=== PATIENT | male | born 1990 | race Caucasian/White ===

== ENCOUNTER 2017-06-24 16:43 | Emergency (ER) | payer MEDICARE, MEDICAID ==
[~2017-06-24] VITALS: Ht 177.8 cm; Wt 75.0 kg
[~2017-06-24 16:43] MED LIST: GUAI120015 PO; LORA1TAB PO; MUPI22OI26 TP; PALI156D IM
[2017-06-24 17:32] LABS: BASOPHILS % (AUTO) 0.3 % (0-1); EOSINOPHILS # (AUTO) 0.4 X10'3 (0-0.9); EOSINOPHILS % (AUTO) 3.9 % (0-6); HEMATOCRIT 44.8 % (42.0-52.0); HEMOGLOBIN 15.9 g/dl (14.0-17.9); LYMPHOCYTES % (AUTO) 19.9 % (21-51); MEAN CORPUSCULAR HEMOGLOBIN 32.3 PG (27.0-31.0); MEAN CORPUSCULAR HGB CONC 35.4 % (33.0-36.5); MEAN CORPUSCULAR VOLUME 91.3 FL (78-98); MEAN PLATELET VOLUME 9.3 FL (7.4-10.4); MONOCYTES # (AUTO) 0.5 X10'3 (0-0.9); MONOCYTES % (AUTO) 4.7 % (2-12); NEUTROPHILS # (AUTO) 7.1 X10'3 (1.8-7.7); NEUTROPHILS % (AUTO) 71.2 % (42-75); PLATELET COUNT 216 X10'3 (140-440); RED BLOOD COUNT 4.91 X10'6 (4.70-6.10); RED CELL DISTRIBUTION WIDTH 13.1 % (11.5-14.5)
[2017-06-24 18:01] LABS: ALANINE AMINOTRANSFERASE 26 U/L (12-78); ALBUMIN/GLOBULIN RATIO 1.3 (1.1-1.5); ALKALINE PHOSPHATASE 69 IU/L (46-116); ANION GAP 15 (8-16); ASPARTATE AMINO TRANSFERASE 31 U/L (10-37); BILIRUBIN,TOTAL 0.6 MG/DL (0.1-1.0); BLOOD UREA NITROGEN 11 MG/DL (7-18); BUN/CREATININE RATIO 12.2 (5.4-32.0); CALCIUM 8.7 MG/DL (8.5-10.1); CHLORIDE 102 MMOL/L (99-107); ETHANOL 0.199 GM/DL (0.0-0.010); GLUCOSE 130 MG/DL (70-104); SODIUM 140 MMOL/L (135-145); eGFR > 90 ML/MIN
[2017-06-24 18:02] LABS: ACETAMINOPHEN < 2.0 UG/ML (10-30)
[2017-06-24 18:04] LABS: POTASSIUM 2.7 MMOL/L (3.5-5.1)
[2017-06-24] MEDS ORDERED: potassium Cl 20 mEq SR tablet PO STA (18:10)
[2017-06-24] MEDS: potassium 10mEq/100ml NS w/LIDOcaine (10mg/bag) IV SCH ×2 (18:41→19:10)
[2017-06-24 18:44] LABS: CLARITY,URINE Clear (Clear); COLOR,URINE Yellow (Yellow); GLUCOSE, URINE Negative (Neg); KETONES,URINE Negative (Neg); LEUKOCYTE ESTERASE ,URINE Negative (Neg); NITRITES, URINE Negative (Neg); OCCULT BLOOD,URINE Negative (Neg); PH,URINE 5.5 (4.8-8.0); PROTEIN,URINE Negative (Neg); UROBILINOGEN,URINE 0.2 E.U/dL (0.2-1.0)
[2017-06-24 18:45] LABS: UA COLLECTION TYPE URINAL
[2017-06-24 19:05] LABS: URINE AMPHETAMINE SCREEN POSITIVE (Neg); URINE BARBITUATE SCREEN NEGATIVE (Neg); URINE BENZODIAZEPINES SCREEN NEGATIVE (Neg); URINE CANNABINOID SCREEN POSITIVE (Neg); URINE COCAINE SCREEN NEGATIVE (Neg); URINE METHADONE SCREEN NEGATIVE (Neg); URINE OPIATE SCREEN NEGATIVE (Neg); URINE PHENCYCLIDINE SCREEN NEGATIVE (Neg)
[2017-06-24] MEDS ORDERED: phenobarbital inj 260 MG in normal saline 100ml IV soln 99 ML IV STA (21:12)
[2017-06-24] MEDS ORDERED: normal saline 1000ML IV soln IVB ONE (21:15)
[2017-06-24] MEDS ORDERED: magnesium oxide 400mg tablet PO ONE (21:15)
[2017-06-24] MEDS ORDERED: thiamine 100mg tablet PO ONE (21:15)
[2017-06-24] MEDS ORDERED: phenobarbital sod 130mg/ml inj. IV ONE ×2 (21:40)
[2017-06-24] MEDS ORDERED: normal saline 100ml IV soln 100 ML IV ONE (21:40)
[2017-06-24] MEDS ORDERED: nicotine 21mg patch - 24 hr TD ONE (23:15)
[2017-06-25 06:33] LABS: MAGNESIUM 1.9 MG/DL (1.5-2.4); POTASSIUM 5.1 MMOL/L (3.5-5.1)
[2017-06-25 07:00] VITALS: BP 111/65
[2017-06-25] MEDS ORDERED: LORazepam 1 MG tablet PO ONE (11:10)
== END 2017-06-25 12:14 | disposition home or self-care (01) ==
LOC: ER 16:44
DX: R45.851 Suicidal ideations (principal); F32.9 Major depressive disorder, single episode, unspecified; E87.6 Hypokalemia; F20.9 Schizophrenia, unspecified; F41.9 Anxiety disorder, unspecified; F12.10 Cannabis abuse, uncomplicated; S60.811A Abrasion of right wrist, initial encounter; Z56.0 Unemployment, unspecified; W26.8XXA Contact with other sharp object(s), not elsewhere classified, initial encounter; Y93.89 Activity, other specified; Y92.89 Other specified places as the place of occurrence of the external cause; Y99.8 Other external cause status
CPT/HCPCS: 36415; 80053; 80305; 80320; 80329; 81003; 82948; 83735; 84132; 84443; 85025; 93005; 96361; 96365; 96375; 99285; J2560; J3480; J7030

== ENCOUNTER 2017-07-28 15:17 | Emergency (ER) | payer MEDICARE, MEDICAID ==
[~2017-07-28 15:17] MED LIST changes: -GUAI120015 PO; -LORA1TAB PO; -MUPI22OI26 TP; +NO HOME MEDS; -PALI156D IM
== END 2017-07-28 16:03 | disposition left against medical advice (07) ==
LOC: ER 15:18
DX: Z00.8 Encounter for other general examination (principal); Z53.21 Procedure and treatment not carried out due to patient leaving prior to being seen by health care provider

== ENCOUNTER 2017-07-30 14:15 | Emergency (ER) | payer MEDICARE, MEDICAID ==
[~2017-07-30] VITALS: Ht 152.4 cm; Wt 59.1 kg
[2017-07-30] MEDS ORDERED: normal saline 1000ML IV soln IVB ONE (14:25)
[2017-07-30] MEDS ORDERED: haloperidol lactate 5mg/ml inj IM ONE (14:40)
[2017-07-30] MEDS ORDERED: diphenhydrAMINE 50 mg/ml inj IM ONE (14:40)
[2017-07-30] MEDS ORDERED: LORazepam 2 mg/ml vial IM ONE (14:40)
[2017-07-30 14:41] LABS: BASOPHILS % (AUTO) 0.3 % (0-1); EOSINOPHILS # (AUTO) 0.3 X10'3 (0-0.9); EOSINOPHILS % (AUTO) 1.5 % (0-6); HEMATOCRIT 54.1 % (42.0-52.0); LYMPHOCYTES # (AUTO) 2.3 X10'3 (1.1-4.8); LYMPHOCYTES % (AUTO) 12.7 % (21-51); MEAN CORPUSCULAR HGB CONC 34.5 % (33.0-36.5); MEAN CORPUSCULAR VOLUME 92.6 FL (78-98); MEAN PLATELET VOLUME 9.5 FL (7.4-10.4); MONOCYTES # (AUTO) 1.2 X10'3 (0-0.9); MONOCYTES % (AUTO) 6.8 % (2-12); NEUTROPHILS # (AUTO) 14.3 X10'3 (1.8-7.7); NEUTROPHILS % (AUTO) 78.7 % (42-75); PLATELET COUNT 280 X10'3 (140-440); RED BLOOD COUNT 5.85 X10'6 (4.70-6.10); RED CELL DISTRIBUTION WIDTH 12.7 % (11.5-14.5); WHITE BLOOD COUNT 18.2 X10'3 (4.5-11.0)
[2017-07-30 14:44] LABS: HEMOGLOBIN 18.7 g/dl (14.0-17.9)
[2017-07-30 14:56] LABS: ALANINE AMINOTRANSFERASE 20 U/L (12-78); ALBUMIN/GLOBULIN RATIO 1.4 (1.1-1.5); ALKALINE PHOSPHATASE 96 IU/L (46-116); ANION GAP 14 (8-16); ASPARTATE AMINO TRANSFERASE 18 U/L (10-37); BILIRUBIN,TOTAL 1.5 MG/DL (0.1-1.0); BLOOD UREA NITROGEN 12 MG/DL (7-18); BUN/CREATININE RATIO 9.2 (5.4-32.0); CALCIUM 10.5 MG/DL (8.5-10.1); CHLORIDE 103 MMOL/L (99-107); GLUCOSE 109 MG/DL (70-104); POTASSIUM 4.5 MMOL/L (3.5-5.1); SODIUM 143 MMOL/L (135-145); TOTAL CARBON DIOXIDE 26.5 MMOL/L (24-32); TOTAL PROTEIN 8.7 G/DL (6.4-8.2); eGFR 67 ML/MIN
[2017-07-30 15:06] LABS: CREATINE KINASE 82 U/L (39-308)
[2017-07-30 15:07] LABS: ETHANOL < 0.010 GM/DL (0.0-0.010)
[2017-07-30 15:16] LABS: CLARITY,URINE CLEAR (Clear); GLUCOSE, URINE NEGATIVE (Neg); KETONES,URINE TRACE mg/dl (Neg); LEUKOCYTE ESTERASE ,URINE NEGATIVE (Neg); NITRITES, URINE NEGATIVE (Neg); OCCULT BLOOD,URINE NEGATIVE (Neg); PROTEIN,URINE NEGATIVE (Neg); UROBILINOGEN,URINE 0.2 E.U/dL (0.2-1.0)
[2017-07-30 15:18] LABS: COLOR,URINE DARK YELLOW (Yellow); UA COLLECTION TYPE STRAIGHT CATH
[2017-07-30 15:23] LABS: URINE AMPHETAMINE SCREEN POSITIVE (Neg); URINE BARBITUATE SCREEN NEGATIVE (Neg); URINE BENZODIAZEPINES SCREEN NEGATIVE (Neg); URINE CANNABINOID SCREEN POSITIVE (Neg); URINE COCAINE SCREEN NEGATIVE (Neg); URINE METHADONE SCREEN NEGATIVE (Neg); URINE OPIATE SCREEN NEGATIVE (Neg); URINE PHENCYCLIDINE SCREEN NEGATIVE (Neg)
[2017-07-31] MEDS ORDERED: ziprasidone IM 20mg inj **IM only IM PRN (09:10)
[2017-07-31 10:27] LABS: C-REACTIVE PROTEIN 0.17 MG/DL (0.0-0.5)
[2017-07-31] MEDS: LORazepam 1 MG tablet PO PRN (11:12)
[2017-07-31] MEDS: ziprasidone 20mg capsule PO SCH (20:41)
[2017-08-01 03:35] LABS: ALANINE AMINOTRANSFERASE 19 U/L (12-78); ALBUMIN 3.5 G/DL (3.4-5.0); ALBUMIN/GLOBULIN RATIO 1.2 (1.1-1.5); ALKALINE PHOSPHATASE 77 IU/L (46-116); ANION GAP 9 (8-16); ASPARTATE AMINO TRANSFERASE 24 U/L (10-37); BILIRUBIN,TOTAL 0.9 MG/DL (0.1-1.0); BLOOD UREA NITROGEN 17 MG/DL (7-18); BUN/CREATININE RATIO 18.5 (5.4-32.0); CALCIUM 8.6 MG/DL (8.5-10.1); CHLORIDE 105 MMOL/L (99-107); CREATININE 0.92 MG/DL (0.60-1.10); GLUCOSE 82 MG/DL (70-104); POTASSIUM 3.9 MMOL/L (3.5-5.1); SODIUM 141 MMOL/L (135-145); TOTAL CARBON DIOXIDE 26.8 MMOL/L (24-32); TOTAL PROTEIN 6.5 G/DL (6.4-8.2); eGFR > 90 ML/MIN
[2017-08-01] MEDS: LORazepam 1 MG tablet PO PRN ×2 (08:32→16:30)
[2017-08-01] MEDS: ziprasidone 20mg capsule PO SCH ×2 (08:32→20:23)
[2017-08-01 14:16] LABS: BASOPHILS % (AUTO) 0.4 % (0-1); EOSINOPHILS # (AUTO) 0.3 X10'3 (0-0.9); EOSINOPHILS % (AUTO) 3.2 % (0-6); HEMATOCRIT 46.3 % (42.0-52.0); HEMOGLOBIN 16.1 g/dl (14.0-17.9); LYMPHOCYTES # (AUTO) 1.3 X10'3 (1.1-4.8); LYMPHOCYTES % (AUTO) 16.9 % (21-51); MEAN CORPUSCULAR HEMOGLOBIN 32.2 PG (27.0-31.0); MEAN CORPUSCULAR HGB CONC 34.8 % (33.0-36.5); MEAN CORPUSCULAR VOLUME 92.5 FL (78-98); MEAN PLATELET VOLUME 9.3 FL (7.4-10.4); MONOCYTES # (AUTO) 0.4 X10'3 (0-0.9); MONOCYTES % (AUTO) 4.5 % (2-12); NEUTROPHILS # (AUTO) 5.9 X10'3 (1.8-7.7); PLATELET COUNT 182 X10'3 (140-440); RED BLOOD COUNT 5.01 X10'6 (4.70-6.10); RED CELL DISTRIBUTION WIDTH 13.3 % (11.5-14.5); WHITE BLOOD COUNT 7.9 X10'3 (4.5-11.0)
[2017-08-01 14:31] LABS: ALANINE AMINOTRANSFERASE 19 U/L (12-78); ALBUMIN 3.6 G/DL (3.4-5.0); ALBUMIN/GLOBULIN RATIO 1.2 (1.1-1.5); ALKALINE PHOSPHATASE 79 IU/L (46-116); ANION GAP 9 (8-16); ASPARTATE AMINO TRANSFERASE 22 U/L (10-37); BILIRUBIN,TOTAL 0.8 MG/DL (0.1-1.0); BLOOD UREA NITROGEN 13 MG/DL (7-18); BUN/CREATININE RATIO 13.5 (5.4-32.0); CALCIUM 8.6 MG/DL (8.5-10.1); CHLORIDE 106 MMOL/L (99-107); CREATININE 0.96 MG/DL (0.60-1.10); GLUCOSE 127 MG/DL (70-104); POTASSIUM 3.9 MMOL/L (3.5-5.1); SODIUM 141 MMOL/L (135-145); TOTAL CARBON DIOXIDE 26.5 MMOL/L (24-32); TOTAL PROTEIN 6.6 G/DL (6.4-8.2); eGFR > 90 ML/MIN
[2017-08-02 05:43] VITALS: BP 100/64
[2017-08-02] MEDS: ziprasidone 20mg capsule PO SCH (08:55)
== END 2017-08-02 14:36 | disposition home or self-care (01) ==
LOC: ER 14:16
DX: F29 Unspecified psychosis not due to a substance or known physiological condition (principal); E86.0 Dehydration; N28.9 Disorder of kidney and ureter, unspecified; F12.10 Cannabis abuse, uncomplicated; F15.10 Other stimulant abuse, uncomplicated; F32.9 Major depressive disorder, single episode, unspecified; F41.9 Anxiety disorder, unspecified; F20.9 Schizophrenia, unspecified; Z56.0 Unemployment, unspecified; Z88.8 Allergy status to other drugs, medicaments and biological substances
CPT/HCPCS: 36415; 80053; 80305; 80320; 81003; 82550; 82553; 84443; 84484; 85025; 86140; 93005; 96360; 96372; 99285; A4353; J1200; J1630; J2060; J7030

== ENCOUNTER 2017-08-03 17:41 | Emergency (ER) | payer MEDICARE, MEDICAID ==
[~2017-08-03] VITALS: Ht 1604.7 cm; Wt 72.0 kg
[2017-08-03] MEDS ORDERED: haloperidol lactate 5mg/ml inj IM ONE (18:10)
[2017-08-03] MEDS ORDERED: LORazepam 2 mg/ml vial IM ONE (18:10)
[2017-08-03] MEDS ORDERED: diphenhydrAMINE 50 mg/ml inj IM ONE (18:10)
[2017-08-03 18:57] LABS: BASOPHILS % (AUTO) 0.4 % (0-1); EOSINOPHILS # (AUTO) 0.3 X10'3 (0-0.9); EOSINOPHILS % (AUTO) 2.5 % (0-6); HEMATOCRIT 43.5 % (42.0-52.0); HEMOGLOBIN 15.2 g/dl (14.0-17.9); LYMPHOCYTES # (AUTO) 2.1 X10'3 (1.1-4.8); LYMPHOCYTES % (AUTO) 18.1 % (21-51); MEAN CORPUSCULAR HEMOGLOBIN 32.5 PG (27.0-31.0); MEAN PLATELET VOLUME 9.7 FL (7.4-10.4); MONOCYTES # (AUTO) 0.8 X10'3 (0-0.9); MONOCYTES % (AUTO) 6.9 % (2-12); NEUTROPHILS # (AUTO) 8.4 X10'3 (1.8-7.7); NEUTROPHILS % (AUTO) 72.1 % (42-75); PLATELET COUNT 201 X10'3 (140-440); RED BLOOD COUNT 4.67 X10'6 (4.70-6.10); RED CELL DISTRIBUTION WIDTH 12.9 % (11.5-14.5); WHITE BLOOD COUNT 11.7 X10'3 (4.5-11.0)
[2017-08-03 19:11] LABS: ALANINE AMINOTRANSFERASE 22 U/L (12-78); ALBUMIN 3.7 G/DL (3.4-5.0); ALBUMIN/GLOBULIN RATIO 1.3 (1.1-1.5); ALKALINE PHOSPHATASE 110 IU/L (46-116); ANION GAP 7 (8-16); ASPARTATE AMINO TRANSFERASE 19 U/L (10-37); BILIRUBIN,TOTAL 0.3 MG/DL (0.1-1.0); BLOOD UREA NITROGEN 11 MG/DL (7-18); BUN/CREATININE RATIO 7.7 (5.4-32.0); CALCIUM 8.8 MG/DL (8.5-10.1); CHLORIDE 108 MMOL/L (99-107); CREATININE 1.43 MG/DL (0.60-1.10); GLUCOSE 75 MG/DL (70-104); POTASSIUM 4.1 MMOL/L (3.5-5.1); SODIUM 144 MMOL/L (135-145); TOTAL CARBON DIOXIDE 29.3 MMOL/L (24-32); TOTAL PROTEIN 6.6 G/DL (6.4-8.2); eGFR 60 ML/MIN
[2017-08-03 19:14] LABS: CLARITY,URINE CLEAR (Clear); COLOR,URINE YELLOW (Yellow); GLUCOSE, URINE NEGATIVE (Neg); KETONES,URINE NEGATIVE (Neg); LEUKOCYTE ESTERASE ,URINE NEGATIVE (Neg); NITRITES, URINE NEGATIVE (Neg); OCCULT BLOOD,URINE NEGATIVE (Neg); PROTEIN,URINE NEGATIVE (Neg); UROBILINOGEN,URINE 0.2 E.U/dL (0.2-1.0)
[2017-08-03 19:15] LABS: UA COLLECTION TYPE CLN CATCH MIDSTREAM
[2017-08-03 19:16] LABS: ETHANOL < 0.010 GM/DL (0.0-0.010)
[2017-08-03 19:19] LABS: URINE AMPHETAMINE SCREEN NEGATIVE (Neg); URINE BARBITUATE SCREEN NEGATIVE (Neg); URINE BENZODIAZEPINES SCREEN NEGATIVE (Neg); URINE CANNABINOID SCREEN POSITIVE (Neg); URINE COCAINE SCREEN NEGATIVE (Neg); URINE METHADONE SCREEN NEGATIVE (Neg); URINE OPIATE SCREEN NEGATIVE (Neg); URINE PHENCYCLIDINE SCREEN NEGATIVE (Neg)
[2017-08-04] MEDS ORDERED: PALI3TAB PO ×2 (02:41→02:46)
[2017-08-04] MEDS: PALIPERIDONE 3 MG TAB.ER.24 PO SCH (08:53)
[2017-08-04] MEDS: LORazepam 1 MG tablet PO PRN (16:31)
[2017-08-05] MEDS: PALIPERIDONE 3 MG TAB.ER.24 PO SCH (08:57)
[2017-08-05] MEDS: LORazepam 1 MG tablet PO PRN ×2 (14:56→20:08)
[2017-08-06] MEDS: PALIPERIDONE 3 MG TAB.ER.24 PO SCH (08:26)
[2017-08-06] MEDS: LORazepam 1 MG tablet PO PRN ×3 (08:26→22:15)
[2017-08-07 05:34] VITALS: BP 109/66
[2017-08-07] MEDS: PALIPERIDONE 3 MG TAB.ER.24 PO SCH (08:07)
[2017-08-07] MEDS: LORazepam 1 MG tablet PO PRN (16:01)
[2017-08-07] MEDS ORDERED: LORA-269 PO (17:26)
== END 2017-08-07 16:41 | disposition home or self-care (01) ==
LOC: ER 17:41
DX: F20.9 Schizophrenia, unspecified (principal); F41.9 Anxiety disorder, unspecified; F32.9 Major depressive disorder, single episode, unspecified; R45.851 Suicidal ideations; F15.90 Other stimulant use, unspecified, uncomplicated; F12.90 Cannabis use, unspecified, uncomplicated; Z56.0 Unemployment, unspecified; Z86.14 Personal history of Methicillin resistant Staphylococcus aureus infection; Z88.8 Allergy status to other drugs, medicaments and biological substances; Z79.899 Other long term (current) drug therapy
CPT/HCPCS: 36415; 80053; 80305; 80320; 81003; 85025; 96372; 99285; J1200; J1630; J2060

== ENCOUNTER 2017-08-07 15:15 | Inpatient (IN) | payer MEDICARE, MEDICAID ==
[~2017-08-07] VITALS: Ht 170.2 cm; Wt 74.2 kg
[~2017-08-07 15:15] MED LIST changes: +PALI3TAB PO
[2017-08-07 16:27] VITALS: BP 127/82
[2017-08-07] MEDS ORDERED: LORA-269 PO (17:26)
[2017-08-07] MEDS: LORazepam 1 MG tablet PO PRN (20:38)
[2017-08-07 20:42] VITALS: BP 116/83
[2017-08-08 08:00] VITALS: BP 111/72
[2017-08-08] MEDS ORDERED: PALIPERIDONE 3 MG TAB.ER.24 PO SCH (08:00)
[2017-08-08 08:32] LABS: CHOL/HDL RATIO 2.8 (0.00-4.99); CHOLESTEROL 123 MG/DL (0-200); HDL CHOLESTEROL 44 MG/DL (35-60); LDL CHOLESTEROL 71 MG/DL (50-100); TRIGLYCERIDES 77 MG/DL (20-135)
[2017-08-08] MEDS ORDERED: duloxetine 30mg CAPSULE.DR PO ONE (08:35)
[2017-08-08 17:05] LABS: HIV ANTIBODY 1&2 RAPID NON-REACTIVE (Neg)
[2017-08-08 19:45] VITALS: BP 135/78
[2017-08-08] MEDS: nicotine prolacrilex 2mg gum BC PRN (19:46)
[2017-08-08] MEDS ORDERED: traZODone 50mg tablet PO SCH (21:00)
[2017-08-09 08:00] VITALS: BP 112/76
[2017-08-09] MEDS ORDERED: duloxetine 30mg CAPSULE.DR PO SCH (08:00)
[2017-08-09] MEDS: paliperidone 1.5mg ER tablet PO SCH (08:06)
[2017-08-09] MEDS: nicotine prolacrilex 2mg gum BC PRN ×3 (08:32→16:56)
[2017-08-09] MEDS: LORazepam 1 MG tablet PO PRN (12:07)
[2017-08-09 19:00] VITALS: BP 105/71
[2017-08-09] MEDS: traZODone 50mg tablet PO SCH (21:29)
[2017-08-10 07:41] VITALS: BP 116/67
[2017-08-10] MEDS: paliperidone 1.5mg ER tablet PO SCH (07:49)
[2017-08-10] MEDS: duloxetine 30mg CAPSULE.DR PO SCH (07:50)
[2017-08-10 08:48] LABS: HBSAG SCREEN Negative (Negative); HEP A AB, IGM Negative (Negative); HEP B CORE AB, IGM Negative (Negative); HEPATITIS C ANTIBODY <0.1 s/co ratio (0.0-0.9)
[2017-08-10] MEDS: LORazepam 1 MG tablet PO PRN (11:52)
[2017-08-10] MEDS: nicotine prolacrilex 2mg gum BC PRN (11:53)
[2017-08-10] MEDS ORDERED: hydrOXYzine 25 MG tablet PO PRN (18:00)
[2017-08-10 19:55] VITALS: BP 118/71
[2017-08-10] MEDS: traZODone 50mg tablet PO SCH (20:15)
[2017-08-10] MEDS: docusate sod 100mg capsule PO SCH (20:15)
[2017-08-11] MEDS: docusate sod 100mg capsule PO SCH ×2 (07:45→20:57)
[2017-08-11] MEDS: PALIPERIDONE 3 MG TAB.ER.24 PO SCH (07:46)
[2017-08-11] MEDS: duloxetine 30mg CAPSULE.DR PO SCH (07:46)
[2017-08-11 08:00] VITALS: BP 126/80
[2017-08-11] MEDS: nicotine prolacrilex 2mg gum BC PRN (19:30)
[2017-08-11 20:00] VITALS: BP 137/70
[2017-08-11] MEDS: traZODone 50mg tablet PO SCH (20:57)
[2017-08-11] MEDS: carbamide peroxide 15ml bottle EACH EAR SCH (20:58)
[2017-08-12 08:00] VITALS: BP 103/59
[2017-08-12] MEDS: carbamide peroxide 15ml bottle EACH EAR SCH ×2 (08:12→20:42)
[2017-08-12] MEDS: docusate sod 100mg capsule PO SCH ×2 (08:12→20:43)
[2017-08-12] MEDS: duloxetine 30mg CAPSULE.DR PO SCH (08:12)
[2017-08-12] MEDS: PALIPERIDONE 3 MG TAB.ER.24 PO SCH (08:12)
[2017-08-12 20:00] VITALS: BP 115/75
[2017-08-12] MEDS: traZODone 50mg tablet PO SCH (20:43)
[2017-08-13 08:00] VITALS: BP 107/69
[2017-08-13] MEDS: docusate sod 100mg capsule PO SCH ×2 (08:48→20:23)
[2017-08-13] MEDS: duloxetine 30mg CAPSULE.DR PO SCH (08:49)
[2017-08-13] MEDS: PALIPERIDONE 3 MG TAB.ER.24 PO SCH (08:49)
[2017-08-13] MEDS: carbamide peroxide 15ml bottle EACH EAR SCH ×2 (08:50→20:00)
[2017-08-13 20:00] VITALS: BP 120/71
[2017-08-13] MEDS: traZODone 50mg tablet PO SCH (20:23)
[2017-08-14] MEDS: docusate sod 100mg capsule PO SCH ×2 (07:47→20:07)
[2017-08-14] MEDS: duloxetine 30mg CAPSULE.DR PO SCH (07:47)
[2017-08-14] MEDS: PALIPERIDONE 3 MG TAB.ER.24 PO SCH (07:48)
[2017-08-14 08:00] VITALS: BP 113/68
[2017-08-14] MEDS: carbamide peroxide 15ml bottle EACH EAR SCH ×2 (09:05→20:00)
[2017-08-14 19:52] VITALS: BP 122/69
[2017-08-14] MEDS: traZODone 50mg tablet PO SCH (20:06)
[2017-08-14] MEDS: neomy sulf/polymyx B sulf/HC otic soln 10ml RIGHT EAR SCH (20:09)
[2017-08-15] MEDS: PALIPERIDONE 3 MG TAB.ER.24 PO SCH (08:01)
[2017-08-15] MEDS: docusate sod 100mg capsule PO SCH ×2 (08:01→20:33)
[2017-08-15] MEDS: duloxetine 30mg CAPSULE.DR PO SCH (08:01)
[2017-08-15 08:06] VITALS: BP 101/65
[2017-08-15] MEDS: neomy sulf/polymyx B sulf/HC otic soln 10ml RIGHT EAR SCH ×3 (08:57→20:40)
[2017-08-15] MEDS: nicotine 21mg patch - 24 hr TD SCH (12:13)
[2017-08-15] MEDS: LORazepam 1 MG tablet PO PRN (14:53)
[2017-08-15 20:00] VITALS: BP 129/77
[2017-08-15] MEDS: prazosin 1mg capsule PO SCH (20:33)
[2017-08-15] MEDS: traZODone 50mg tablet PO SCH (20:33)
[2017-08-16 08:23] VITALS: BP 112/64
[2017-08-16] MEDS: duloxetine 30mg CAPSULE.DR PO SCH (08:35)
[2017-08-16] MEDS: docusate sod 100mg capsule PO SCH ×2 (08:35→20:03)
[2017-08-16] MEDS: neomy sulf/polymyx B sulf/HC otic soln 10ml RIGHT EAR SCH ×3 (08:36→21:30)
[2017-08-16] MEDS: nicotine 21mg patch - 24 hr TD SCH (08:36)
[2017-08-16] MEDS: paliperidone 1.5mg ER tablet PO SCH ×2 (09:11→11:59)
[2017-08-16 19:00] VITALS: BP 116/78
[2017-08-16] MEDS: prazosin 1mg capsule PO SCH (20:03)
[2017-08-16] MEDS: traZODone 50mg tablet PO SCH (20:03)
[2017-08-17 07:48] VITALS: BP 109/60
[2017-08-17] MEDS: nicotine 21mg patch - 24 hr TD SCH (08:46)
[2017-08-17] MEDS: docusate sod 100mg capsule PO SCH ×2 (08:46→20:19)
[2017-08-17] MEDS: paliperidone 1.5mg ER tablet PO SCH (08:47)
[2017-08-17] MEDS: duloxetine 30mg CAPSULE.DR PO SCH (08:49)
[2017-08-17] MEDS: neomy sulf/polymyx B sulf/HC otic soln 10ml RIGHT EAR SCH ×3 (08:51→20:30)
[2017-08-17] MEDS ORDERED: OLANZapine 5mg rapidly disint. tablet PO ONE (09:30)
[2017-08-17] MEDS: LORazepam 1 MG tablet PO PRN (09:57)
[2017-08-17 19:00] VITALS: BP 105/63
[2017-08-17] MEDS: prazosin 1mg capsule PO SCH (20:17)
[2017-08-17] MEDS: traZODone 50mg tablet PO SCH (20:18)
[2017-08-18] MEDS: docusate sod 100mg capsule PO SCH ×2 (07:43→20:24)
[2017-08-18] MEDS: paliperidone 1.5mg ER tablet PO SCH (07:43)
[2017-08-18] MEDS: duloxetine 30mg CAPSULE.DR PO SCH (07:44)
[2017-08-18] MEDS: nicotine prolacrilex 2mg gum BC PRN (07:50)
[2017-08-18] MEDS: nicotine 21mg patch - 24 hr TD SCH (07:53)
[2017-08-18 08:00] VITALS: BP 95/51
[2017-08-18] MEDS: neomy sulf/polymyx B sulf/HC otic soln 10ml RIGHT EAR SCH ×3 (08:53→21:33)
[2017-08-18] MEDS ORDERED: magnesium hydroxide 30ml (MOM) UD suspension PO PRN (15:05)
[2017-08-18 19:00] VITALS: BP 124/70
[2017-08-18] MEDS: traZODone 50mg tablet PO SCH (20:25)
[2017-08-18] MEDS: prazosin 1mg capsule PO SCH (20:25)
[2017-08-18] MEDS: OLANZapine 2.5MG tablet PO SCH (20:26)
[2017-08-19 08:00] VITALS: BP 98/55
[2017-08-19] MEDS: duloxetine 30mg CAPSULE.DR PO SCH (08:20)
[2017-08-19] MEDS: nicotine 21mg patch - 24 hr TD SCH (08:20)
[2017-08-19] MEDS: docusate sod 100mg capsule PO SCH ×3 (08:20→20:11)
[2017-08-19] MEDS: paliperidone 1.5mg ER tablet PO SCH (08:20)
[2017-08-19] MEDS: neomy sulf/polymyx B sulf/HC otic soln 10ml RIGHT EAR SCH ×3 (08:21→20:52)
[2017-08-19] MEDS: LORazepam 1 MG tablet PO PRN (19:52)
[2017-08-19 20:00] VITALS: BP 118/75
[2017-08-19] MEDS ORDERED: OLANZapine 5mg rapidly disint. tablet PO PRN (20:05)
[2017-08-19] MEDS: traZODone 50mg tablet PO SCH (20:52)
[2017-08-19] MEDS: OLANZapine 2.5MG tablet PO SCH (20:52)
[2017-08-19] MEDS: prazosin 1mg capsule PO SCH (21:00)
[2017-08-20 08:00] VITALS: BP 97/60
[2017-08-20] MEDS: docusate sod 100mg capsule PO SCH (08:00)
[2017-08-20] MEDS ORDERED: PRAZ1CAP5 PO (08:20)
[2017-08-20] MEDS ORDERED: DULO30CA51 PO (08:20)
[2017-08-20] MEDS ORDERED: NICO-687 TD (08:20)
[2017-08-20] MEDS ORDERED: PALI6TAB6 PO (08:20)
[2017-08-20] MEDS ORDERED: HYDR-3686 PO (08:20)
[2017-08-20] MEDS ORDERED: TRAZ-143 PO (08:20)
[2017-08-20] MEDS ORDERED: COL100C PO (08:20)
[2017-08-20] MEDS: neomy sulf/polymyx B sulf/HC otic soln 10ml RIGHT EAR SCH ×2 (08:45→12:38)
[2017-08-20] MEDS: nicotine 21mg patch - 24 hr TD SCH (08:46)
[2017-08-20] MEDS: paliperidone 1.5mg ER tablet PO SCH (08:46)
[2017-08-20] MEDS: duloxetine 30mg CAPSULE.DR PO SCH (08:46)
== END 2017-08-20 13:45 | disposition home or self-care (01) | DRG 885 ==
LOC: ADULT MH 15:15
PROVIDERS: ADMIT Psychiatry & Neurology Psychiatry; ATTEND Psychiatry & Neurology Psychiatry
DX: F33.2 Major depressive disorder, recurrent severe without psychotic features (principal); R45.851 Suicidal ideations; F15.20 Other stimulant dependence, uncomplicated; F17.210 Nicotine dependence, cigarettes, uncomplicated; F43.10 Post-traumatic stress disorder, unspecified; F20.9 Schizophrenia, unspecified; F12.90 Cannabis use, unspecified, uncomplicated; H60.90 Unspecified otitis externa, unspecified ear; B19.20 Unspecified viral hepatitis C without hepatic coma; F16.90 Hallucinogen use, unspecified, uncomplicated; F29 Unspecified psychosis not due to a substance or known physiological condition; Z59.0 Homelessness; Z81.8 Family history of other mental and behavioral disorders
CPT/HCPCS: 36415; 71045; 80061; 80074; 83036; 86703; 87070; 99406; Q0177

== ENCOUNTER 2017-08-25 10:45 | Emergency (ER) | payer MEDICARE, MEDICAID ==
[~2017-08-25] VITALS: Ht 172.7 cm; Wt 72.0 kg
[~2017-08-25 10:45] MED LIST changes: +COL100C PO; +DULO30CA51 PO; +HYDR-3686 PO; +NICO-687 TD; -NO HOME MEDS; -PALI3TAB PO; +PALI6TAB6 PO; +PRAZ1CAP5 PO; +TRAZ-143 PO
[2017-08-25] MEDS ORDERED: normal saline 1000ML IV soln IVB ONE (11:00)
[2017-08-25] MEDS ORDERED: magnesium/D5W IVPB 100 ML IV ONE (11:00)
[2017-08-25] MEDS ORDERED: LORazepam 2 mg/ml vial IV ONE (11:00)
[2017-08-25] MEDS ORDERED: thiamine 100mg/ml 2ml inj. IV ONE (11:40)
[2017-08-25] MEDS ORDERED: folic acid 1mg/0.2ml inj IV ONE (11:40)
[2017-08-25 11:52] LABS: BASOPHILS # (AUTO) 0.1 X10'3 (0-0.2); BASOPHILS % (AUTO) 0.6 % (0-1); EOSINOPHILS # (AUTO) 0.4 X10'3 (0-0.9); EOSINOPHILS % (AUTO) 4.3 % (0-6); HEMATOCRIT 40.4 % (42.0-52.0); HEMOGLOBIN 13.9 g/dl (14.0-17.9); LYMPHOCYTES # (AUTO) 1.8 X10'3 (1.1-4.8); LYMPHOCYTES % (AUTO) 20.2 % (21-51); MEAN CORPUSCULAR HEMOGLOBIN 32.4 PG (27.0-31.0); MEAN CORPUSCULAR HGB CONC 34.5 % (33.0-36.5); MEAN CORPUSCULAR VOLUME 93.9 FL (78-98); MEAN PLATELET VOLUME 8.6 FL (7.4-10.4); MONOCYTES # (AUTO) 0.6 X10'3 (0-0.9); MONOCYTES % (AUTO) 7.2 % (2-12); NEUTROPHILS # (AUTO) 6.1 X10'3 (1.8-7.7); NEUTROPHILS % (AUTO) 67.7 % (42-75); PLATELET COUNT 229 X10'3 (140-440); RED CELL DISTRIBUTION WIDTH 13.9 % (11.5-14.5)
[2017-08-25 12:17] LABS: ALANINE AMINOTRANSFERASE 29 U/L (12-78); ALBUMIN 3.2 G/DL (3.4-5.0); ALBUMIN/GLOBULIN RATIO 1.1 (1.1-1.5); ALKALINE PHOSPHATASE 109 IU/L (46-116); ANION GAP 7 (8-16); ASPARTATE AMINO TRANSFERASE 19 U/L (10-37); BILIRUBIN,TOTAL 0.2 MG/DL (0.1-1.0); BLOOD UREA NITROGEN 15 MG/DL (7-18); CHLORIDE 106 MMOL/L (99-107); CREATININE 0.79 MG/DL (0.60-1.10); GLUCOSE 103 MG/DL (70-104); POTASSIUM 3.8 MMOL/L (3.5-5.1); SODIUM 142 MMOL/L (135-145); TOTAL CARBON DIOXIDE 29.1 MMOL/L (24-32); TOTAL PROTEIN 6.1 G/DL (6.4-8.2); eGFR > 90 ML/MIN
[2017-08-25 12:47] LABS: CREATINE KINASE 119 U/L (39-308)
[2017-08-25 12:50] VITALS: BP 113/60
== END 2017-08-25 12:51 | disposition home or self-care (01) ==
LOC: ER 10:45
DX: R56.9 Unspecified convulsions (principal); R51 Headache; F12.90 Cannabis use, unspecified, uncomplicated; F15.90 Other stimulant use, unspecified, uncomplicated; Z88.8 Allergy status to other drugs, medicaments and biological substances; Z86.14 Personal history of Methicillin resistant Staphylococcus aureus infection; Z79.899 Other long term (current) drug therapy; Z56.0 Unemployment, unspecified
CPT/HCPCS: 36415; 70450; 80053; 82550; 82948; 85025; 96365; 96375; 99285; J3411; J3490; J7030

== ENCOUNTER 2017-09-05 09:29 | Emergency (ER) | payer MEDICARE, MEDICAID ==
[~2017-09-05] VITALS: Ht 170.2 cm; Wt 77.0 kg
[2017-09-05 10:02] VITALS: BP 140/87
== END 2017-09-05 11:34 | disposition left against medical advice (07) ==
LOC: ER 09:29
DX: F41.9 Anxiety disorder, unspecified (principal); F32.9 Major depressive disorder, single episode, unspecified; F20.9 Schizophrenia, unspecified; R45.851 Suicidal ideations; F12.90 Cannabis use, unspecified, uncomplicated; F15.90 Other stimulant use, unspecified, uncomplicated; Z56.0 Unemployment, unspecified; Z88.8 Allergy status to other drugs, medicaments and biological substances; Z79.899 Other long term (current) drug therapy
CPT/HCPCS: 99284

== ENCOUNTER 2017-09-07 08:26 | Emergency (ER) | payer MEDICARE, MEDICAID ==
[~2017-09-07] VITALS: Ht 170.2 cm; Wt 77.5 kg
[2017-09-07 08:37] VITALS: BP 131/75
[2017-09-07] MEDS ORDERED: OLAN5TAB5 PO (15:59)
[2017-09-07] MEDS ORDERED: HYDR-3686 PO (16:12)
[2017-09-07] MEDS ORDERED: NICO-687 TOP (16:12)
[2017-09-07] MEDS ORDERED: PRAZ2CAP2 PO (16:13)
[2017-09-07] MEDS ORDERED: TRAZ-143 PO (16:14)
[2017-09-07] MEDS ORDERED: DULO-31 PO (16:15)
== END 2017-09-07 11:03 | disposition left against medical advice (07) ==
LOC: ER 08:27
DX: Z00.00 Encounter for general adult medical examination without abnormal findings (principal); Z76.0 Encounter for issue of repeat prescription; Z53.21 Procedure and treatment not carried out due to patient leaving prior to being seen by health care provider

== ENCOUNTER 2017-09-07 15:36 | Emergency (ER) | payer MEDICARE, MEDICAID ==
[~2017-09-07] VITALS: Ht 170.2 cm; Wt 76.1 kg
[2017-09-07] MEDS ORDERED: OLAN5TAB5 PO (15:59)
[2017-09-07] MEDS ORDERED: HYDR-3686 PO (16:12)
[2017-09-07] MEDS ORDERED: NICO-687 TOP (16:12)
[2017-09-07] MEDS ORDERED: PRAZ2CAP2 PO (16:13)
[2017-09-07] MEDS ORDERED: TRAZ-143 PO (16:14)
[2017-09-07] MEDS ORDERED: DULO-31 PO (16:15)
[2017-09-07] MEDS ORDERED: hydrOXYzine 25 MG tablet PO PRN (16:50)
[2017-09-07 17:19] LABS: URINE AMPHETAMINE SCREEN POSITIVE (Neg); URINE BARBITUATE SCREEN NEGATIVE (Neg); URINE BENZODIAZEPINES SCREEN NEGATIVE (Neg); URINE CANNABINOID SCREEN POSITIVE (Neg); URINE COCAINE SCREEN NEGATIVE (Neg); URINE METHADONE SCREEN NEGATIVE (Neg); URINE OPIATE SCREEN NEGATIVE (Neg); URINE PHENCYCLIDINE SCREEN NEGATIVE (Neg)
[2017-09-07 17:54] LABS: BASOPHILS % (AUTO) 0.1 % (0-1); EOSINOPHILS # (AUTO) 0.1 X10'3 (0-0.9); EOSINOPHILS % (AUTO) 0.4 % (0-6); HEMATOCRIT 45.8 % (42.0-52.0); HEMOGLOBIN 15.7 g/dl (14.0-17.9); LYMPHOCYTES # (AUTO) 1.9 X10'3 (1.1-4.8); LYMPHOCYTES % (AUTO) 14.5 % (21-51); MEAN CORPUSCULAR HEMOGLOBIN 31.6 PG (27.0-31.0); MEAN CORPUSCULAR HGB CONC 34.3 % (33.0-36.5); MEAN CORPUSCULAR VOLUME 92.2 FL (78-98); MEAN PLATELET VOLUME 9.1 FL (7.4-10.4); MONOCYTES % (AUTO) 7.9 % (2-12); NEUTROPHILS # (AUTO) 10.1 X10'3 (1.8-7.7); NEUTROPHILS % (AUTO) 77.1 % (42-75); PLATELET COUNT 270 X10'3 (140-440); RED BLOOD COUNT 4.97 X10'6 (4.70-6.10); RED CELL DISTRIBUTION WIDTH 13.4 % (11.5-14.5); WHITE BLOOD COUNT 13.1 X10'3 (4.5-11.0)
[2017-09-07 18:05] LABS: ALANINE AMINOTRANSFERASE 68 U/L (12-78); ALBUMIN 4.4 G/DL (3.4-5.0); ALBUMIN/GLOBULIN RATIO 1.3 (1.1-1.5); ALKALINE PHOSPHATASE 96 IU/L (46-116); ANION GAP 12 (8-16); ASPARTATE AMINO TRANSFERASE 114 U/L (10-37); BILIRUBIN,TOTAL 1.2 MG/DL (0.1-1.0); BLOOD UREA NITROGEN 21 MG/DL (7-18); BUN/CREATININE RATIO 18.6 (5.4-32.0); CALCIUM 9.1 MG/DL (8.5-10.1); CHLORIDE 100 MMOL/L (99-107); CREATININE 1.13 MG/DL (0.60-1.10); ETHANOL < 0.010 GM/DL (0.0-0.010); GLUCOSE 94 MG/DL (70-104); POTASSIUM 3.8 MMOL/L (3.5-5.1); SODIUM 138 MMOL/L (135-145); TOTAL CARBON DIOXIDE 25.8 MMOL/L (24-32); TOTAL PROTEIN 7.9 G/DL (6.4-8.2); eGFR 79 ML/MIN
[2017-09-07] MEDS ORDERED: prazosin 1mg capsule PO SCH (21:00)
[2017-09-07] MEDS ORDERED: OLANZapine 5mg rapidly disint. tablet PO SCH (21:00)
[2017-09-07] MEDS ORDERED: traZODone 50mg tablet PO SCH (21:00)
[2017-09-08] MEDS ORDERED: PALIPERIDONE 3 MG TAB.ER.24 PO SCH ×2 (01:54→08:00)
[2017-09-08 07:09] LABS: CLARITY,URINE CLEAR (Clear); GLUCOSE, URINE NEGATIVE (Neg); KETONES,URINE 40 mg/dl (Neg); LEUKOCYTE ESTERASE ,URINE NEGATIVE (Neg); NITRITES, URINE NEGATIVE (Neg); OCCULT BLOOD,URINE NEGATIVE (Neg); PROTEIN,URINE TRACE mg/dl (Neg); UROBILINOGEN,URINE 0.2 E.U/dL (0.2-1.0)
[2017-09-08 07:11] LABS: COLOR,URINE AMBER (Yellow); UA COLLECTION TYPE CLN CATCH MIDSTREAM
[2017-09-08 07:14] LABS: BACTERIA,URINE FEW /HPF (Neg); RBC,URINE NONE SEEN /HPF (0-2); WBC,URINE 0-4 /HPF (0-4)
[2017-09-08 07:15] LABS: COARSE GRANULAR CAST 0-3 /LPF (NEGATIVE); MUCUS STRANDS MANY /LPF (Neg); SQUAMOUS EPITHELIAL CELL,UR FEW /LPF (FEW)
[2017-09-08] MEDS ORDERED: duloxetine 30mg CAPSULE.DR PO SCH (08:00)
[2017-09-08] MEDS ORDERED: nicotine 21mg patch - 24 hr TD SCH (08:00)
[2017-09-08 12:59] VITALS: BP 116/72
== END 2017-09-08 12:50 ==
LOC: ER 15:37
DX: R44.1 Visual hallucinations (principal); R45.851 Suicidal ideations; F32.9 Major depressive disorder, single episode, unspecified; F41.9 Anxiety disorder, unspecified; F12.90 Cannabis use, unspecified, uncomplicated; F15.90 Other stimulant use, unspecified, uncomplicated; Z56.0 Unemployment, unspecified; Z88.8 Allergy status to other drugs, medicaments and biological substances; Z79.899 Other long term (current) drug therapy
CPT/HCPCS: 36415; 80053; 80305; 80320; 81001; 85025; 99285

== ENCOUNTER 2017-09-08 11:00 | Inpatient (IN) | payer MEDICARE, MEDICAID ==
[~2017-09-08] VITALS: Ht 170.2 cm; Wt 82.4 kg
[~2017-09-08 11:00] MED LIST changes: -COL100C PO; +DULO-31 PO; +NICO-687 TOP; +OLAN5TAB5 PO; +PRAZ2CAP2 PO
[2017-09-08] MEDS ORDERED: acetaminophen 325mg tablet PO PRN (13:00)
[2017-09-08] MEDS ORDERED: mag hydrox/Alum hydrox/simeth 30ml oral suspension PO PRN (13:00)
[2017-09-08] MEDS ORDERED: magnesium hydroxide 30ml (MOM) UD suspension PO PRN (13:00)
[2017-09-08 14:29] VITALS: BP 120/82
[2017-09-08] MEDS ORDERED: hydrOXYzine 25 MG tablet PO STA (16:16)
[2017-09-08] MEDS ORDERED: OLANZapine 2.5MG tablet PO STA (16:16)
[2017-09-08] MEDS ORDERED: duloxetine 20mg capsule.DR PO STA (16:16)
[2017-09-08] MEDS ORDERED: duloxetine 30mg CAPSULE.DR PO STA (16:24)
[2017-09-08 17:38] LABS: BASOPHILS % (AUTO) 0.5 % (0-1); EOSINOPHILS # (AUTO) 0.3 X10'3 (0-0.9); EOSINOPHILS % (AUTO) 3.3 % (0-6); HEMATOCRIT 46.1 % (42.0-52.0); HEMOGLOBIN 15.8 g/dl (14.0-17.9); LYMPHOCYTES % (AUTO) 25.9 % (21-51); MEAN CORPUSCULAR HEMOGLOBIN 31.9 PG (27.0-31.0); MEAN CORPUSCULAR HGB CONC 34.3 % (33.0-36.5); MEAN CORPUSCULAR VOLUME 92.9 FL (78-98); MEAN PLATELET VOLUME 8.6 FL (7.4-10.4); MONOCYTES # (AUTO) 0.7 X10'3 (0-0.9); NEUTROPHILS # (AUTO) 4.8 X10'3 (1.8-7.7); NEUTROPHILS % (AUTO) 61.3 % (42-75); PLATELET COUNT 224 X10'3 (140-440); RED BLOOD COUNT 4.96 X10'6 (4.70-6.10); RED CELL DISTRIBUTION WIDTH 13.6 % (11.5-14.5); WHITE BLOOD COUNT 7.8 X10'3 (4.5-11.0)
[2017-09-08 17:53] LABS: ALANINE AMINOTRANSFERASE 56 U/L (12-78); ALBUMIN 3.7 G/DL (3.4-5.0); ALBUMIN/GLOBULIN RATIO 1.1 (1.1-1.5); ALKALINE PHOSPHATASE 93 IU/L (46-116); ANION GAP 4 (8-16); ASPARTATE AMINO TRANSFERASE 63 U/L (10-37); BILIRUBIN,TOTAL 0.5 MG/DL (0.1-1.0); BLOOD UREA NITROGEN 19 MG/DL (7-18); BUN/CREATININE RATIO 17.9 (5.4-32.0); CALCIUM 9.2 MG/DL (8.5-10.1); CHLORIDE 102 MMOL/L (99-107); CREATININE 1.06 MG/DL (0.60-1.10); GLUCOSE 95 MG/DL (70-104); SODIUM 137 MMOL/L (135-145); TOTAL CARBON DIOXIDE 30.9 MMOL/L (24-32); TOTAL PROTEIN 7.1 G/DL (6.4-8.2); eGFR 85 ML/MIN
[2017-09-08 17:55] LABS: CHOLESTEROL 149 MG/DL (0-200); HDL CHOLESTEROL 50 MG/DL (35-60); LDL CHOLESTEROL 87 MG/DL (50-100); TRIGLYCERIDES 71 MG/DL (20-135)
[2017-09-08 19:00] VITALS: BP 124/78
[2017-09-08] MEDS: traZODone 50mg tablet PO PRN (20:53)
[2017-09-08] MEDS: prazosin 1mg capsule PO SCH (20:53)
[2017-09-08] MEDS: OLANZapine 2.5MG tablet PO SCH (20:54)
[2017-09-08] MEDS: hydrOXYzine 25 MG tablet PO SCH (20:54)
[2017-09-09 08:00] VITALS: BP 123/70
[2017-09-09] MEDS: duloxetine 30mg CAPSULE.DR PO SCH (08:17)
[2017-09-09] MEDS: hydrOXYzine 25 MG tablet PO SCH ×2 (08:17→17:50)
[2017-09-09] MEDS: OLANZapine 2.5MG tablet PO SCH ×2 (08:18→20:48)
[2017-09-09] MEDS: nicotine 21mg patch - 24 hr TD SCH (08:18)
[2017-09-09 19:52] VITALS: BP 127/72
[2017-09-09] MEDS: prazosin 1mg capsule PO SCH (20:48)
[2017-09-09] MEDS: traZODone 50mg tablet PO PRN (20:48)
[2017-09-10 08:00] VITALS: BP 120/74
[2017-09-10] MEDS: nicotine 21mg patch - 24 hr TD SCH (08:36)
[2017-09-10] MEDS: duloxetine 30mg CAPSULE.DR PO SCH (08:36)
[2017-09-10] MEDS: OLANZapine 2.5MG tablet PO SCH ×2 (08:36→21:15)
[2017-09-10] MEDS: hydrOXYzine 25 MG tablet PO SCH ×2 (13:10→17:13)
[2017-09-10 20:00] VITALS: BP 119/17
[2017-09-10] MEDS: prazosin 1mg capsule PO SCH (21:15)
[2017-09-11] MEDS: duloxetine 30mg CAPSULE.DR PO SCH (07:45)
[2017-09-11] MEDS: OLANZapine 2.5MG tablet PO SCH ×2 (07:45→20:49)
[2017-09-11] MEDS: nicotine 21mg patch - 24 hr TD SCH (07:46)
[2017-09-11 08:00] VITALS: BP 114/78
[2017-09-11] MEDS: hydrOXYzine 25 MG tablet PO SCH ×2 (12:59→17:45)
[2017-09-11 20:00] VITALS: BP 130/68
[2017-09-11] MEDS: prazosin 1mg capsule PO SCH (20:48)
[2017-09-11] MEDS: traZODone 50mg tablet PO PRN (20:49)
[2017-09-12 08:00] VITALS: BP 113/74
[2017-09-12] MEDS: duloxetine 30mg CAPSULE.DR PO SCH (08:37)
[2017-09-12] MEDS: nicotine 21mg patch - 24 hr TD SCH (08:38)
[2017-09-12] MEDS: OLANZapine 2.5MG tablet PO SCH ×3 (08:38→21:31)
[2017-09-12] MEDS: hydrOXYzine 25 MG tablet PO SCH ×2 (12:35→17:17)
[2017-09-12 20:59] VITALS: BP 136/72
[2017-09-12] MEDS: prazosin 1mg capsule PO SCH (21:30)
[2017-09-12] MEDS: traZODone 50mg tablet PO PRN (21:31)
[2017-09-12] MEDS: hydrOXYzine 25 MG tablet PO PRN (21:32)
[2017-09-13 08:00] VITALS: BP 110/69
[2017-09-13] MEDS: nicotine 21mg patch - 24 hr TD SCH (08:12)
[2017-09-13] MEDS: OLANZapine 2.5MG tablet PO SCH ×3 (08:12→20:30)
[2017-09-13] MEDS: duloxetine 30mg CAPSULE.DR PO SCH (08:12)
[2017-09-13] MEDS: hydrOXYzine 25 MG tablet PO SCH ×2 (12:47→17:29)
[2017-09-13 20:00] VITALS: BP 121/79
[2017-09-13] MEDS: prazosin 1mg capsule PO SCH (20:29)
[2017-09-13] MEDS: hydrOXYzine 25 MG tablet PO PRN (20:30)
[2017-09-13] MEDS: traZODone 50mg tablet PO PRN (20:30)
[2017-09-14 08:00] VITALS: BP 108/75
[2017-09-14] MEDS: duloxetine 30mg CAPSULE.DR PO SCH (08:16)
[2017-09-14] MEDS: OLANZapine 2.5MG tablet PO SCH ×3 (08:16→20:38)
[2017-09-14] MEDS: nicotine 21mg patch - 24 hr TD SCH (08:18)
[2017-09-14] MEDS: hydrOXYzine 25 MG tablet PO SCH ×2 (12:29→17:48)
[2017-09-14 19:00] VITALS: BP 123/81
[2017-09-14] MEDS: prazosin 1mg capsule PO SCH (20:37)
[2017-09-14] MEDS: traZODone 50mg tablet PO PRN (20:38)
[2017-09-15] MEDS: nicotine 21mg patch - 24 hr TD SCH (07:33)
[2017-09-15] MEDS: OLANZapine 2.5MG tablet PO SCH ×3 (07:34→21:16)
[2017-09-15] MEDS: duloxetine 30mg CAPSULE.DR PO SCH (07:34)
[2017-09-15 08:00] VITALS: BP 114/70
[2017-09-15] MEDS: hydrOXYzine 25 MG tablet PO SCH ×2 (13:03→17:39)
[2017-09-15 19:00] VITALS: BP 123/75
[2017-09-15] MEDS: prazosin 1mg capsule PO SCH (21:16)
[2017-09-15] MEDS: traZODone 50mg tablet PO PRN (21:16)
[2017-09-16 08:00] VITALS: BP 114/72
[2017-09-16] MEDS: duloxetine 30mg CAPSULE.DR PO SCH (08:04)
[2017-09-16] MEDS: OLANZapine 2.5MG tablet PO SCH ×3 (08:04→21:08)
[2017-09-16] MEDS: nicotine 21mg patch - 24 hr TD SCH (08:04)
[2017-09-16] MEDS: hydrOXYzine 25 MG tablet PO SCH ×2 (14:51→18:05)
[2017-09-16 20:27] VITALS: BP 124/71
[2017-09-16] MEDS: traZODone 50mg tablet PO PRN (21:06)
[2017-09-16] MEDS: prazosin 1mg capsule PO SCH (21:06)
[2017-09-17 08:00] VITALS: BP 108/65
[2017-09-17] MEDS: duloxetine 30mg CAPSULE.DR PO SCH (08:07)
[2017-09-17] MEDS: nicotine 21mg patch - 24 hr TD SCH (08:07)
[2017-09-17] MEDS: OLANZapine 2.5MG tablet PO SCH ×3 (08:07→21:13)
[2017-09-17] MEDS: hydrOXYzine 25 MG tablet PO SCH ×2 (13:33→17:34)
[2017-09-17 20:00] VITALS: BP 124/78
[2017-09-17] MEDS: traZODone 50mg tablet PO PRN (21:13)
[2017-09-17] MEDS: prazosin 1mg capsule PO SCH (21:15)
[2017-09-18 08:00] VITALS: BP 112/67
[2017-09-18] MEDS: OLANZapine 2.5MG tablet PO SCH ×3 (08:07→21:18)
[2017-09-18] MEDS: duloxetine 30mg CAPSULE.DR PO SCH (08:07)
[2017-09-18] MEDS: nicotine 21mg patch - 24 hr TD SCH (08:08)
[2017-09-18] MEDS: hydrOXYzine 25 MG tablet PO SCH ×2 (13:27→17:44)
[2017-09-18 20:00] VITALS: BP 124/70
[2017-09-18] MEDS: prazosin 1mg capsule PO SCH (21:17)
[2017-09-19 08:00] VITALS: BP 122/74
[2017-09-19] MEDS: OLANZapine 2.5MG tablet PO SCH ×2 (08:01→12:42)
[2017-09-19] MEDS: duloxetine 30mg CAPSULE.DR PO SCH (08:01)
[2017-09-19] MEDS: nicotine 21mg patch - 24 hr TD SCH (08:01)
[2017-09-19] MEDS: hydrOXYzine 25 MG tablet PO SCH ×2 (12:42→17:53)
[2017-09-19 20:00] VITALS: BP 121/79
[2017-09-19] MEDS: prazosin 1mg capsule PO SCH (21:07)
[2017-09-19] MEDS: traZODone 50mg tablet PO PRN (21:08)
[2017-09-19] MEDS: OLANZapine 5mg rapidly disint. tablet PO SCH (21:08)
[2017-09-20 08:00] VITALS: BP 122/80
[2017-09-20] MEDS: OLANZapine 2.5MG tablet PO SCH ×2 (08:11→12:52)
[2017-09-20] MEDS: duloxetine 30mg CAPSULE.DR PO SCH (08:12)
[2017-09-20] MEDS: nicotine 21mg patch - 24 hr TD SCH (08:15)
[2017-09-20] MEDS: hydrOXYzine 25 MG tablet PO SCH ×2 (12:53→17:56)
[2017-09-20 20:00] VITALS: BP 123/75
[2017-09-20] MEDS: OLANZapine 5mg rapidly disint. tablet PO SCH (20:40)
[2017-09-20] MEDS: traZODone 50mg tablet PO PRN (20:40)
[2017-09-20] MEDS: prazosin 1mg capsule PO SCH (20:40)
[2017-09-21 08:00] VITALS: BP 99/58
[2017-09-21] MEDS: duloxetine 30mg CAPSULE.DR PO SCH (08:13)
[2017-09-21] MEDS: OLANZapine 2.5MG tablet PO SCH ×2 (08:14→12:47)
[2017-09-21] MEDS: nicotine 21mg patch - 24 hr TD SCH (08:14)
[2017-09-21] MEDS: hydrOXYzine 25 MG tablet PO SCH ×3 (12:47→21:37)
[2017-09-21 20:14] VITALS: BP 125/85
[2017-09-21] MEDS: prazosin 1mg capsule PO SCH (20:16)
[2017-09-21] MEDS: OLANZapine 5mg rapidly disint. tablet PO SCH (20:17)
[2017-09-21] MEDS: traZODone 50mg tablet PO PRN (20:17)
[2017-09-22] MEDS: lamoTRIgine 25mg tablet PO SCH (07:46)
[2017-09-22] MEDS: duloxetine 30mg CAPSULE.DR PO SCH (07:46)
[2017-09-22] MEDS: nicotine 21mg patch - 24 hr TD SCH (07:46)
[2017-09-22] MEDS: OLANZapine 2.5MG tablet PO SCH ×2 (07:47→13:28)
[2017-09-22 08:00] VITALS: BP 157/72
[2017-09-22] MEDS: hydrOXYzine 25 MG tablet PO PRN (13:30)
[2017-09-22] MEDS: hydrOXYzine 25 MG tablet PO SCH (17:54)
[2017-09-22 19:32] VITALS: BP 122/72
[2017-09-22] MEDS: prazosin 1mg capsule PO SCH (20:30)
[2017-09-22] MEDS: traZODone 50mg tablet PO PRN (20:30)
[2017-09-22] MEDS: OLANZapine 5mg rapidly disint. tablet PO SCH (20:30)
[2017-09-23] MEDS: lamoTRIgine 25mg tablet PO SCH (07:43)
[2017-09-23] MEDS: nicotine 21mg patch - 24 hr TD SCH (07:43)
[2017-09-23] MEDS: OLANZapine 2.5MG tablet PO SCH ×2 (07:43→12:52)
[2017-09-23] MEDS: duloxetine 30mg CAPSULE.DR PO SCH (07:43)
[2017-09-23 08:00] VITALS: BP 128/77
[2017-09-23] MEDS: hydrOXYzine 25 MG tablet PO SCH ×2 (12:52→17:03)
[2017-09-23 20:08] VITALS: BP_SYST 125
[2017-09-23] MEDS: traZODone 50mg tablet PO PRN (20:59)
[2017-09-23] MEDS: OLANZapine 5mg rapidly disint. tablet PO SCH (20:59)
[2017-09-23] MEDS: prazosin 1mg capsule PO SCH (20:59)
[2017-09-24 08:00] VITALS: BP 124/87
[2017-09-24] MEDS: OLANZapine 2.5MG tablet PO SCH ×2 (08:40→12:21)
[2017-09-24] MEDS: lamoTRIgine 25mg tablet PO SCH (08:40)
[2017-09-24] MEDS: duloxetine 30mg CAPSULE.DR PO SCH (08:40)
[2017-09-24] MEDS: nicotine 21mg patch - 24 hr TD SCH (08:46)
[2017-09-24] MEDS: hydrOXYzine 25 MG tablet PO SCH ×2 (12:21→17:34)
[2017-09-24 20:14] VITALS: BP 120/76
[2017-09-24] MEDS: prazosin 1mg capsule PO SCH (20:53)
[2017-09-24] MEDS: OLANZapine 5mg rapidly disint. tablet PO SCH (20:53)
[2017-09-24] MEDS: traZODone 50mg tablet PO PRN (20:53)
[2017-09-25] MEDS: duloxetine 30mg CAPSULE.DR PO SCH (07:34)
[2017-09-25] MEDS: nicotine 21mg patch - 24 hr TD SCH (07:34)
[2017-09-25] MEDS: OLANZapine 2.5MG tablet PO SCH ×2 (07:34→13:41)
[2017-09-25] MEDS: lamoTRIgine 25mg tablet PO SCH (07:35)
[2017-09-25] MEDS: hydrOXYzine 25 MG tablet PO PRN ×2 (07:35→21:53)
[2017-09-25 08:00] VITALS: BP 135/87
[2017-09-25] MEDS: hydrOXYzine 25 MG tablet PO SCH ×2 (13:42→17:58)
[2017-09-25 20:03] VITALS: BP 126/76
[2017-09-25] MEDS: prazosin 1mg capsule PO SCH (21:31)
[2017-09-25] MEDS: traZODone 50mg tablet PO PRN (21:31)
[2017-09-25] MEDS: OLANZapine 5mg rapidly disint. tablet PO SCH (21:31)
[2017-09-26] MEDS: duloxetine 30mg CAPSULE.DR PO SCH (08:07)
[2017-09-26] MEDS: OLANZapine 2.5MG tablet PO SCH ×2 (08:07→13:06)
[2017-09-26] MEDS: lamoTRIgine 25mg tablet PO SCH (08:07)
[2017-09-26] MEDS ORDERED: NICO-687 TD (08:09)
[2017-09-26] MEDS ORDERED: PRAZ1CAP5 PO (08:09)
[2017-09-26] MEDS ORDERED: HYDR-3686 PO (08:09)
[2017-09-26] MEDS ORDERED: DULO30CA51 PO (08:09)
[2017-09-26] MEDS ORDERED: OLAN15TA17 PO (08:09)
[2017-09-26] MEDS ORDERED: TRAZ-143 PO (08:09)
[2017-09-26] MEDS ORDERED: LAMO25TA PO (08:09)
[2017-09-26] MEDS ORDERED: OLAN7.5T9 PO (08:09)
[2017-09-26] MEDS: nicotine 21mg patch - 24 hr TD SCH (08:10)
[2017-09-26 08:15] VITALS: BP 123/86
[2017-09-26] MEDS: hydrOXYzine 25 MG tablet PO SCH (13:06)
== END 2017-09-26 13:40 | disposition home or self-care (01) | DRG 885 ==
LOC: ADULT MH 11:00
PROVIDERS: ADMIT Psychiatry & Neurology Psychiatry; ATTEND Psychiatry & Neurology Psychiatry
DX: F20.0 Paranoid schizophrenia (principal); R45.851 Suicidal ideations; F17.210 Nicotine dependence, cigarettes, uncomplicated; R79.89 Other specified abnormal findings of blood chemistry; F41.9 Anxiety disorder, unspecified; F90.9 Attention-deficit hyperactivity disorder, unspecified type; F15.10 Other stimulant abuse, uncomplicated; D72.829 Elevated white blood cell count, unspecified; Z88.8 Allergy status to other drugs, medicaments and biological substances; Z79.899 Other long term (current) drug therapy; Z91.5 Personal history of self-harm; Z81.8 Family history of other mental and behavioral disorders; Z71.6 Tobacco abuse counseling; Z71.51 Drug abuse counseling and surveillance of drug abuser
CPT/HCPCS: 36415; 80053; 80061; 83036; 85025; 87070; 99285; Q0177

== ENCOUNTER 2017-12-01 20:45 | Emergency (ER) | payer MEDICARE, MEDICAID ==
[~2017-12-01] VITALS: Ht 170.2 cm; Wt 68.0 kg
[~2017-12-01 20:45] MED LIST changes: -DULO-31 PO; +LAMO25TA PO; -NICO-687 TOP; +OLAN15TA17 PO; -OLAN5TAB5 PO; +OLAN7.5T9 PO; -PALI6TAB6 PO; -PRAZ2CAP2 PO; -TRAZ-143 PO; +TRAZ-218 PO
[2017-12-01 22:09] LABS: BASOPHILS % (AUTO) 0.3 % (0-1); EOSINOPHILS # (AUTO) 0.3 X10'3 (0-0.9); EOSINOPHILS % (AUTO) 3.9 % (0-6); HEMATOCRIT 46.6 % (42.0-52.0); HEMOGLOBIN 15.8 g/dl (14.0-17.9); LYMPHOCYTES % (AUTO) 24.1 % (21-51); MEAN CORPUSCULAR HGB CONC 33.8 % (33.0-36.5); MEAN CORPUSCULAR VOLUME 88.7 FL (78-98); MEAN PLATELET VOLUME 9.2 FL (7.4-10.4); MONOCYTES # (AUTO) 0.7 X10'3 (0-0.9); MONOCYTES % (AUTO) 8.4 % (2-12); NEUTROPHILS # (AUTO) 5.4 X10'3 (1.8-7.7); NEUTROPHILS % (AUTO) 63.3 % (42-75); PLATELET COUNT 239 X10'3 (140-440); RED BLOOD COUNT 5.25 X10'6 (4.70-6.10); RED CELL DISTRIBUTION WIDTH 12.1 % (11.5-14.5); WHITE BLOOD COUNT 8.4 X10'3 (4.5-11.0)
[2017-12-01 22:11] LABS: ALANINE AMINOTRANSFERASE 28 U/L (12-78); ALBUMIN 3.8 G/DL (3.4-5.0); ALBUMIN/GLOBULIN RATIO 1.2 (1.1-1.5); ALKALINE PHOSPHATASE 84 IU/L (46-116); ANION GAP 10 (8-16); ASPARTATE AMINO TRANSFERASE 34 U/L (10-37); BILIRUBIN,TOTAL 0.7 MG/DL (0.1-1.0); BLOOD UREA NITROGEN 15 MG/DL (7-18); CALCIUM 8.9 MG/DL (8.5-10.1); CHLORIDE 102 MMOL/L (99-107); CREATININE 0.94 MG/DL (0.60-1.10); GLUCOSE 91 MG/DL (70-104); POTASSIUM 3.7 MMOL/L (3.5-5.1); SODIUM 139 MMOL/L (135-145); TOTAL CARBON DIOXIDE 26.8 MMOL/L (24-32); eGFR > 90 ML/MIN
[2017-12-01 22:24] LABS: ETHANOL < 0.010 GM/DL (0.0-0.010)
[2017-12-02 02:50] LABS: CLARITY,URINE CLEAR (Clear); GLUCOSE, URINE NEGATIVE (Neg); KETONES,URINE NEGATIVE (Neg); LEUKOCYTE ESTERASE ,URINE NEGATIVE (Neg); NITRITES, URINE NEGATIVE (Neg); OCCULT BLOOD,URINE NEGATIVE (Neg); PH,URINE 5.5 (4.8-8.0); PROTEIN,URINE NEGATIVE (Neg); UROBILINOGEN,URINE 0.2 E.U/dL (0.2-1.0)
[2017-12-02 02:58] LABS: COLOR,URINE AMBER (Yellow); UA COLLECTION TYPE CLN CATCH MIDSTREAM
[2017-12-02 03:03] LABS: URINE AMPHETAMINE SCREEN POSITIVE (Neg); URINE BARBITUATE SCREEN NEGATIVE (Neg); URINE BENZODIAZEPINES SCREEN NEGATIVE (Neg); URINE CANNABINOID SCREEN POSITIVE (Neg); URINE COCAINE SCREEN NEGATIVE (Neg); URINE METHADONE SCREEN POSITIVE (Neg); URINE OPIATE SCREEN NEGATIVE (Neg); URINE PHENCYCLIDINE SCREEN NEGATIVE (Neg)
[2017-12-02] MEDS: citalopram 20mg tablet PO SCH (15:47)
[2017-12-02] MEDS: olanzapine 10mg tablet PO SCH (18:00)
[2017-12-03] MEDS: citalopram 20mg tablet PO SCH (12:53)
[2017-12-03] MEDS: olanzapine 10mg tablet PO SCH (17:47)
[2017-12-04] MEDS: citalopram 20mg tablet PO SCH (12:23)
[2017-12-04] MEDS: olanzapine 10mg tablet PO SCH (18:00)
[2017-12-05] MEDS: LORazepam 2 mg/ml vial IM PRN (11:15)
[2017-12-05] MEDS: citalopram 20mg tablet PO SCH (12:19)
[2017-12-05] MEDS: olanzapine 10mg tablet PO SCH (19:09)
[2017-12-06] MEDS: citalopram 20mg tablet PO SCH (12:17)
[2017-12-06] MEDS: LORazepam 2 mg/ml vial IM PRN (13:12)
[2017-12-06 16:50] VITALS: BP 120/76
== END 2017-12-06 16:45 ==
LOC: ER 20:46
DX: F79 Unspecified intellectual disabilities (principal); F43.10 Post-traumatic stress disorder, unspecified; R45.850 Homicidal ideations; F12.10 Cannabis abuse, uncomplicated; F15.10 Other stimulant abuse, uncomplicated; F11.90 Opioid use, unspecified, uncomplicated; F41.9 Anxiety disorder, unspecified; F20.9 Schizophrenia, unspecified; Z56.0 Unemployment, unspecified; Z88.8 Allergy status to other drugs, medicaments and biological substances; Z79.899 Other long term (current) drug therapy
CPT/HCPCS: 36415; 80053; 80305; 80320; 81003; 84443; 85025; 96372; 99285; J2060; J3490

== ENCOUNTER 2017-12-06 15:06 | Inpatient (IN) | payer MEDICARE, MEDICAID ==
[~2017-12-06] VITALS: Ht 170.2 cm; Wt 77.5 kg
[2017-12-06] MEDS ORDERED: magnesium hydroxide 30ml (MOM) UD suspension PO PRN (16:35)
[2017-12-06] MEDS ORDERED: acetaminophen 325mg tablet PO PRN ×2 (16:35)
[2017-12-06] MEDS ORDERED: mag hydrox/Alum hydrox/simeth 30ml oral suspension PO PRN (16:35)
[2017-12-06] MEDS: nicotine 21mg patch - 24 hr TD SCH (17:10)
[2017-12-06 18:02] VITALS: BP 126/79
[2017-12-06 19:00] VITALS: BP 115/77
[2017-12-06] MEDS: prazosin 1mg capsule PO SCH (21:15)
[2017-12-06] MEDS: OLANZapine 2.5MG tablet PO SCH (21:15)
[2017-12-07] MEDS: nicotine 21mg patch - 24 hr TD SCH ×2 (07:06→07:27)
[2017-12-07] MEDS: lamoTRIgine 25mg tablet PO SCH (07:26)
[2017-12-07] MEDS: OLANZapine 2.5MG tablet PO SCH ×2 (07:26→20:57)
[2017-12-07] MEDS: duloxetine 30mg CAPSULE.DR PO SCH (07:27)
[2017-12-07 08:40] LABS: CHOL/HDL RATIO 3.9 (0.00-4.99); CHOLESTEROL 138 MG/DL (0-200); HDL CHOLESTEROL 35 MG/DL (35-60); LDL CHOLESTEROL 90 MG/DL (50-100); TRIGLYCERIDES 72 MG/DL (20-135)
[2017-12-07] MEDS: hydrOXYzine 25 MG tablet PO PRN (14:51)
[2017-12-07 19:00] VITALS: BP 109/64
[2017-12-07] MEDS: prazosin 1mg capsule PO SCH (20:57)
[2017-12-07] MEDS ORDERED: bisacodyl 5mg tablet.DR PO PRN (21:05)
[2017-12-08] MEDS: nicotine 21mg patch - 24 hr TD SCH ×2 (08:00→08:27)
[2017-12-08] MEDS: OLANZapine 2.5MG tablet PO SCH ×2 (08:27→20:36)
[2017-12-08] MEDS: duloxetine 30mg CAPSULE.DR PO SCH (08:27)
[2017-12-08] MEDS: lamoTRIgine 25mg tablet PO SCH (08:28)
[2017-12-08 19:00] VITALS: BP 124/79
[2017-12-08] MEDS: prazosin 1mg capsule PO SCH (20:33)
[2017-12-08] MEDS: hydrOXYzine 25 MG tablet PO PRN (20:37)
[2017-12-09 08:00] VITALS: BP 109/57
[2017-12-09] MEDS: lamoTRIgine 25mg tablet PO SCH (08:33)
[2017-12-09] MEDS: duloxetine 30mg CAPSULE.DR PO SCH (08:33)
[2017-12-09] MEDS: OLANZapine 2.5MG tablet PO SCH ×2 (08:34→21:02)
[2017-12-09] MEDS: nicotine 21mg patch - 24 hr TD SCH (08:36)
[2017-12-09] MEDS: hydrOXYzine 25 MG tablet PO PRN (20:59)
[2017-12-09] MEDS: prazosin 1mg capsule PO SCH (21:02)
[2017-12-10] MEDS: lamoTRIgine 25mg tablet PO SCH (08:02)
[2017-12-10] MEDS: OLANZapine 2.5MG tablet PO SCH ×2 (08:02→20:41)
[2017-12-10] MEDS: duloxetine 30mg CAPSULE.DR PO SCH (08:02)
[2017-12-10] MEDS: nicotine 21mg patch - 24 hr TD SCH (08:03)
[2017-12-10] MEDS: hydrOXYzine 25 MG tablet PO PRN ×2 (11:56→20:40)
[2017-12-10] MEDS: prazosin 1mg capsule PO SCH (20:41)
[2017-12-10 22:22] VITALS: BP 122/79
[2017-12-11] MEDS: duloxetine 30mg CAPSULE.DR PO SCH (07:53)
[2017-12-11] MEDS: nicotine 21mg patch - 24 hr TD SCH (07:53)
[2017-12-11] MEDS: lamoTRIgine 25mg tablet PO SCH (07:53)
[2017-12-11] MEDS: OLANZapine 2.5MG tablet PO SCH ×2 (07:54→20:28)
[2017-12-11] MEDS: hydrOXYzine 25 MG tablet PO PRN (16:27)
[2017-12-11 20:10] VITALS: BP 114/75
[2017-12-11] MEDS: prazosin 1mg capsule PO SCH (20:28)
[2017-12-12] MEDS: duloxetine 30mg CAPSULE.DR PO SCH (07:57)
[2017-12-12] MEDS: nicotine 21mg patch - 24 hr TD SCH (07:57)
[2017-12-12] MEDS: OLANZapine 2.5MG tablet PO SCH ×2 (07:57→20:37)
[2017-12-12] MEDS: lamoTRIgine 25mg tablet PO SCH (07:58)
[2017-12-12] MEDS ORDERED: LAMO25TA PO (17:48)
[2017-12-12] MEDS ORDERED: OLAN10TA19 PO (17:48)
[2017-12-12] MEDS ORDERED: PRAZ1CAP5 PO (17:48)
[2017-12-12] MEDS ORDERED: HYDR50TA65 PO (17:48)
[2017-12-12] MEDS ORDERED: DULO30CA51 PO (17:48)
[2017-12-12] MEDS ORDERED: OLAN5TAB26 PO (17:48)
[2017-12-12] MEDS ORDERED: TRAZ-218 PO (17:48)
[2017-12-12 19:00] VITALS: BP 104/61
[2017-12-12] MEDS: prazosin 1mg capsule PO SCH (20:37)
[2017-12-12] MEDS: hydrOXYzine 25 MG tablet PO PRN (22:35)
[2017-12-13] MEDS: nicotine 21mg patch - 24 hr TD SCH (08:04)
[2017-12-13] MEDS: duloxetine 30mg CAPSULE.DR PO SCH (08:04)
[2017-12-13] MEDS: lamoTRIgine 25mg tablet PO SCH (08:05)
[2017-12-13] MEDS: OLANZapine 2.5MG tablet PO SCH (08:05)
[2017-12-13] MEDS: hydrOXYzine 25 MG tablet PO PRN (10:41)
== END 2017-12-13 12:21 | disposition short-term general hospital (02) | DRG 885 ==
LOC: ADULT MH 15:06
PROVIDERS: ADMIT Psychiatry & Neurology Psychiatry; ATTEND Psychiatry & Neurology Psychiatry
DX: F20.0 Paranoid schizophrenia (principal); F15.20 Other stimulant dependence, uncomplicated; R45.851 Suicidal ideations; F12.10 Cannabis abuse, uncomplicated; F11.10 Opioid abuse, uncomplicated; F17.210 Nicotine dependence, cigarettes, uncomplicated; F90.9 Attention-deficit hyperactivity disorder, unspecified type; F32.9 Major depressive disorder, single episode, unspecified; I10 Essential (primary) hypertension; Z59.0 Homelessness; Z88.8 Allergy status to other drugs, medicaments and biological substances; Z79.899 Other long term (current) drug therapy; Z86.14 Personal history of Methicillin resistant Staphylococcus aureus infection; Z81.8 Family history of other mental and behavioral disorders; Z71.6 Tobacco abuse counseling; Z71.51 Drug abuse counseling and surveillance of drug abuser
CPT/HCPCS: 36415; 80061; 87070; Q0177

== ENCOUNTER 2018-03-19 11:21 | Emergency (ER) | payer MEDICARE, MEDICAID ==
[~2018-03-19] VITALS: Ht 170.2 cm; Wt 231.8 kg
[~2018-03-19 11:21] MED LIST changes: -DULO30CA51 PO; -HYDR-3686 PO; +HYDR50TA65 PO; -LAMO25TA PO; -NICO-687 TD; +OLAN10TA19 PO; -OLAN15TA17 PO; +OLAN5TAB26 PO; -OLAN7.5T9 PO; -TRAZ-218 PO
[2018-03-19 12:08] VITALS: BP 110/79
[2018-03-19] MEDS ORDERED: CLIN300C85 PO (12:55)
== END 2018-03-19 13:03 | disposition home or self-care (01) ==
LOC: ER 11:22
DX: L03.314 Cellulitis of groin (principal); F12.90 Cannabis use, unspecified, uncomplicated; F15.90 Other stimulant use, unspecified, uncomplicated; F17.200 Nicotine dependence, unspecified, uncomplicated; Z56.0 Unemployment, unspecified; Z86.14 Personal history of Methicillin resistant Staphylococcus aureus infection; Z88.8 Allergy status to other drugs, medicaments and biological substances; Z79.899 Other long term (current) drug therapy
CPT/HCPCS: 99283

== ENCOUNTER 2018-05-02 15:16 | Emergency (ER) | payer MEDICARE, MEDICAID ==
[~2018-05-02] VITALS: Ht 170.2 cm; Wt 100.0 kg
[~2018-05-02 15:16] MED LIST changes: +CLIN-96 PO
[2018-05-02 15:51] LABS: BASOPHILS # (AUTO) 0.1 X10'3 (0-0.2); BASOPHILS % (AUTO) 0.7 % (0-1); EOSINOPHILS # (AUTO) 0.3 X10'3 (0-0.9); EOSINOPHILS % (AUTO) 3.5 % (0-6); HEMATOCRIT 48.7 % (42.0-52.0); HEMOGLOBIN 16.6 g/dl (14.0-17.9); LYMPHOCYTES # (AUTO) 1.9 X10'3 (1.1-4.8); MEAN CORPUSCULAR HEMOGLOBIN 29.7 PG (27.0-31.0); MEAN CORPUSCULAR HGB CONC 34.1 g/dL (33.0-36.5); MEAN CORPUSCULAR VOLUME 87.1 FL (78-98); MONOCYTES # (AUTO) 0.6 X10'3 (0-0.9); MONOCYTES % (AUTO) 7.3 % (2-12); NEUTROPHILS # (AUTO) 4.8 X10'3 (1.8-7.7); NEUTROPHILS % (AUTO) 63.5 % (42-75); PLATELET COUNT 258 X10'3 (140-440); RED CELL DISTRIBUTION WIDTH 13.2 % (11.5-14.5); WHITE BLOOD COUNT 7.6 X10'3 (4.5-11.0)
[2018-05-02 16:05] LABS: ALANINE AMINOTRANSFERASE 43 U/L (12-78); ALBUMIN/GLOBULIN RATIO 1.1 (1.1-1.5); ALKALINE PHOSPHATASE 93 IU/L (46-116); ANION GAP 8 (8-16); ASPARTATE AMINO TRANSFERASE 23 U/L (10-37); BILIRUBIN,TOTAL 0.3 MG/DL (0.1-1.0); BLOOD UREA NITROGEN 12 MG/DL (7-18); BUN/CREATININE RATIO 12.8 (5.4-32.0); CALCIUM 9.2 MG/DL (8.5-10.1); CHLORIDE 105 MMOL/L (99-107); CREATININE 0.94 MG/DL (0.60-1.10); GLUCOSE 84 MG/DL (70-104); POTASSIUM 4.2 MMOL/L (3.5-5.1); SODIUM 141 MMOL/L (135-145); TOTAL CARBON DIOXIDE 28.5 MMOL/L (24-32); TOTAL PROTEIN 7.6 G/DL (6.4-8.2); eGFR > 90 ML/MIN
[2018-05-02 16:15] LABS: ETHANOL < 0.010 GM/DL (0.0-0.010)
--- NOTE | 2018-05-02 16:34 | NUR ---
"IM OUT OF MEDICATIONS, THAT IM SUPPOSED TO BE TAKING" MEDS PRESCRIBED BY PROVIDER AT [facility]. OUT OF PRAZOSIN, TRADADONE, HYDROXYZINE: OUT OF FOR 3-4 DAYS BUT HAS ZYPREXA PATIENT HAD APPOINMENT WITH [facility] TODAY BUT STATES THAT " I WAS TOO DEPRESSED TO GET OUT OF BED" BUT HE "MADE HIMSELF GET UP, SHOWER, AND TOOK THE BUS TO [facility] AND THEY DROVE ME HERE"
--- NOTE | 2018-05-02 16:41 | NUR ---
PATIENT STATES THAT HIS LAST TIME HE SMOKED METH WAS LAST WEEK
--- NOTE | 2018-05-02 16:56 | NUR ---
HEALTHCARE PROF AWARE NO SITTER AVAILABLE FOR PATIENT. PATIENT DENIES SI/HI. PATIENT STATES THAT HE FEELS DE[PRESSED AND PATIENT APPEARS WITHDRAWN, SPEAKING IN A SOMEWHAT MONOTONE VOICE.
--- NOTE | 2018-05-02 17:00 | NUR ---
PATIENT PROVIDED SACK LUNCH: ATE 100%
--- NOTE | 2018-05-02 17:09 | NUR ---
TELEPHYCH INITIATED & MACHINE PLACED IN ROOM
--- NOTE | 2018-05-02 17:12 | NUR ---
PATIENT DENIES SI/HI
--- NOTE | 2018-05-02 17:37 | NUR ---
PATIENT STATES THAT HE LIVES WITH STEP MOTHER AND HIS SON
--- NOTE | 2018-05-02 17:39 | NUR ---
ASKED PATIENT WHAT HIS PLAN WAS FOR NOT RUNNING OUT OF HIS MEDICATIONS AGAIN: "HE STATED THAT "I WILL CALL [facility] A FEW DAYS BEFORE MY MEDICATIONS RUN"
[2018-05-02 17:40] LABS: CLARITY,URINE CLEAR (Clear); COLOR,URINE YELLOW (Yellow); GLUCOSE, URINE NEGATIVE (Neg); KETONES,URINE NEGATIVE (Neg); LEUKOCYTE ESTERASE ,URINE NEGATIVE (Neg); NITRITES, URINE NEGATIVE (Neg); OCCULT BLOOD,URINE NEGATIVE (Neg); PROTEIN,URINE NEGATIVE (Neg); UROBILINOGEN,URINE 0.2 E.U/dL (0.2-1.0)
[2018-05-02 17:48] LABS: UA COLLECTION TYPE CLN CATCH MIDSTREAM; URINE AMPHETAMINE SCREEN NEGATIVE (Neg); URINE BARBITUATE SCREEN NEGATIVE (Neg); URINE BENZODIAZEPINES SCREEN NEGATIVE (Neg); URINE CANNABINOID SCREEN POSITIVE (Neg); URINE COCAINE SCREEN NEGATIVE (Neg); URINE METHADONE SCREEN NEGATIVE (Neg); URINE OPIATE SCREEN NEGATIVE (Neg); URINE PHENCYCLIDINE SCREEN NEGATIVE (Neg)
--- NOTE | 2018-05-02 17:55 | NUR ---
SPOKE TO DR BRANDO COFFMAN
--- NOTE | 2018-05-02 17:58 | NUR ---
CORRECTION: PATIENT'S SON LIVES WITH HIS STEPMOM PATIENT LIVES IN A SOBER LIVING [facility] [place]
--- NOTE | 2018-05-02 18:43 | NUR ---
TELEPHYSCH FAX FROM SOC GIVEN TO RAYSHAWN BLANCA
--- NOTE | 2018-05-02 18:48 | NUR ---
PATIENT STATES THAT HE IS STILL HUNGRY AND REQUSTED ANOTHER SANDWHICH
--- NOTE | 2018-05-02 19:05 | NUR ---
ASKED RAYSHAWN BLANCA IF SHE WOULD LIKE THE MEDICATIONS ORDERED THAT SPECIALIST SENIOR BUSINESS MANAGER RECOMMENDED. RAYSHAWN BLANCA DID NOT
[2018-05-02] MEDS ORDERED: prazosin 1mg capsule PO SCH (19:10)
[2018-05-02] MEDS ORDERED: traZODone 50mg tablet PO SCH (19:10)
[2018-05-02] MEDS ORDERED: prazosin 1mg capsule PO ONE (19:10)
[2018-05-02] MEDS ORDERED: traZODone 50mg tablet PO ONE (19:10)
--- NOTE | 2018-05-02 19:26 | NUR ---
SOC RECOMMENDED DISCHARGE HOME AFTER PRAZOSIN AND TRAZADONE GIVEN HERE IN ER. PATIENT HAS APPOINTMENT WITH [facility] AT 10 AM TOMORROW. PATIENT LIVES IN A SOBER LIVING HOME ON [address] IN [facility]. PATIENT HAS SUPPORT THRU [facility] AND HAS A SPONSOR AND HIS STEPMOTHER WHO CARES FOR HIS 7 YEAR OLD SON. PATIENT ADMITS HAVING A RELAPSE AND SMOKING METH LAST WEEK, BUT STATES THAT HE HAS BEEN PREVIOUSLY OFF METH FOR OVER TWO MONTHS. PATIENT STATES THAT HE WILL GO TO HIS SUNDAY MEETING THAT HE ALWAYS GOES TO. THRUOUT OUR INTERACTIONS HE WAS SMILING FREQUENTLY. I AM FAMILIAR WITH [facility], I THINK HE LOOKS OVERALL THE BEST HE HAS EVER LOOKED. [facility] CALLED FOR PATIENT AT HOSPITAL EXPENSE. PATIENT APPEARS REZA IN A BETTER MOOD AND STATED SO HIMSELF. I HAVE CONVERSED WITH HIM WITH LOTS OF POSITIVE REINFORCEMENT. PATIENT AMBULATED OUT OF ER WNL.
[2018-05-02 19:35] VITALS: BP 128/68
== END 2018-05-02 19:45 | disposition home or self-care (01) ==
LOC: ER 15:16
DX: F32.9 Major depressive disorder, single episode, unspecified (principal); F41.9 Anxiety disorder, unspecified; F29 Unspecified psychosis not due to a substance or known physiological condition; F20.9 Schizophrenia, unspecified; F12.90 Cannabis use, unspecified, uncomplicated; F15.90 Other stimulant use, unspecified, uncomplicated; Z86.14 Personal history of Methicillin resistant Staphylococcus aureus infection; Z56.0 Unemployment, unspecified; Z88.8 Allergy status to other drugs, medicaments and biological substances; Z79.899 Other long term (current) drug therapy
CPT/HCPCS: 36415; 80053; 80305; 80320; 81003; 84443; 85025; 99284

== ENCOUNTER 2018-05-25 23:19 | Emergency (ER) | payer MEDICARE, MEDICAID ==
[~2018-05-25] VITALS: Ht 170.2 cm; Wt 100.0 kg
--- NOTE | 2018-05-25 23:37 | NUR ---
TELEPSYCH CONSULT INITIATED
[2018-05-25 23:53] LABS: BASOPHILS % (AUTO) 0.3 % (0-1); EOSINOPHILS # (AUTO) 0.2 X10'3 (0-0.9); EOSINOPHILS % (AUTO) 2.3 % (0-6); HEMATOCRIT 47.6 % (42.0-52.0); HEMOGLOBIN 16.6 g/dl (14.0-17.9); LYMPHOCYTES # (AUTO) 2.2 X10'3 (1.1-4.8); LYMPHOCYTES % (AUTO) 23.4 % (21-51); MEAN CORPUSCULAR HEMOGLOBIN 30.1 PG (27.0-31.0); MEAN CORPUSCULAR HGB CONC 34.9 g/dL (33.0-36.5); MEAN CORPUSCULAR VOLUME 86.1 FL (78-98); MEAN PLATELET VOLUME 8.6 FL (7.4-10.4); MONOCYTES # (AUTO) 0.8 X10'3 (0-0.9); MONOCYTES % (AUTO) 8.7 % (2-12); NEUTROPHILS % (AUTO) 65.3 % (42-75); PLATELET COUNT 248 X10'3 (140-440); RED BLOOD COUNT 5.53 X10'6 (4.70-6.10); RED CELL DISTRIBUTION WIDTH 13.2 % (11.5-14.5); WHITE BLOOD COUNT 9.2 X10'3 (4.5-11.0)
[2018-05-26 00:05] LABS: ALANINE AMINOTRANSFERASE 45 U/L (12-78); ALBUMIN 4.2 G/DL (3.4-5.0); ALBUMIN/GLOBULIN RATIO 1.3 (1.1-1.5); ALKALINE PHOSPHATASE 81 IU/L (46-116); ANION GAP 10 (8-16); ASPARTATE AMINO TRANSFERASE 24 U/L (10-37); BILIRUBIN,TOTAL 0.9 MG/DL (0.1-1.0); BLOOD UREA NITROGEN 17 MG/DL (7-18); BUN/CREATININE RATIO 13.6 (5.4-32.0); CALCIUM 9.6 MG/DL (8.5-10.1); CHLORIDE 101 MMOL/L (99-107); CREATININE 1.25 MG/DL (0.60-1.10); ETHANOL < 0.010 GM/DL (0.0-0.010); GLUCOSE 111 MG/DL (70-104); POTASSIUM 3.6 MMOL/L (3.5-5.1); SODIUM 138 MMOL/L (135-145); TOTAL CARBON DIOXIDE 27.5 MMOL/L (24-32); TOTAL PROTEIN 7.5 G/DL (6.4-8.2); eGFR 70 ML/MIN
[2018-05-26 00:41] LABS: URINE AMPHETAMINE SCREEN POSITIVE (Neg); URINE BARBITUATE SCREEN NEGATIVE (Neg); URINE BENZODIAZEPINES SCREEN NEGATIVE (Neg); URINE CANNABINOID SCREEN NEGATIVE (Neg); URINE COCAINE SCREEN NEGATIVE (Neg); URINE METHADONE SCREEN NEGATIVE (Neg); URINE OPIATE SCREEN NEGATIVE (Neg); URINE PHENCYCLIDINE SCREEN NEGATIVE (Neg)
--- NOTE | 2018-05-26 07:45 | NUR ---
Pt brought over from main ER by nurse, Angel. Pt current HR is 88. Pt ate and went back to sleep. He is currently laying on his back with his eyes closed. RR even and unlabored.
[2018-05-26] MEDS ORDERED: hydrOXYzine 25 MG tablet PO PRN (08:00)
--- NOTE | 2018-05-26 09:40 | NUR ---
Pt on his bed sleeping; RR even and unlabored. No s/s of distress.
--- NOTE | 2018-05-26 10:19 | NUR ---
Pt apears to be sleeping; eyes closed; RR even and unlabored. No s/s of distress.
--- NOTE | 2018-05-26 10:59 | NUR ---
Pt appears to be sleeping on his right side RR even and unlabored; no s/s of distress
--- NOTE | 2018-05-26 13:28 | NUR ---
Pt up sitting on the side of his bed. Pt when awake sits up then lays down then sits up then lays down. He is cooperative and follow directions.
--- NOTE | 2018-05-26 15:23 | NUR ---
Pt apears to be asleep; eyes closed, laying on right side, RR even and unlabored. No s/s of distress.
--- NOTE | 2018-05-26 17:12 | NUR ---
Pt continues to sleep; RR even and unlabored. No s/s of distress.
[2018-05-26 17:47] VITALS: BP 106/62
--- NOTE | 2018-05-26 19:18 | NUR ---
Rcvd report from Mary Ellen Parekh, assumed care, pt eating dinner at change of shift. Pt reports he is here because he is suicidal, reports hearing "an actual persons voice telling me I'm a coward, mamas boy, dont talk to these people." Pt states he is homicidal but 'Not towards anyone here, I just want to kill the pedro responsible, the one saying all these things to me." Pt is anxious, Can you give me something to help? Pt reports appetite is good, slept well last night
[2018-05-26] MEDS ORDERED: traZODone 50mg tablet PO SCH (20:00)
--- NOTE | 2018-05-26 20:31 | NUR ---
Barbara campos in [facility] - 05/26/18 at 2038 by LEDY Pt up to bathroom to bathroom to brush teeth.
[2018-05-26] MEDS ORDERED: OLANZapine 2.5MG tablet PO SCH (21:00)
[2018-05-26] MEDS ORDERED: prazosin 1mg capsule PO SCH (21:00)
[2018-05-26] MEDS ORDERED: PRAZ1CAP5 PO (23:07)
== END 2018-05-26 21:11 ==
LOC: ER 23:20
DX: F31.9 Bipolar disorder, unspecified (principal); F41.9 Anxiety disorder, unspecified; F20.9 Schizophrenia, unspecified; F12.90 Cannabis use, unspecified, uncomplicated; F15.90 Other stimulant use, unspecified, uncomplicated; Z56.0 Unemployment, unspecified; Z88.8 Allergy status to other drugs, medicaments and biological substances
CPT/HCPCS: 36415; 80053; 80305; 80320; 85025; 99285; Q0177

== ENCOUNTER 2018-05-26 19:40 | Inpatient (IN) | payer MEDICARE, MEDICAID ==
[~2018-05-26] VITALS: Ht 170.2 cm; Wt 96.5 kg
[~2018-05-26 19:40] MED LIST changes: -CLIN-96 PO
[2018-05-26 21:45] VITALS: BP 97/54
[2018-05-26] MEDS ORDERED: PRAZ1CAP5 PO (23:07)
[2018-05-27] MEDS: OLANZapine 2.5MG tablet PO SCH ×2 (00:19→20:32)
--- NOTE | 2018-05-27 02:36 | NUR ---
NURSING ADMISSION NOTE: Pt arrived on the unit on 05/26/2018 at 2130 via wheelchair with staff. Pt has a hx of depression, schizophrenia, bipolar, paranoia, and affective mood disorder. Pt also has a hx of substance abuse, he admits he has been using methamphetamine on and off. Pt is on a 5150 hold for DTS. He states he was staying at [facility] [employer] but he relapses on meth, and he got kicked out. He states he is feeling suicidal because "my ex girlfriend and her boyfriend are threatening to kill me, and I feel very unsafe, I am going to end up chopped into pieces." He tells chief writer he asked police to bring him to the hospital because he felt so unsafe. When asked the last time he had seen or spoke to his ex girlfriend or her boyfriend he replies, "about a year ago." He also claims that the male mentioned has been accusing him of being a child molester. Weather Forcaster asks patient how these individuals are threatening him if he has not seen or talked to them in a year, he replies, "well at the place I was living he was taking to me through a wooden fence and I can hear them through the fairchild." "No one believes me, they all think I am crazy but they really are trying to kill me." He mentions being able to hear them through telepathy and radiowaves. "I know you probably don't believe me but I know I am not just hearing things." He uddenyl yells "no!!!" to the empty seat beside him and says to chief writer, "I don't know how he is doing it, talking to me like this." "I would rather kill myself than let them kill me."
[2018-05-27 07:48] VITALS: BP 111/54
[2018-05-27] MEDS ORDERED: FLU VACC QUAD 2018(5 YR UP)/PF 60 MCG/0.5 ML SYRINGE IM ONE (10:00)
[2018-05-27] MEDS ORDERED: OLANZapine 2.5MG tablet PO ONE (12:50)
[2018-05-27] MEDS ORDERED: tuberculin, purif. prot. deriv. 5 units/0.1ml ID ONE (14:55)
--- NOTE | 2018-05-27 16:11 | NUR ---
Nursing Progress Note: Legal hold:5150 Client on involuntary status for DTS Report received from nurse Dai RN with use of SBAR Why are they here: Pt presented to the ER endorsing SI/HI. Pt was paranoid &delusional believing that people were trying to kill him. Pt has a had multiple past suicide attempts, he has a hx of Schizophrenia and polysubstance abuse. He was in a [facility] facility[facility] but was kicked out due to relapse on methamphetamines. Assessment What has happened this shift: Pt got up for breakfast but returned to his room immediately afterwards, remained in bed until morning group with covers up over his head framing his face. Pt stated he was trying to stay in his room and bed because he was having difficulty dealing with "all these thoughts." Pt continues to be paranoid, expressed fear for his life, wished to speak with a SW about contacting authorities about all the people who are out to get him, insists that it is real. Pt believes that his ex-girlfriend and her boyfriend want to kill him, he states that the boyfriend was outside of where he was living 2 to 3 days ago. Pt states that he is "depressed and stressed." He continues to endorse SI stating that "if I had a way, I might do it." Pt denies HI, but did state, "only to defend myself...it's real." Spoke with Dr Chahal who ordered Zyprexa 2.5 mg once given at 1300, he ordered a morning dose of Zyprexa 5 mg to start tomorrow, and stated that he would order Prazosin and add some prn meds. Gave PPD in left forearm at 1525. S/I, H/I: +SI/passive HI; "only to defend myself." A/VH: Pt denies though appears internally preoccupied Sleep: Pt reports that he did get some sleep last night, per noc shift, 6.25 hours ADL's:Independent Group attendance: Attended morning group Were meds taken:Yes, one time dose Zyprexa 2.5 mg Any med S/E: None noted or reported Mental Status Exam Appearance: Clean, dressed in scrubs Eye contact:Fair Behavior: Paranoid, mostly isolative to self and bed Speech:Clear, audible Mood: anxious, fearful Affect: hypervigilant, fearful Thought process: Racing Thought Content: Believes people are out to harm him, insists that it is real Cognition: A/O X 4 Insight: poor Judgment:poor Interventions PRN's used: approached this nurse just now to request anxiety medication, will administer hydroxyzine Therapeutic interventions: 1:1 assessment, therapeutic conversation, reassurance that pt is safe, medication administration, education, and monitoring, Q 15 minute safety checks. Restraints/seclusion/emergency medication: N/A Justification of Continued Inpatient Treatment: Pt is paranoid and delusional, he is endorsing SI and passive HI, he has Hx of multiple past suicide attempts, he is homeless. Pt needs crisis stabilization and medication adjustment in a safe, therapeutic environment.
[2018-05-27] MEDS: hydrOXYzine 25 MG tablet PO PRN (17:01)
[2018-05-27] MEDS: traZODone 50mg tablet PO SCH (20:35)
[2018-05-27 20:53] VITALS: BP 120/78
--- NOTE | 2018-05-28 01:07 | NUR ---
Nursing Progress Note: Legal hold:5150 Client on involuntary status for DTS Report received from nurse Kailey MORALES with use of SBAR Why are they here: Pt presented to the ER endorsing SI/HI. Pt was paranoid &delusional believing that people were trying to kill him. Pt has a had multiple past suicide attempts, he has a hx of Schizophrenia and polysubstance abuse. He [facility] but was kicked out due to relapse on methamphetamines. Assessment What has happened this shift: Pt lying in bed awake in dark room at start of shift. When asked how he was doing he replied "terrible" said he did not want to elaborate. He became angry "I have to tell the same story over and over." Reassured he did not have to talk about anything he did not want to. Pt went on to to say he believes that his ex-girlfriend and her boyfriend want to kill him. "No one here cares" Reassured that he was safe here he said "I want to be safe on the outside too." Pt requested to be told when it was time for snack. Came to group room for snack very little interactions with staff or other pts. Did request and took a shower. Took all HS meds. Went to sleep without difficulty sleeping at this time. S/I, H/I: +SI/passive HI; "only to defend myself." A/VH: Pt denies though appears internally preoccupied Sleep: sleeping at this time ADL's:Independent Group attendance: Came to group room for snack. Were meds taken:Yes Any med S/E: None noted or reported Mental Status Exam Appearance: Clean, dressed in scrubs Eye contact:Fair Behavior: Paranoid, mostly isolative to self and bed Speech:Clear, audible Mood: anxious, fearful Affect: hypervigilant, fearful Thought process: Racing Thought Content: Believes people are out to harm him, insists that it is real Cognition: A/O X 4 Insight: poor Judgment:poor Interventions PRN's used: none Therapeutic interventions: 1:1 assessment, therapeutic conversation, reassurance that pt is safe, medication administration, education, and monitoring, Q 15 minute safety checks. Restraints/seclusion/emergency medication: N/A Justification of Continued Inpatient Treatment: Pt is paranoid and delusional, he is endorsing SI and passive HI, he has Hx of multiple past suicide attempts, he is homeless. Pt needs crisis stabilization and medication adjustment in a safe, therapeutic environment.
[2018-05-28 07:53] VITALS: BP 103/60
[2018-05-28] MEDS: OLANZapine 5mg rapidly disint. tablet PO SCH (08:05)
--- NOTE | 2018-05-28 10:29 | NUR ---
Nursing Progress Note: Legal hold:5150 Client on involuntary status for DTS Report received from nurse Susan MORALES with use of SBAR Why are they here: Pt presented to the ER endorsing SI/HI. Pt was paranoid &delusional believing that people were trying to kill him. Pt has a had multiple past suicide attempts, he has a hx of Schizophrenia and polysubstance abuse. [facility] [employer] but was kicked out due to relapse on methamphetamines. Assessment What has happened this shift: Pt was encouraged to come out of his room for breakfast which he did, returned to room immediately afterwards, isolated to bed/self. Pt still presents as paranoid and on edge. When asked about depression, he replied, "yes, and everything else," rated depression and anxiety at 9/10, still endorsing SI with no plan, denies HI/VH, admitted to hearing some AH last night but not this am, would not elaborate on the voices. Pt was cooperative with am dose of Zydis 5 mg. S/I, H/I: +SI, denies HI A/VH: Pt reported AH last night, denied this am, denies VH, appears internally preoccupied. Sleep: Per noc shift report, pt slept 10 hours last night ADL's:Independent Group attendance: Pt may be too paranoid to attend groups today Were meds taken:Yes Any med S/E: None noted or reported Mental Status Exam Appearance: Clean, dressed in scrubs Eye contact:Fair Behavior: Paranoid,constricted, mostly isolative to self and bed Speech:Clear, audible Mood: irritable, anxious Affect: hypervigilant, on edge Thought process: Racing Thought Content: Believes people are out to harm him, insists that it is real Cognition: A/O X 4 Insight: poor Judgment:poor Interventions PRN's used: none so far this shift Therapeutic interventions: 1:1 assessment, therapeutic conversation, reassurance that pt is safe, medication administration, education, and monitoring, Q 15 minute safety checks. Restraints/seclusion/emergency medication: N/A Justification of Continued Inpatient Treatment: Pt is paranoid and delusional, he is endorsing SI, he has Hx of multiple past suicide attempts, he is homeless. Pt needs crisis stabilization and medication adjustment in a safe, therapeutic environment. Addendum: 05/28/18 at 1106 by Kailey Rosales RN (Lee) Dr Chahal decreased HS Zyprexa from 15 mg to 10 mg and added order for Prazosin 2 mg PO HS. Addendum: 05/28/18 at 1612 by Kailey Rosales RN (Lee) Pt approached this RN to ask for his anxiety med at 1535, went to get his Atarax 50 mg. Another nurse spoke with pt during that time period, asking about if he had been going to group and doing his artwork. Pt began speaking with the other nurse about how nothing is being done about the people who are out to get him, how his social media marketing analyst is not contacting the authorities. Other RN encouraged Alejandro to speak with his nurse, that it was my job to advocate for him. Pt became agitated, began pacing the unit rapidly, tore up some papers he had in his hand, verbalizing about how his social media marketing analyst wasn't helping him, "shes in on it!" and stating how nobody cares. Gave pt prn Atarax, spoke with John TABARES who was present at the nurses' station, he ordered Ativan 1 mg PO Q 6H prn agitation. SW spoke with pt, calmed him, reassured him to give it a couple days and then they would address contacting the authorities again. This RN reassured pt that he was safe here now. Administered Ativan 1 mg at 1558. Pt is stating that he wants to be conserved so that he can go to a board and care and be safe, rationalizes that he has had numerous psychiatric admissions so feels it is warranted.
[2018-05-28] MEDS: hydrOXYzine 25 MG tablet PO PRN (15:38)
[2018-05-28] MEDS: LORazepam 1 MG tablet PO PRN (15:58)
[2018-05-28 20:00] VITALS: BP 112/56
[2018-05-28] MEDS ORDERED: OLANZapine 2.5MG tablet PO SCH (21:00)
[2018-05-28] MEDS: prazosin 1mg capsule PO SCH (21:38)
[2018-05-28] MEDS: traZODone 50mg tablet PO SCH (21:38)
--- NOTE | 2018-05-29 03:18 | NUR ---
Nursing Progress Note: Legal hold:5150 Client on involuntary status for DTS Report received from nurse Kailey RN with use of SBAR Pt sleeping at start of shift. Woke up and came to group room for snack. Pleasant and cooperative with care. Pleasant and cooperative with care. Took HS meds and went back to sleep. S/I, H/I: +SI/passive HI; "only to defend myself." A/VH: Pt denies though appears internally preoccupied Sleep: sleeping at this time ADL's:Independent Group attendance: Came to group room for snack. Were meds taken:Yes Any med S/E: None noted or reported Mental Status Exam Appearance: Clean, dressed in scrubs Eye contact:Fair Behavior: Paranoid, mostly isolative to self and bed Speech:Clear, audible Mood: quiet withdrawn Affect: hypervigilant, fearful Thought process: Racing Thought Content: Believes people are out to harm him, insists that it is real Cognition: A/O X 4 Insight: poor Judgment:poor Interventions PRN's used: none Therapeutic interventions: 1:1 assessment, provide quiet calm environment, medication administration, education, and monitoring, Q 15 minute safety checks. Restraints/seclusion/emergency medication: N/A Justification of Continued Inpatient Treatment: Pt is paranoid and delusional, he is endorsing SI and passive HI, he has Hx of multiple past suicide attempts, he is homeless. Pt needs crisis stabilization and medication adjustment in a safe, therapeutic environment.
[2018-05-29 07:43] VITALS: BP 101/60
[2018-05-29] MEDS: OLANZapine 5mg rapidly disint. tablet PO SCH (07:58)
[2018-05-29] MEDS ORDERED: OLANZAPINE 5 MG TABLET PO SCH ×2 (08:00→21:00)
[2018-05-29] MEDS: hydrOXYzine 25 MG tablet PO PRN (16:15)
--- NOTE | 2018-05-29 17:00 | NUR ---
Nursing Progress Note: Legal hold:5150 Client on involuntary status for DTS Report received from nurse Davis RN with use of SBAR Pt sleeping at start of shift. Pt. reports feeling suicidal with plan to OD. Pt. reports he is depressed. Pt. up for breakfast and medications but then goes back to sleep. Pt. reported feeling anxious about his ex-girlfriend and her boyfriend coming after him. Pt. given Atarax for anxiety. S/I, H/I: Pt. reports SI with plan to OD on medications. A/VH: Pt denies though appears internally preoccupied Sleep: Difficulty getting pt. up in the morning. Pt. napped x2 ADL's:Independent Group attendance: Pt. attended both groups. Were meds taken:Yes Any med S/E: None noted or reported Mental Status Exam Appearance: Clean, dressed in scrubs Eye contact:Fair Behavior: Pt. is isolative Speech:Clear, audible Mood: quiet, withdrawn Affect: flat Thought process: Poverty of thought, perseverates on ex-girlfriend and her boyfriend. Thought Content: poor Cognition: A/O X 4 Insight: poor Judgment:poor Interventions PRN's used: none Therapeutic interventions: 1:1 assessment, provide quiet calm environment, medication administration, education, and monitoring, Q 15 minute safety checks. Restraints/seclusion/emergency medication: N/A Justification of Continued Inpatient Treatment: Pt is paranoid and delusional, he is endorsing SI and passive HI, he has Hx of multiple past suicide attempts, he is homeless. Pt needs crisis stabilization and medication adjustment in a safe, therapeutic environment.
[2018-05-29 20:00] VITALS: BP 124/87
[2018-05-29] MEDS: prazosin 1mg capsule PO SCH (20:05)
[2018-05-29] MEDS: traZODone 50mg tablet PO SCH (20:05)
[2018-05-29] MEDS: LORazepam 1 MG tablet PO PRN (20:05)
[2018-05-29] MEDS: acetaminophen 325mg tablet PO PRN (20:15)
--- NOTE | 2018-05-30 00:45 | NUR ---
Nursing Progress Note: Legal hold:5250 Client on voluntary/involuntary status for being a danger to himself and gravely disabled Report received from nurse with use of SBAR: Anson MORALES Why are they here: 27 year old male admitted from the ER after he went there reporting that he was suicidal. He has relapsed on methamphetamine and lost his placement at [facility] and is now homeless. He has been very paranoid and psychotic and believes his life is in danger. He believes that his ex girlfriend and her boyfriend are following him and making threats against his life. Assessment What has happened this shift: The patient has been up on the unit but withdrawn and quiet. He appears anxious and internally preoccupied. He stated he has no plans for when he leaves the unit and stated "I don't know where it is going to be safe" At one point he was wanting to know why he was not being conserved and stated that he felt he should be conserved because he has had so many hospitalizations. He stated that his anxiety and depression were very high and that he was very worried because he believes that his son's mother and her boyfriend are following him where ever he goes. "They go outside of the buildings where I'm at and threaten me and intimidate me" Stated he felt safe here but "terrified" when he leaves. "They know where I'm at , every where I go" He also endorses suicidal thoughts "yea if I can't find a way to get out of living in fear I'm going to take my self out" At one point during the evening he called the police and reported his delusional beliefs that his life was in danger. He is wanted the social media job titles to help him to get into [facility]. He denies visual hallucinations. He is stating that he is hearing voices. S/I, H/I: The patient denies that he wants to harm others but stated he would only hurt someone else if he felt he had to defend himself. He does report suicidal thoughts A/VH: The patient reports hearing voices and he has paranoid delusions that his life is in danger Sleep:[] ADL's: Independent Group attendance: No PM group Were meds taken:Yes Any med S/E No Mental Status Exam Appearance: Adequately groomed and appropriately dressed Eye contact:Fair Behavior: acting out on delusional beliefs that his life is in danger and called the police Speech: Coherent, Spontaneous Mood: Anxious, depressed, fearful, despairing Affect:Blunted Thought process: paranoid, non reality based Thought Content:Paranoid delusions, suicidal, helpless hopeless, situational problems. Cognition: Alert. He is oriented Insight: Very poor Judgment: Very Poor Interventions PRN's used:Ativan Therapeutic interventions: One to one with the patient to assess severity of disordered thought process and self harm risk. Educated to medications and given ativan for high level of anxiety. Restraints/seclusion/emergency medication:NA Justification of Continued Inpatient Treatment: The patient continues to be a risk for suicide 2nd to his delusional fears and beliefs that his life is in danger.
[2018-05-30] MEDS ORDERED: acetaminophen 325mg tablet PO PRN (04:03)
[2018-05-30] MEDS ORDERED: mag hydrox/Alum hydrox/simeth 30ml oral suspension PO PRN (04:04)
[2018-05-30] MEDS ORDERED: magnesium hydroxide 30ml (MOM) UD suspension PO PRN (04:04)
[2018-05-30] MEDS ORDERED: loperamide 2mg capsule PO PRN (04:05)
[2018-05-30] MEDS: OLANZapine 5mg rapidly disint. tablet PO SCH (07:43)
[2018-05-30 07:47] VITALS: BP 109/67
[2018-05-30 08:04] LABS: CHOL/HDL RATIO 3.6 (0.00-4.99); CHOLESTEROL 126 MG/DL (0-200); HDL CHOLESTEROL 35 MG/DL (35-60); LDL CHOLESTEROL 80 MG/DL (50-100); TRIGLYCERIDES 70 MG/DL (20-135)
[2018-05-30 08:08] LABS: HEMOGLOBIN A1C 5.4 % (4.5-6.2)
[2018-05-30] MEDS: acetaminophen 325mg tablet PO PRN ×2 (11:11→21:21)
[2018-05-30] MEDS: hydrOXYzine 25 MG tablet PO PRN (11:16)
--- NOTE | 2018-05-30 17:00 | NUR ---
Nursing Progress Note: Legal hold:5250 Client on voluntary/involuntary status for being a danger to himself and gravely disabled Report received from nurse with use of SBAR: Jocelyn MORALES Why are they here: 27 year old male admitted from the ER after he went there reporting that he was suicidal. He has relapsed on methamphetamine and lost his placement at his program with [facility] and is now homeless. He has been very paranoid and psychotic and believes his life is in danger. He believes that his ex girlfriend and her boyfriend are following him and making threats against his life. Assessment What has happened this shift: Pt. asleep at start of shift. Pt. Pt. Isolative and gaurded this shift. Reports he is very anxious about ex-girlfriend and her boyfriend coming after him. Pt. given Atarax 50mg po with minimal effect, pt. refused Ativan PRN. Pt. denies hearing voices but Pt. appears internally preocupied. Pt. refused to go to his hearing today. Pt. to continue involuntary hospitalization per ruling today. Pt. did go to afternoon group but participated minimally. Pt. has limited social interaction with other pt.'s. Pt. given Tyelnol for headache with good effect. S/I, H/I: The patient denies that he wants to harm others but stated he would only hurt someone else if he felt he had to defend himself. He does report suicidal thoughts A/VH: The Pt. denies hearing voices but Pt. appears internally preocupied. Sleep: Napped x2 on this shift. ADL's: Independent Group attendance: No PM group Were meds taken:Yes Any med S/E No Mental Status Exam Appearance: Adequately groomed and appropriately dressed Eye contact:Fair Behavior: acting out on delusional beliefs that his life is in danger and called the police on mini shifter yesterday. Speech: Coherent, Spontaneous Mood: Anxious, depressed, fearful, despairing Affect:Blunted Thought process: paranoid, non reality based Thought Content:Paranoid delusions, suicidal, helpless hopeless, situational problems. Cognition: Alert. He is oriented Insight: Very poor Judgment: Very Poor Interventions PRN's used:Atarax and Tylenol. Therapeutic interventions: One to one with the patient to assess severity of disordered thought process and self harm risk. Educated to medications and given ativan for high level of anxiety. Restraints/seclusion/emergency medication:NA Justification of Continued Inpatient Treatment: The patient continues to be a risk for suicide 2nd to his delusional fears and beliefs that his life is in danger.
[2018-05-30 19:00] VITALS: BP 118/74
[2018-05-30] MEDS: traZODone 50mg tablet PO SCH (20:54)
[2018-05-30] MEDS: OLANZAPINE 5 MG TABLET PO SCH (20:54)
[2018-05-30] MEDS: prazosin 1mg capsule PO SCH (20:55)
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
[2018-05-31 07:57] VITALS: BP 110/67
[2018-05-31] MEDS: OLANZapine 5mg rapidly disint. tablet PO SCH (08:02)
[2018-05-31] MEDS: acetaminophen 325mg tablet PO PRN (11:35)
--- NOTE | 2018-05-31 15:28 | NUR ---
Good appetite, eating 75-100% of regular diet and meeting needs. No nutrition problem at this time. Will continue to follow. Recommend: 1. Continue regular diet 2. Weekly wts Addendum: 05/31/18 at [address] Amended: Links added.
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
[2018-05-31 19:00] VITALS: BP 129/68
[2018-05-31] MEDS: OLANZAPINE 5 MG TABLET PO SCH (20:32)
[2018-05-31] MEDS: traZODone 50mg tablet PO SCH (20:33)
[2018-05-31] MEDS: NICOTINE POLACRILEX 4 MG LOZENGE BC PRN (20:33)
[2018-05-31] MEDS: prazosin 1mg capsule PO SCH (20:33)
[2018-05-31] MEDS: Cipro HC otic suspension 10ML bottle EACH EAR SCH (20:34)
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
[2018-06-01 08:00] VITALS: BP 117/72
[2018-06-01] MEDS: Cipro HC otic suspension 10ML bottle EACH EAR SCH (08:00)
[2018-06-01] MEDS: OLANZapine 5mg rapidly disint. tablet PO SCH (08:56)
--- NOTE | 2018-06-01 09:01 | NUR ---
Nursing Note: Pt ordered Cipro HC. Pt reported to have a perforated tympanic membrane. Clinical Pharmacology drug guide indicates that Cipro HC drops have an absolute contraindication for perforated tympanic membrane. Notified Dr. Chahal, he ordered the medication discontinued, pt to keep ear dry, and follow-up with ENT on discharge. Pt reports increased pain after drops were instilled in the ear last night. Will continue to monitor.
[2018-06-01] MEDS: NICOTINE POLACRILEX 4 MG LOZENGE BC PRN (13:31)
[2018-06-01] MEDS: hydrOXYzine 25 MG tablet PO PRN (15:44)
[2018-06-01] MEDS: acetaminophen 325mg tablet PO PRN ×2 (15:44→19:41)
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
[2018-06-01 19:00] VITALS: BP 132/78
[2018-06-01] MEDS: traZODone 50mg tablet PO SCH (20:50)
[2018-06-01] MEDS: OLANZAPINE 5 MG TABLET PO SCH (20:50)
[2018-06-01] MEDS: prazosin 1mg capsule PO SCH (20:50)
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
[2018-06-02 08:00] VITALS: BP 106/80
[2018-06-02] MEDS: OLANZapine 5mg rapidly disint. tablet PO SCH (08:24)
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
[2018-06-02] MEDS: traZODone 50mg tablet PO SCH (20:21)
[2018-06-02] MEDS: OLANZAPINE 5 MG TABLET PO SCH (20:21)
[2018-06-02] MEDS: LORazepam 1 MG tablet PO PRN (21:17)
[2018-06-02] MEDS: NICOTINE POLACRILEX 4 MG LOZENGE BC PRN (21:17)
[2018-06-02] MEDS: prazosin 1mg capsule PO SCH (21:56)
--- NOTE | 2018-06-03 01:05 | NUR ---
Nursing Progress Note: Legal hold:5250 Client on involuntary status for DTS Report received from charge nurse Portillo MORALES with use of SBAR Why are they here: Pt presented to the ER endorsing SI/HI. Pt was paranoid &delusional believing that people were trying to kill him. Pt has had multiple past suicide attempts, he has a hx of Schizophrenia and polysubstance abuse. He was in a sober living facility, [facility] but was kicked out due to relapse on methamphetamines. Assessment What has happened this shift: Pt was in rec room at change of shift. 1:1 assessment completed at bedside. Pt denies s/i, states he is worried about how he will deal with "the voices and being paranoid" when he leaves here. Explains he is worried about his ex and people getting in his mind "telepathically" Pt is anxious tonight about leaving. He states he has a lot to do, such as HUD paperwork, signing up for welding class, NA meetings, [facility] appts, adult school to get his GED. Pt says people at the [facility] pray for him and he doesn't know if what he is dealing with is mental health or something spiritual. He is trying to figure out if there is anything that will work to stop the voices he is hearing. Pt is hopeful that a cab will pick him up tomorrow so he can buy cigarettes before going to [place]. P S/I, H/I: denies A/VH: Pt continues to hear voices, wonders why they go away then come back Sleep: sleep si good ADL's:Independent Group attendance: no evening groups Were meds taken:Yes Any med S/E: None noted or reported Mental Status Exam Appearance: Clean, dressed in scrubs Eye contact:Fair Behavior: Paranoid, states "Im going to try to not be isolating, so Im trying to stay out of my room. Speech:Clear, audible Mood: anxious, fearful Affect: constricted Thought process: Racing Thought Content: Believes people are out to harm him, insists that it is real Cognition: A/O X 4 Insight: poor Judgment:poor Interventions PRN's used: nicotine lozenge, ativan Therapeutic interventions: 1:1 assessment, therapeutic conversation, reassurance that pt is safe, medication administration, education, and monitoring, Q 15 minute safety checks. Restraints/seclusion/emergency medication: N/A Justification of Continued Inpatient Treatment: Pt is paranoid and delusional, he is endorsing SI and passive HI, he has Hx of multiple past suicide attempts, he is homeless. Pt needs crisis stabilization and medication adjustment in a safe, therapeutic environment.
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
[2018-06-03 08:00] VITALS: BP 105/60
[2018-06-03] MEDS: OLANZapine 5mg rapidly disint. tablet PO SCH (08:02)
[2018-06-03] MEDS ORDERED: HYDR-3686 PO (11:04)
[2018-06-03] MEDS ORDERED: OLAN15TA17 PO (11:04)
[2018-06-03] MEDS ORDERED: OLAN5TAB26 PO (11:04)
[2018-06-03] MEDS ORDERED: PRAZ5CAP2 PO (11:04)
[2018-06-03] MEDS ORDERED: TRAZ-218 PO (11:04)
[2018-06-03] MEDS: LORazepam 1 MG tablet PO PRN (11:17)
--- NOTE | 2018-06-03 14:09 | NUR ---
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 Pt discharging to [facility]. No acute physical or emotional distress. Pt improving since admit. When asked how he feels pt stated, "Pretty good." Pt reported anxiety, but denied depression, SI and A/V H. He stated that he heard some voices last night, but has not heard them today. Discharge instructions given and pt provided opportunity to ask questions. Prescriptions called into [facility] on [address]. Community crisis service information and national suicide hotline handout given. Appointments: [facility] - Maude Thompson 06/07 @6804, Therapist Quentin Carney, [employer] [facility] 06/05 @5578, and [facility] PCP on 06/13 @ 1936. Pt encouraged to go to [facility] for treatment of his L ear. Pt denies having any ear pain at this time. Pt provided nicotine cessation education and handout given. Pt refused a nicotine replacement prescription. Pt possessions inventoried with FELY Liang and pt took all possessions with him.
== END 2018-06-03 12:10 | disposition home or self-care (01) | DRG 885 ==
LOC: ADULT MH 19:40
PROVIDERS: ADMIT Psychiatry & Neurology Psychiatry; ATTEND Psychiatry & Neurology Psychiatry
DX: F33.2 Major depressive disorder, recurrent severe without psychotic features (principal); F15.20 Other stimulant dependence, uncomplicated; R45.851 Suicidal ideations; S09.22XA Traumatic rupture of left ear drum, initial encounter; F20.0 Paranoid schizophrenia; F17.210 Nicotine dependence, cigarettes, uncomplicated; K74.60 Unspecified cirrhosis of liver; F41.9 Anxiety disorder, unspecified; X58.XXXA Exposure to other specified factors, initial encounter; G47.00 Insomnia, unspecified; Z91.09 Other allergy status, other than to drugs and biological substances; Z80.1 Family history of malignant neoplasm of trachea, bronchus and lung; Y93.89 Activity, other specified; Y92.89 Other specified places as the place of occurrence of the external cause; Y99.8 Other external cause status
CPT/HCPCS: 36415; 80061; 83036; 87070; 99285; Q0177; Q2037

== ENCOUNTER 2018-10-19 18:35 | Emergency (ER) | payer MEDICARE, MEDICAID ==
[~2018-10-19] VITALS: Ht 170.2 cm; Wt 100.0 kg
[~2018-10-19 18:35] MED LIST changes: +HYDR-3686 PO; -HYDR50TA65 PO; -OLAN10TA19 PO; +OLAN15TA17 PO; -PRAZ1CAP5 PO; +PRAZ5CAP2 PO; +TRAZ-251 PO
[2018-10-19 19:30] LABS: BASOPHILS # (AUTO) 0.1 X10'3 (0-0.2); BASOPHILS % (AUTO) 0.6 % (0-1); EOSINOPHILS # (AUTO) 0.4 X10'3 (0-0.9); EOSINOPHILS % (AUTO) 3.6 % (0-6); HEMATOCRIT 46.2 % (42.0-52.0); HEMOGLOBIN 15.9 g/dl (14.0-17.9); LYMPHOCYTES # (AUTO) 2.7 X10'3 (1.1-4.8); LYMPHOCYTES % (AUTO) 27.2 % (21-51); MEAN CORPUSCULAR HEMOGLOBIN 30.6 PG (27.0-31.0); MEAN CORPUSCULAR HGB CONC 34.4 g/dL (33.0-36.5); MEAN CORPUSCULAR VOLUME 88.9 FL (78-98); MEAN PLATELET VOLUME 9.5 FL (7.4-10.4); MONOCYTES # (AUTO) 0.9 X10'3 (0-0.9); MONOCYTES % (AUTO) 8.7 % (2-12); NEUTROPHILS # (AUTO) 5.9 X10'3 (1.8-7.7); NEUTROPHILS % (AUTO) 59.9 % (42-75); PLATELET COUNT 245 X10'3 (140-440); RED BLOOD COUNT 5.19 X10'6 (4.70-6.10); RED CELL DISTRIBUTION WIDTH 13.9 % (11.5-14.5); WHITE BLOOD COUNT 9.9 X10'3 (4.5-11.0)
[2018-10-19 19:44] LABS: ALANINE AMINOTRANSFERASE 47 U/L (12-78); ALBUMIN 3.7 G/DL (3.4-5.0); ALKALINE PHOSPHATASE 113 IU/L (46-116); ANION GAP 9 (8-16); ASPARTATE AMINO TRANSFERASE 22 U/L (10-37); BILIRUBIN,TOTAL 0.2 MG/DL (0.1-1.0); BLOOD UREA NITROGEN 15 MG/DL (7-18); BUN/CREATININE RATIO 15.3 (5.4-32.0); CALCIUM 8.8 MG/DL (8.5-10.1); CHLORIDE 104 MMOL/L (99-107); CREATININE 0.98 MG/DL (0.60-1.10); GLUCOSE 101 MG/DL (70-104); POTASSIUM 3.8 MMOL/L (3.5-5.1); SODIUM 138 MMOL/L (135-145); TOTAL CARBON DIOXIDE 24.6 MMOL/L (24-32); TOTAL PROTEIN 7.3 G/DL (6.4-8.2); eGFR > 90 ML/MIN
[2018-10-19] MEDS ORDERED: azithromycin 250mg tablet PO ONE (19:45)
[2018-10-19] MEDS ORDERED: CefTRIAXone inj 500 MG in normal saline 50ml IV soln 50 ML IV ONE (19:45)
[2018-10-19 20:06] LABS: CLARITY,URINE CLEAR (Clear); COLOR,URINE YELLOW (Yellow); GLUCOSE, URINE NEGATIVE (Neg); KETONES,URINE NEGATIVE (Neg); LEUKOCYTE ESTERASE ,URINE NEGATIVE (Neg); NITRITES, URINE NEGATIVE (Neg); OCCULT BLOOD,URINE NEGATIVE (Neg); PROTEIN,URINE NEGATIVE (Neg); UROBILINOGEN,URINE 0.2 E.U/dL (0.2-1.0)
[2018-10-19 20:08] LABS: UA COLLECTION TYPE CLN CATCH MIDSTREAM
[2018-10-19 20:20] VITALS: BP 124/79
== END 2018-10-19 20:50 | disposition home or self-care (01) ==
LOC: ER 18:35
DX: R10.30 Lower abdominal pain, unspecified (principal); F41.9 Anxiety disorder, unspecified; F31.9 Bipolar disorder, unspecified; F20.9 Schizophrenia, unspecified; F12.90 Cannabis use, unspecified, uncomplicated; F15.90 Other stimulant use, unspecified, uncomplicated; Z56.0 Unemployment, unspecified; Z86.14 Personal history of Methicillin resistant Staphylococcus aureus infection; Z88.8 Allergy status to other drugs, medicaments and biological substances; Z79.899 Other long term (current) drug therapy
CPT/HCPCS: 36415; 80053; 81003; 85025; 85610; 87040; 96365; 99283; J0696

== ENCOUNTER 2018-10-24 07:40 | Emergency (ER) | payer MEDICARE, MEDICAID ==
[~2018-10-24] VITALS: Ht 170.2 cm; Wt 97.7 kg
[2018-10-24 07:49] VITALS: BP 129/80
== END 2018-10-24 08:20 | disposition left against medical advice (07) ==
LOC: ER 07:40
DX: R10.9 Unspecified abdominal pain (principal); Z53.21 Procedure and treatment not carried out due to patient leaving prior to being seen by health care provider

== ENCOUNTER → 2019-07-11 | Outpatient (CLI) | payer MEDICARE, MEDICAID ==
[~2019-07-11] VITALS: Ht 170.2 cm; Wt 111.1 kg
[~2019-07-11] MED LIST changes: +albuterol 2.5 MG/3 ML nebule NEB PRN
== END | disposition home or self-care (01) ==
LOC: RT 07:15
PROVIDERS: ATTEND Family Medicine
DX: J44.9 Chronic obstructive pulmonary disease, unspecified (principal); Z87.898 Personal history of other specified conditions
CPT/HCPCS: 94060; 94760

== ENCOUNTER 2019-11-05 21:00 | Emergency (ER) | payer MEDICARE, MEDICAID ==
[~2019-11-05] VITALS: Ht 162.6 cm; Wt 113.6 kg
[~2019-11-05 21:00] MED LIST changes: -albuterol 2.5 MG/3 ML nebule NEB PRN
[2019-11-05 21:33] LABS: BASOPHILS # (AUTO) 0.1 X10'3 (0-0.2); BASOPHILS % (AUTO) 0.7 % (0-1); EOSINOPHILS # (AUTO) 0.6 X10'3 (0-0.9); EOSINOPHILS % (AUTO) 6.6 % (0-6); HEMATOCRIT 43.9 % (42.0-52.0); HEMOGLOBIN 14.9 g/dl (14.0-17.9); LYMPHOCYTES # (AUTO) 2.4 X10'3 (1.1-4.8); LYMPHOCYTES % (AUTO) 26.4 % (21-51); MEAN CORPUSCULAR HEMOGLOBIN 29.9 PG (27.0-31.0); MEAN CORPUSCULAR HGB CONC 33.9 g/dL (33.0-36.5); MEAN CORPUSCULAR VOLUME 88.1 FL (78-98); MEAN PLATELET VOLUME 8.8 FL (7.4-10.4); MONOCYTES # (AUTO) 0.5 X10'3 (0-0.9); MONOCYTES % (AUTO) 5.3 % (2-12); NEUTROPHILS # (AUTO) 5.6 X10'3 (1.8-7.7); PLATELET COUNT 250 X10'3 (140-440); RED BLOOD COUNT 4.97 X10'6 (4.70-6.10); WHITE BLOOD COUNT 9.1 X10'3 (4.5-11.0)
[2019-11-05 21:50] LABS: ALANINE AMINOTRANSFERASE 58 U/L (12-78); ALBUMIN 3.6 G/DL (3.4-5.0); ALBUMIN/GLOBULIN RATIO 1.1 (1.1-1.5); ALKALINE PHOSPHATASE 108 IU/L (46-116); ANION GAP 12 (8-16); ASPARTATE AMINO TRANSFERASE 31 U/L (10-37); BILIRUBIN,TOTAL 0.2 MG/DL (0.1-1.0); BLOOD UREA NITROGEN 8 MG/DL (7-18); BUN/CREATININE RATIO 6.7 (5.4-32.0); CALCIUM 8.6 MG/DL (8.5-10.1); CHLORIDE 108 MMOL/L (99-107); CREATININE 1.19 MG/DL (0.60-1.10); ETHANOL < 0.010 GM/DL (0.0-0.010); GLUCOSE 155 MG/DL (70-104); POTASSIUM 3.5 MMOL/L (3.5-5.1); SODIUM 141 MMOL/L (135-145); TOTAL CARBON DIOXIDE 20.7 MMOL/L (24-32); eGFR 73 ML/MIN
[2019-11-05 21:59] LABS: URINE AMPHETAMINE SCREEN NEGATIVE (Neg); URINE BARBITUATE SCREEN NEGATIVE (Neg); URINE BENZODIAZEPINES SCREEN NEGATIVE (Neg); URINE CANNABINOID SCREEN NEGATIVE (Neg); URINE COCAINE SCREEN NEGATIVE (Neg); URINE METHADONE SCREEN NEGATIVE (Neg); URINE OPIATE SCREEN NEGATIVE (Neg); URINE PHENCYCLIDINE SCREEN NEGATIVE (Neg)
[2019-11-05] MEDS ORDERED: OMEP40CA13 PO (22:17)
[2019-11-05] MEDS ORDERED: CLON-528 PO (22:17)
[2019-11-05] MEDS ORDERED: METH20TA PO (22:17)
--- NOTE | 2019-11-05 23:04 | NUR ---
Pt brought to ER overflow accomanied by staff. Pt got into bed. Pt given water and a warm blanket.
[2019-11-05] MEDS ORDERED: TRAZ-251 PO ×2 (23:10→23:15)
[2019-11-05] MEDS ORDERED: PRAZ5CAP2 PO (23:13)
[2019-11-05] MEDS ORDERED: OLAN5TAB5 PO (23:13)
--- NOTE | 2019-11-05 23:16 | NUR ---
josiah abreu signed and faxed to pharmacy
--- NOTE | 2019-11-06 01:00 | NUR ---
Pt sleeping soundly in bed on back, RR 16
--- NOTE | 2019-11-06 02:38 | NUR ---
Pt still sleeping soudly on back, light snoring. RR 14
--- NOTE | 2019-11-06 04:30 | NUR ---
Pt sleeping on back, RR 16.
--- NOTE | 2019-11-06 05:47 | NUR ---
PT PACKET FAXED TO [facility]
--- NOTE | 2019-11-06 05:48 | NUR ---
Pt resting with eyes closed on R side RR16
[2019-11-06 06:00] VITALS: BP 129/81
--- NOTE | 2019-11-06 06:57 | NUR ---
PT SLEEPING LAYING ON RIGHT SIDE, RR EVEN AT 16.
[2019-11-06] MEDS ORDERED: clonazePAM 0.5mg tablet PO SCH (08:00)
[2019-11-06] MEDS ORDERED: pantoprazole 40mg Tablet.DR PO SCH (08:00)
[2019-11-06] MEDS ORDERED: methylphenidate 5mg tablet PO SCH (08:00)
--- NOTE | 2019-11-06 10:22 | NUR ---
[facility] REP AT BEDSIDE TO EVAL PT.
[2019-11-06] MEDS ORDERED: prazosin 5mg capsule PO SCH (21:00)
[2019-11-06] MEDS ORDERED: OLANZapine 5mg rapidly disint. tablet PO SCH (21:00)
[2019-11-06] MEDS ORDERED: traZODone 50mg tablet PO SCH (21:00)
== END 2019-11-06 10:55 ==
LOC: ER 21:01
DX: S51.812A Laceration without foreign body of left forearm, initial encounter (principal); R45.851 Suicidal ideations; F41.9 Anxiety disorder, unspecified; F31.9 Bipolar disorder, unspecified; F20.9 Schizophrenia, unspecified; F12.90 Cannabis use, unspecified, uncomplicated; F15.90 Other stimulant use, unspecified, uncomplicated; Z86.14 Personal history of Methicillin resistant Staphylococcus aureus infection; Z72.89 Other problems related to lifestyle; Z56.0 Unemployment, unspecified; Z88.8 Allergy status to other drugs, medicaments and biological substances; Z79.899 Other long term (current) drug therapy; W45.8XXA Other foreign body or object entering through skin, initial encounter; Y93.89 Activity, other specified; Y92.89 Other specified places as the place of occurrence of the external cause; Y99.8 Other external cause status
CPT/HCPCS: 36415; 80053; 80305; 80320; 85025; 99285

== ENCOUNTER 2019-11-19 20:56 | Emergency (ER) | payer MEDICARE, MEDICAID ==
[~2019-11-19] VITALS: Ht 170.2 cm; Wt 113.6 kg
[~2019-11-19 20:56] MED LIST changes: +CLON-528 PO; -HYDR-3686 PO; +METH20TA PO; -OLAN15TA17 PO; -OLAN5TAB26 PO; +OLAN5TAB5 PO; +OMEP40CA13 PO
--- NOTE | 2019-11-19 21:25 | NUR ---
PER POISON CONTROL: MONITORFOR OVER SEDATION, SEIZURES, INTUBATE IF CLINICALLY INDICATED FROM OVER SEDATION. PERFORM EKG, LABS WITH ACETAMENOPHINE AND ASPIRIN WELL. IF QRS WIDER THAN 120 BOLUS WITH BICARB. IF QTC > 500 OPITIMIZE ELECTROLYTES
--- NOTE | 2019-11-19 21:34 | NUR ---
PER POSION CONTROL. 12 HOUR OBSERVATION IF EXTENDED RELEASE OR UNKNOWN, 6 HOURS IF IMMEDIATE. PT STATES THEY WERE EXTENDED RELEASE TRAZADONES. NOTIFIED
[2019-11-19 21:42] LABS: BASOPHILS # (AUTO) 0.1 X10'3 (0-0.2); BASOPHILS % (AUTO) 0.6 % (0-1); EOSINOPHILS # (AUTO) 0.3 X10'3 (0-0.9); EOSINOPHILS % (AUTO) 2.9 % (0-6); HEMOGLOBIN 16.9 g/dl (14.0-17.9); LYMPHOCYTES # (AUTO) 2.3 X10'3 (1.1-4.8); LYMPHOCYTES % (AUTO) 26.3 % (21-51); MEAN CORPUSCULAR HEMOGLOBIN 30.7 PG (27.0-31.0); MEAN CORPUSCULAR HGB CONC 34.4 g/dL (33.0-36.5); MEAN CORPUSCULAR VOLUME 89.1 FL (78-98); MEAN PLATELET VOLUME 9.3 FL (7.4-10.4); MONOCYTES # (AUTO) 0.5 X10'3 (0-0.9); MONOCYTES % (AUTO) 6.3 % (2-12); NEUTROPHILS # (AUTO) 5.6 X10'3 (1.8-7.7); NEUTROPHILS % (AUTO) 63.9 % (42-75); PLATELET COUNT 253 X10'3 (140-440); RED CELL DISTRIBUTION WIDTH 13.8 % (11.5-14.5); WHITE BLOOD COUNT 8.7 X10'3 (4.5-11.0)
[2019-11-19 21:55] LABS: ALANINE AMINOTRANSFERASE 63 U/L (12-78); ALBUMIN 4.4 G/DL (3.4-5.0); ALBUMIN/GLOBULIN RATIO 1.2 (1.1-1.5); ALKALINE PHOSPHATASE 95 IU/L (46-116); ANION GAP 11 (8-16); ASPARTATE AMINO TRANSFERASE 24 U/L (10-37); BILIRUBIN,TOTAL 0.5 MG/DL (0.1-1.0); BLOOD UREA NITROGEN 11 MG/DL (7-18); CALCIUM 9.1 MG/DL (8.5-10.1); CHLORIDE 103 MMOL/L (99-107); CREATININE 1.22 MG/DL (0.60-1.10); GLUCOSE 99 MG/DL (70-104); POTASSIUM 3.2 MMOL/L (3.5-5.1); SODIUM 137 MMOL/L (135-145); TOTAL CARBON DIOXIDE 23.1 MMOL/L (24-32); TOTAL PROTEIN 8.2 G/DL (6.4-8.2); eGFR 71 ML/MIN
[2019-11-19] MEDS ORDERED: potassium Cl 20 mEq SR tablet PO STA (22:10)
--- NOTE | 2019-11-19 22:11 | NUR ---
patient in bed supine eyes closed rr even un labored no observable s/s of acute stress at this time will continue to monitor
[2019-11-19 22:19] LABS: ACETAMINOPHEN < 2.0 UG/ML (10-30); ETHANOL < 0.010 GM/DL (0.0-0.010)
[2019-11-19] MEDS ORDERED: TOPI25TA15 PO (22:31)
[2019-11-19] MEDS ORDERED: PALI234D IM (22:31)
[2019-11-19] MEDS ORDERED: ESCI10TA PO (22:31)
[2019-11-19] MEDS ORDERED: HYDR50TA65 PO (22:32)
[2019-11-19 22:49] LABS: CLARITY,URINE CLEAR (Clear); COLOR,URINE YELLOW (Yellow); GLUCOSE, URINE NEGATIVE (Neg); KETONES,URINE NEGATIVE (Neg); LEUKOCYTE ESTERASE ,URINE NEGATIVE (Neg); NITRITES, URINE NEGATIVE (Neg); OCCULT BLOOD,URINE NEGATIVE (Neg); PH,URINE 6.5 (4.8-8.0); PROTEIN,URINE NEGATIVE (Neg); UROBILINOGEN,URINE 0.2 E.U/dL (0.2-1.0)
[2019-11-19 22:55] LABS: URINE AMPHETAMINE SCREEN POSITIVE (Neg); URINE BARBITUATE SCREEN NEGATIVE (Neg); URINE BENZODIAZEPINES SCREEN NEGATIVE (Neg); URINE CANNABINOID SCREEN NEGATIVE (Neg); URINE COCAINE SCREEN NEGATIVE (Neg); URINE METHADONE SCREEN NEGATIVE (Neg); URINE OPIATE SCREEN NEGATIVE (Neg); URINE PHENCYCLIDINE SCREEN NEGATIVE (Neg)
[2019-11-19 22:56] LABS: UA COLLECTION TYPE URINAL
--- NOTE | 2019-11-20 00:16 | NUR ---
PATIENT IN BED EYES CLOSED COVERS ON LYING ON LEFT SIDE RR EVEN UN LABORED NO OBSERVABLE S/S OF ACUTE STRESS AT THIS TIME
--- NOTE | 2019-11-20 01:10 | NUR ---
PATIENT IN BED EYES CLOSED COVERS ON RR EVEN UN LABORED NO OBSERVABLE S/S OF ACUTE STRESS AT THIS TIME WILL CONTINUE TO MONITOR
--- NOTE | 2019-11-20 02:42 | NUR ---
PATIENT IN BED EYES CLOSED RR EVEN UN LABORED NO OBSERVABLE S/S OF ACUTE STRESS AT THIS TIME WILL CONTINUE TO MONITOR
--- NOTE | 2019-11-20 03:37 | NUR ---
patient in bed covers on eyes closed rr even un labored no observable s/s of acute stress at this time will continue to monitor
--- NOTE | 2019-11-20 05:22 | NUR ---
PATIENT IN BED COVERS ON, EYES CLOSED, RR EVEN UN LABORED NO OBSERVABLE S/S OF ACUTE STRESS AT THIS TIME, WILL CONTINUE TO MONITOR
--- NOTE | 2019-11-20 06:02 | NUR ---
pt resting with covers over head, audibly snoring. will continue to monitor, in no apparent distress
[2019-11-20] MEDS ORDERED: pantoprazole 40mg Tablet.DR PO SCH (07:30)
[2019-11-20] MEDS ORDERED: methylphenidate 5mg tablet PO SCH (08:00)
[2019-11-20] MEDS ORDERED: paliperidone palmitate inj 234 MG/1.5 ML SYRINGE IM SCH (08:00)
[2019-11-20] MEDS: clonazePAM 0.5mg tablet PO SCH ×3 (08:00→20:35)
--- NOTE | 2019-11-20 08:35 | NUR ---
POISION CONTROL CALLED AND GIVEN PATIENT UPDATE.
--- NOTE | 2019-11-20 09:29 | NUR ---
CALLED PHARMACY STATED WILL BRING RITALIN DOWN
--- NOTE | 2019-11-20 09:48 | NUR ---
PT AMBULATED TO ROOM 24 FROM MAIN ER BED 2 BY CARMEN KELLOGG
--- NOTE | 2019-11-20 09:51 | NUR ---
UP TO BR
--- NOTE | 2019-11-20 11:25 | NUR ---
PT RESTING ON RIGHT SIDE RR EQUAL AND UNLABORED
--- NOTE | 2019-11-20 12:44 | NUR ---
PT RESTING ON RIGHT SIDE, EYES CLOSED RR EQUAL AND UNLABORED
--- NOTE | 2019-11-20 13:13 | NUR ---
PATIENT SNORING AND LAYING ON RIGHT SIDE.
--- NOTE | 2019-11-20 15:00 | NUR ---
PT RESTING ON LEFT SIDE RR EQUAL AND UNLABORED
--- NOTE | 2019-11-20 17:28 | NUR ---
PT CONTINUES RESTING ON RIGHT SIDE RR EQUAL AND UNLABORED
--- NOTE | 2019-11-20 17:33 | NUR ---
PT FRIEND RADHA MORALES CALLED, PT SPOKE TO HIM AND GAVE PERMISSION FOR UP TO GIVE RADHA INFO AND UPDATES IF HE CALLS
--- NOTE | 2019-11-20 18:29 | NUR ---
Pt moved from an Overflow ED bed to ED bed 16 to continue being monitored until disposition from [facility]. Crisis Counselor Brian is at the bedside at this time. Assumed care of the patient at this time.
--- NOTE | 2019-11-20 19:25 | NUR ---
Pt is resting on the gurney, calm and cooperative.
--- NOTE | 2019-11-20 20:30 | NUR ---
Pt's evening medications given per order prior to discharge to home. Pt is phoning a ride. Pt's belongings returned to him at this time. IV discontinued, cath tip intact, dressing applied, no complications noted.
[2019-11-20 20:53] VITALS: BP 108/74
[2019-11-20] MEDS ORDERED: OLANZapine 5mg rapidly disint. tablet PO SCH (21:00)
[2019-11-20] MEDS ORDERED: hydrOXYzine 25 MG tablet PO SCH (21:00)
[2019-11-20] MEDS ORDERED: prazosin 5mg capsule PO SCH (21:00)
== END 2019-11-20 20:54 | disposition home or self-care (01) ==
LOC: ER 20:56
DX: T43.211A Poisoning by selective serotonin and norepinephrine reuptake inhibitors, accidental (unintentional), initial encounter (principal); R44.0 Auditory hallucinations; F31.9 Bipolar disorder, unspecified; F20.9 Schizophrenia, unspecified; F41.9 Anxiety disorder, unspecified; F12.90 Cannabis use, unspecified, uncomplicated; F15.90 Other stimulant use, unspecified, uncomplicated; Z86.14 Personal history of Methicillin resistant Staphylococcus aureus infection; Z56.0 Unemployment, unspecified; Z72.89 Other problems related to lifestyle; Z88.8 Allergy status to other drugs, medicaments and biological substances; Z79.899 Other long term (current) drug therapy; Y92.89 Other specified places as the place of occurrence of the external cause
CPT/HCPCS: 36415; 80053; 80305; 80320; 80329; 81003; 84443; 85025; 93005; 99285; Q0177; 99284

== ENCOUNTER 2019-12-28 21:39 | Emergency (ER) | payer MEDICARE, MEDICAID ==
[~2019-12-28] VITALS: Ht 170.2 cm; Wt 113.6 kg
[~2019-12-28 21:39] MED LIST changes: +ESCI10TA PO; +HYDR50TA65 PO; +PALI234D IM; +TOPI25TA15 PO; -TRAZ-251 PO
[2019-12-28] MEDS ORDERED: normal saline 1000ML IV soln IVB ONE (22:35)
[2019-12-28] MEDS ORDERED: pantoprazole 40 MG vial IV ONE (22:35)
[2019-12-28 22:44] LABS: ALANINE AMINOTRANSFERASE 55 U/L (12-78); ALBUMIN/GLOBULIN RATIO 1.1 (1.1-1.5); ALKALINE PHOSPHATASE 97 IU/L (46-116); ANION GAP 12 (8-16); ASPARTATE AMINO TRANSFERASE 32 U/L (10-37); BILIRUBIN,TOTAL 0.3 MG/DL (0.1-1.0); BLOOD UREA NITROGEN 7 MG/DL (7-18); BUN/CREATININE RATIO 6.4 (5.4-32.0); CALCIUM 8.9 MG/DL (8.5-10.1); CHLORIDE 105 MMOL/L (99-107); CREATININE 1.09 MG/DL (0.60-1.10); GLUCOSE 91 MG/DL (70-104); POTASSIUM 3.4 MMOL/L (3.5-5.1); SODIUM 140 MMOL/L (135-145); TOTAL CARBON DIOXIDE 23.4 MMOL/L (24-32); TOTAL PROTEIN 7.6 G/DL (6.4-8.2); eGFR 81 ML/MIN
[2019-12-28 22:45] LABS: BASOPHILS % (AUTO) 0.4 % (0-1); EOSINOPHILS # (AUTO) 0.2 X10'3 (0-0.9); EOSINOPHILS % (AUTO) 1.5 % (0-6); HEMATOCRIT 45.9 % (42.0-52.0); HEMOGLOBIN 15.7 g/dl (14.0-17.9); LYMPHOCYTES # (AUTO) 2.5 X10'3 (1.1-4.8); LYMPHOCYTES % (AUTO) 18.6 % (21-51); MEAN CORPUSCULAR HGB CONC 34.1 g/dL (33.0-36.5); MEAN CORPUSCULAR VOLUME 88.1 FL (78-98); MEAN PLATELET VOLUME 9.6 FL (7.4-10.4); MONOCYTES # (AUTO) 0.7 X10'3 (0-0.9); MONOCYTES % (AUTO) 5.3 % (2-12); NEUTROPHILS # (AUTO) 10.1 X10'3 (1.8-7.7); NEUTROPHILS % (AUTO) 74.2 % (42-75); PLATELET COUNT 244 X10'3 (140-440); RED BLOOD COUNT 5.21 X10'6 (4.70-6.10); RED CELL DISTRIBUTION WIDTH 13.8 % (11.5-14.5); WHITE BLOOD COUNT 13.5 X10'3 (4.5-11.0)
[2019-12-28 23:33] LABS: URINE AMPHETAMINE SCREEN NEGATIVE (Neg); URINE BARBITUATE SCREEN NEGATIVE (Neg); URINE BENZODIAZEPINES SCREEN POSITIVE (Neg); URINE CANNABINOID SCREEN NEGATIVE (Neg); URINE COCAINE SCREEN NEGATIVE (Neg); URINE METHADONE SCREEN NEGATIVE (Neg); URINE OPIATE SCREEN NEGATIVE (Neg); URINE PHENCYCLIDINE SCREEN NEGATIVE (Neg)
[2019-12-29 00:23] VITALS: BP 128/84
== END 2019-12-29 00:37 | disposition home or self-care (01) ==
LOC: ER 21:40
DX: G40.909 Epilepsy, unspecified, not intractable, without status epilepticus (principal); R10.84 Generalized abdominal pain; R11.10 Vomiting, unspecified; K21.9 Gastro-esophageal reflux disease without esophagitis; Z86.14 Personal history of Methicillin resistant Staphylococcus aureus infection; F41.9 Anxiety disorder, unspecified; F31.9 Bipolar disorder, unspecified; F20.9 Schizophrenia, unspecified; F17.200 Nicotine dependence, unspecified, uncomplicated; F12.90 Cannabis use, unspecified, uncomplicated; F15.90 Other stimulant use, unspecified, uncomplicated; Z86.69 Personal history of other diseases of the nervous system and sense organs; Z72.89 Other problems related to lifestyle; Z56.0 Unemployment, unspecified; Z88.8 Allergy status to other drugs, medicaments and biological substances; Z79.899 Other long term (current) drug therapy
CPT/HCPCS: 36415; 80053; 80305; 85025; 96374; 99283; C9113; J7030

== ENCOUNTER 2020-03-30 11:29 | Emergency (ER) | payer MEDICARE, MEDICAID ==
[~2020-03-30] VITALS: Ht 170.2 cm; Wt 107.9 kg
[2020-03-30 11:39] VITALS: BP 127/78
--- NOTE | 2020-03-30 14:24 | NUR ---
Attempted to contact patient by phone, no answer, left message.
== END 2020-03-30 14:26 | disposition left against medical advice (07) ==
LOC: ER 11:30
DX: L02.414 Cutaneous abscess of left upper limb (principal); Z53.21 Procedure and treatment not carried out due to patient leaving prior to being seen by health care provider

== ENCOUNTER 2020-06-26 09:17 | Emergency (ER) | payer MEDICARE, MEDICAID ==
[~2020-06-26] VITALS: Ht 170.2 cm; Wt 104.4 kg
[2020-06-26 10:01] VITALS: BP 144/94
[2020-06-26] MEDS ORDERED: Cipro HC otic suspension 10ML bottle EACH EAR STA (10:49)
[2020-06-26] MEDS ORDERED: CIPR10DR EACH EAR (11:08)
== END 2020-06-26 12:13 | disposition home or self-care (01) ==
LOC: ER 09:18
DX: S00.452A Superficial foreign body of left ear, initial encounter (principal); S00.451A Superficial foreign body of right ear, initial encounter; H60.93 Unspecified otitis externa, bilateral; L05.91 Pilonidal cyst without abscess; K21.9 Gastro-esophageal reflux disease without esophagitis; F31.9 Bipolar disorder, unspecified; F41.9 Anxiety disorder, unspecified; F20.9 Schizophrenia, unspecified; F12.90 Cannabis use, unspecified, uncomplicated; F15.90 Other stimulant use, unspecified, uncomplicated; Z56.0 Unemployment, unspecified; Z86.14 Personal history of Methicillin resistant Staphylococcus aureus infection; Z86.69 Personal history of other diseases of the nervous system and sense organs; Z72.89 Other problems related to lifestyle; Z88.8 Allergy status to other drugs, medicaments and biological substances; Z79.899 Other long term (current) drug therapy; X58.XXXA Exposure to other specified factors, initial encounter; Y93.89 Activity, other specified; Y92.89 Other specified places as the place of occurrence of the external cause; Y99.8 Other external cause status
CPT/HCPCS: 69200; 99284

== ENCOUNTER 2020-07-14 07:58 | Emergency (ER) | payer MEDICARE, MEDICAID ==
[~2020-07-14] VITALS: Ht 170.2 cm; Wt 104.5 kg
[2020-07-14 08:23] VITALS: BP 120/72
[2020-07-14] MEDS ORDERED: ondansetron/PF 4mg/2ml inj IV ONE (08:25)
[2020-07-14] MEDS ORDERED: normal saline 1000ml 1,000 ML IV ONE (08:25)
[2020-07-14] MEDS ORDERED: pantoprazole 40 MG vial IV ONE (08:25)
[2020-07-14] MEDS ORDERED: famotidine/PF 10 mg/ml inj IV ONE (08:25)
[2020-07-14 08:29] LABS: BASOPHILS % (AUTO) 0.4 % (0-1); EOSINOPHILS # (AUTO) 0.3 X10'3 (0-0.9); EOSINOPHILS % (AUTO) 3.3 % (0-6); HEMATOCRIT 46.7 % (42.0-52.0); HEMOGLOBIN 15.8 g/dl (14.0-17.9); LYMPHOCYTES % (AUTO) 11.3 % (21-51); MEAN CORPUSCULAR HGB CONC 33.9 g/dL (33.0-36.5); MEAN CORPUSCULAR VOLUME 88.6 FL (78-98); MEAN PLATELET VOLUME 9.4 FL (7.4-10.4); MONOCYTES # (AUTO) 0.7 X10'3 (0-0.9); NEUTROPHILS # (AUTO) 7.1 X10'3 (1.8-7.7); PLATELET COUNT 231 X10'3 (140-440); RED BLOOD COUNT 5.27 X10'6 (4.70-6.10); RED CELL DISTRIBUTION WIDTH 13.6 % (11.5-14.5); WHITE BLOOD COUNT 9.2 X10'3 (4.5-11.0)
[2020-07-14 08:44] LABS: ALANINE AMINOTRANSFERASE 48 U/L (12-78); ALBUMIN 3.8 G/DL (3.4-5.0); ALKALINE PHOSPHATASE 108 IU/L (46-116); ANION GAP 11 (8-16); ASPARTATE AMINO TRANSFERASE 33 U/L (10-37); BILIRUBIN,TOTAL 0.5 MG/DL (0.1-1.0); BLOOD UREA NITROGEN 7 MG/DL (7-18); BUN/CREATININE RATIO 5.9 (5.4-32.0); CALCIUM 8.9 MG/DL (8.5-10.1); CHLORIDE 103 MMOL/L (99-107); CREATININE 1.18 MG/DL (0.60-1.10); GLUCOSE 135 MG/DL (70-104); LIPASE < 50 U/L (73-393); POTASSIUM 3.5 MMOL/L (3.5-5.1); SODIUM 138 MMOL/L (135-145); TOTAL CARBON DIOXIDE 24.4 MMOL/L (24-32); TOTAL PROTEIN 7.8 G/DL (6.4-8.2); eGFR 74 ML/MIN
[2020-07-14] MEDS ORDERED: POLY17PO10 PO (09:31)
[2020-07-14] MEDS ORDERED: ONDA4TAB6 PO (09:31)
== END 2020-07-14 09:41 | disposition home or self-care (01) ==
LOC: ER 07:59
DX: K52.9 Noninfective gastroenteritis and colitis, unspecified (principal); K62.5 Hemorrhage of anus and rectum; R11.2 Nausea with vomiting, unspecified; K21.9 Gastro-esophageal reflux disease without esophagitis; F41.9 Anxiety disorder, unspecified; F31.9 Bipolar disorder, unspecified; F20.9 Schizophrenia, unspecified; F12.90 Cannabis use, unspecified, uncomplicated; F15.90 Other stimulant use, unspecified, uncomplicated; Z86.69 Personal history of other diseases of the nervous system and sense organs; Z86.14 Personal history of Methicillin resistant Staphylococcus aureus infection; Z72.89 Other problems related to lifestyle; Z56.0 Unemployment, unspecified; Z88.8 Allergy status to other drugs, medicaments and biological substances; Z79.899 Other long term (current) drug therapy
CPT/HCPCS: 36415; 80053; 83690; 85025; 96361; 96374; 96375; 99284; C9113; J2405; J3490; J7030

== ENCOUNTER 2020-12-20 21:05 | Emergency (ER) | payer BC, MEDICAID ==
[~2020-12-20] VITALS: Ht 170.2 cm; Wt 111.4 kg
[~2020-12-20 21:05] MED LIST changes: -OMEP40CA13 PO; +OMEP40CA21 PO; +ONDA4TAB6 PO
[2020-12-20] MEDS ORDERED: normal saline 1000ML IV soln IVB ONE (21:45)
[2020-12-20 22:17] LABS: BASOPHILS # (AUTO) 0.1 X10'3 (0-0.2); BASOPHILS % (AUTO) 0.5 % (0-1); EOSINOPHILS # (AUTO) 0.4 X10'3 (0-0.9); EOSINOPHILS % (AUTO) 3.3 % (0-6); HEMATOCRIT 46.2 % (42.0-52.0); LYMPHOCYTES # (AUTO) 3.1 X10'3 (1.1-4.8); LYMPHOCYTES % (AUTO) 29.3 % (21-51); MEAN CORPUSCULAR HEMOGLOBIN 30.7 PG (27.0-31.0); MEAN CORPUSCULAR HGB CONC 34.7 g/dL (33.0-36.5); MEAN CORPUSCULAR VOLUME 88.5 FL (78-98); MEAN PLATELET VOLUME 9.6 FL (7.4-10.4); MONOCYTES # (AUTO) 0.7 X10'3 (0-0.9); MONOCYTES % (AUTO) 6.1 % (2-12); NEUTROPHILS # (AUTO) 6.5 X10'3 (1.8-7.7); NEUTROPHILS % (AUTO) 60.8 % (42-75); PLATELET COUNT 265 X10'3 (140-440); RED BLOOD COUNT 5.22 X10'6 (4.70-6.10); RED CELL DISTRIBUTION WIDTH 13.1 % (11.5-14.5); WHITE BLOOD COUNT 10.7 X10'3 (4.5-11.0)
[2020-12-20 22:26] LABS: ALANINE AMINOTRANSFERASE 61 U/L (12-78); ALBUMIN 3.9 G/DL (3.4-5.0); ALKALINE PHOSPHATASE 94 IU/L (46-116); ANION GAP 11 (8-16); ASPARTATE AMINO TRANSFERASE 27 U/L (10-37); BILIRUBIN,TOTAL 0.4 MG/DL (0.1-1.0); BLOOD UREA NITROGEN 9 MG/DL (7-18); BUN/CREATININE RATIO 8.1 (5.4-32.0); CALCIUM 8.7 MG/DL (8.5-10.1); CHLORIDE 107 MMOL/L (99-107); CREATININE 1.11 MG/DL (0.60-1.10); ETHANOL < 0.010 GM/DL (0.0-0.010); GLUCOSE 143 MG/DL (70-104); POTASSIUM 3.4 MMOL/L (3.5-5.1); SODIUM 140 MMOL/L (135-145); TOTAL PROTEIN 7.7 G/DL (6.4-8.2); eGFR 79 ML/MIN
[2020-12-20 23:09] LABS: URINE AMPHETAMINE SCREEN NEGATIVE (Neg); URINE BARBITUATE SCREEN NEGATIVE (Neg); URINE BENZODIAZEPINES SCREEN NEGATIVE (Neg); URINE CANNABINOID SCREEN NEGATIVE (Neg); URINE COCAINE SCREEN NEGATIVE (Neg); URINE METHADONE SCREEN NEGATIVE (Neg); URINE OPIATE SCREEN NEGATIVE (Neg); URINE PHENCYCLIDINE SCREEN NEGATIVE (Neg)
[2020-12-21 02:19] VITALS: BP 95/67
== END 2020-12-21 03:20 | disposition home or self-care (01) ==
LOC: ER 21:05
DX: T40.2X1A Poisoning by other opioids, accidental (unintentional), initial encounter (principal); F41.9 Anxiety disorder, unspecified; F32.9 Major depressive disorder, single episode, unspecified; F20.9 Schizophrenia, unspecified; G40.909 Epilepsy, unspecified, not intractable, without status epilepticus; J45.909 Unspecified asthma, uncomplicated; K21.9 Gastro-esophageal reflux disease without esophagitis; G47.30 Sleep apnea, unspecified; F17.200 Nicotine dependence, unspecified, uncomplicated; F12.90 Cannabis use, unspecified, uncomplicated; Z56.0 Unemployment, unspecified; Z86.14 Personal history of Methicillin resistant Staphylococcus aureus infection; Z88.8 Allergy status to other drugs, medicaments and biological substances; Z79.899 Other long term (current) drug therapy; Y92.89 Other specified places as the place of occurrence of the external cause
CPT/HCPCS: 36415; 80053; 80305; 80320; 85025; 93005; 96360; 96361; 99284; J7030

== ENCOUNTER 2021-04-09 09:53 | Emergency (ER) | payer BC, MEDICAID ==
[~2021-04-09] VITALS: Ht 170.2 cm; Wt 113.0 kg
[~2021-04-09 09:53] MED LIST changes: -CLON-528 PO; -ESCI10TA PO; -HYDR50TA65 PO; -PRAZ5CAP2 PO
[2021-04-09 10:08] VITALS: BP 143/84
[2021-04-09 10:53] LABS: BASOPHILS % (AUTO) 0.6 % (0-1); EOSINOPHILS # (AUTO) 0.4 X10'3 (0-0.9); EOSINOPHILS % (AUTO) 6.2 % (0-6); HEMATOCRIT 47.7 % (42.0-52.0); HEMOGLOBIN 16.2 g/dl (14.0-17.9); LYMPHOCYTES # (AUTO) 2.1 X10'3 (1.1-4.8); LYMPHOCYTES % (AUTO) 35.6 % (21-51); MEAN CORPUSCULAR HEMOGLOBIN 30.6 PG (27.0-31.0); MEAN PLATELET VOLUME 9.7 FL (7.4-10.4); MONOCYTES # (AUTO) 0.5 X10'3 (0-0.9); MONOCYTES % (AUTO) 8.2 % (2-12); NEUTROPHILS # (AUTO) 2.9 X10'3 (1.8-7.7); NEUTROPHILS % (AUTO) 49.4 % (42-75); PLATELET COUNT 226 X10'3 (140-440); RED BLOOD COUNT 5.29 X10'6 (4.70-6.10); RED CELL DISTRIBUTION WIDTH 13.5 % (11.5-14.5); WHITE BLOOD COUNT 5.8 X10'3 (4.5-11.0)
[2021-04-09 10:54] LABS: CLARITY,URINE CLEAR (Clear); COLOR,URINE YELLOW (Yellow); GLUCOSE, URINE NEGATIVE (Neg); KETONES,URINE NEGATIVE (Neg); LEUKOCYTE ESTERASE ,URINE NEGATIVE (Neg); NITRITES, URINE NEGATIVE (Neg); OCCULT BLOOD,URINE NEGATIVE (Neg); PROTEIN,URINE NEGATIVE (Neg); UROBILINOGEN,URINE 0.2 E.U/dL (0.2-1.0)
[2021-04-09 10:59] LABS: UA COLLECTION TYPE CLN CATCH MIDSTREAM
[2021-04-09 11:27] LABS: ALANINE AMINOTRANSFERASE 84 U/L (12-78); ALBUMIN 3.8 G/DL (3.4-5.0); ALBUMIN/GLOBULIN RATIO 1.1 (1.1-1.5); ALKALINE PHOSPHATASE 104 IU/L (46-116); ANION GAP 12 (8-16); ASPARTATE AMINO TRANSFERASE 42 U/L (10-37); BILIRUBIN,TOTAL 0.2 MG/DL (0.1-1.0); BLOOD UREA NITROGEN 15 MG/DL (7-18); BUN/CREATININE RATIO 12.7 (5.4-32.0); CALCIUM 8.7 MG/DL (8.5-10.1); CHLORIDE 108 MMOL/L (99-107); CREATININE 1.18 MG/DL (0.60-1.10); LIPASE 74 U/L (73-393); POTASSIUM 4.2 MMOL/L (3.5-5.1); SODIUM 140 MMOL/L (135-145); TOTAL PROTEIN 7.2 G/DL (6.4-8.2); eGFR 74 ML/MIN
[2021-04-09 11:28] LABS: GLUCOSE 155 MG/DL (70-104)
== END 2021-04-09 23:36 | disposition left against medical advice (07) ==
LOC: ER 09:54
DX: R10.9 Unspecified abdominal pain (principal); Z53.21 Procedure and treatment not carried out due to patient leaving prior to being seen by health care provider
CPT/HCPCS: 36415; 80053; 81003; 83690; 85025

== ENCOUNTER 2021-04-16 17:25 | Emergency (ER) | payer BC, MEDICAID ==
[~2021-04-16] VITALS: Ht 170.2 cm; Wt 118.0 kg
[2021-04-16 17:33] VITALS: BP 132/90
[2021-04-16 18:26] LABS: BASOPHILS % (AUTO) 0.2 % (0-1); EOSINOPHILS # (AUTO) 0.3 X10'3 (0-0.9); EOSINOPHILS % (AUTO) 3.1 % (0-6); HEMATOCRIT 44.9 % (42.0-52.0); HEMOGLOBIN 15.5 g/dl (14.0-17.9); LYMPHOCYTES # (AUTO) 2.5 X10'3 (1.1-4.8); LYMPHOCYTES % (AUTO) 22.9 % (21-51); MEAN CORPUSCULAR HGB CONC 34.6 g/dL (33.0-36.5); MEAN CORPUSCULAR VOLUME 89.5 FL (78-98); MEAN PLATELET VOLUME 10.1 FL (7.4-10.4); MONOCYTES # (AUTO) 0.7 X10'3 (0-0.9); MONOCYTES % (AUTO) 6.5 % (2-12); NEUTROPHILS # (AUTO) 7.4 X10'3 (1.8-7.7); NEUTROPHILS % (AUTO) 67.3 % (42-75); PLATELET COUNT 256 X10'3 (140-440); RED BLOOD COUNT 5.02 X10'6 (4.70-6.10); RED CELL DISTRIBUTION WIDTH 13.4 % (11.5-14.5); WHITE BLOOD COUNT 10.9 X10'3 (4.5-11.0)
[2021-04-16 18:30] LABS: CLARITY,URINE CLEAR (Clear); COLOR,URINE YELLOW (Yellow); GLUCOSE, URINE NEGATIVE (Neg); KETONES,URINE NEGATIVE (Neg); LEUKOCYTE ESTERASE ,URINE NEGATIVE (Neg); NITRITES, URINE NEGATIVE (Neg); OCCULT BLOOD,URINE NEGATIVE (Neg); PROTEIN,URINE NEGATIVE (Neg); UROBILINOGEN,URINE 0.2 E.U/dL (0.2-1.0)
[2021-04-16 18:34] LABS: UA COLLECTION TYPE CLN CATCH MIDSTREAM
[2021-04-16] MEDS ORDERED: ketorolac trometh inj. 60 MG/2 ML VIAL IM ONE (18:45)
[2021-04-16 18:51] LABS: ALANINE AMINOTRANSFERASE 58 U/L (12-78); ALBUMIN 3.9 G/DL (3.4-5.0); ALBUMIN/GLOBULIN RATIO 1.3 (1.1-1.5); ALKALINE PHOSPHATASE 91 IU/L (46-116); ANION GAP 14 (8-16); ASPARTATE AMINO TRANSFERASE 26 U/L (10-37); BILIRUBIN,TOTAL 0.3 MG/DL (0.1-1.0); BLOOD UREA NITROGEN 16 MG/DL (7-18); BUN/CREATININE RATIO 14.5 (5.4-32.0); CALCIUM 8.8 MG/DL (8.5-10.1); CHLORIDE 108 MMOL/L (99-107); GLUCOSE 104 MG/DL (70-104); POTASSIUM 3.8 MMOL/L (3.5-5.1); SODIUM 143 MMOL/L (135-145); TOTAL CARBON DIOXIDE 21.5 MMOL/L (24-32); TOTAL PROTEIN 6.9 G/DL (6.4-8.2); eGFR 80 ML/MIN
== END 2021-04-16 19:32 | disposition home or self-care (01) ==
LOC: ER 17:25
DX: R10.31 Right lower quadrant pain (principal); R11.0 Nausea; R30.0 Dysuria; J45.909 Unspecified asthma, uncomplicated; K21.9 Gastro-esophageal reflux disease without esophagitis; F41.9 Anxiety disorder, unspecified; F32.A Depression, unspecified; F20.9 Schizophrenia, unspecified; F12.90 Cannabis use, unspecified, uncomplicated; F15.90 Other stimulant use, unspecified, uncomplicated; Z86.69 Personal history of other diseases of the nervous system and sense organs; Z87.442 Personal history of urinary calculi; Z86.14 Personal history of Methicillin resistant Staphylococcus aureus infection; Z72.89 Other problems related to lifestyle; Z56.0 Unemployment, unspecified; Z88.8 Allergy status to other drugs, medicaments and biological substances; Z79.899 Other long term (current) drug therapy
CPT/HCPCS: 36415; 71045; 74176; 80053; 81003; 85025; 96372; 99285; J1885

== ENCOUNTER 2021-09-10 08:11 | Emergency (ER) | payer BC, MEDICAID ==
[~2021-09-10] VITALS: Ht 170.2 cm; Wt 122.7 kg
[2021-09-10 08:30] VITALS: BP 143/86
== END 2021-09-10 17:20 | disposition left against medical advice (07) ==
LOC: ER 08:12
DX: R42 Dizziness and giddiness (principal); Z53.21 Procedure and treatment not carried out due to patient leaving prior to being seen by health care provider
CPT/HCPCS: 93005

== ENCOUNTER 2021-09-29 07:02 | Emergency (ER) | payer BC, MEDICAID ==
[~2021-09-29] VITALS: Ht 170.2 cm; Wt 122.7 kg
[2021-09-29 07:05] VITALS: BP 146/89
[2021-09-29 08:03] LABS: BASOPHILS # (AUTO) 0.1 X10'3 (0-0.2); BASOPHILS % (AUTO) 0.5 % (0-1); EOSINOPHILS # (AUTO) 0.4 X10'3 (0-0.9); EOSINOPHILS % (AUTO) 3.9 % (0-6); HEMATOCRIT 44.9 % (42.0-52.0); HEMOGLOBIN 15.3 g/dl (14.0-17.9); LYMPHOCYTES # (AUTO) 2.8 X10'3 (1.1-4.8); LYMPHOCYTES % (AUTO) 24.9 % (21-51); MEAN CORPUSCULAR HGB CONC 34.1 g/dL (33.0-36.5); MEAN CORPUSCULAR VOLUME 88.1 FL (78-98); MEAN PLATELET VOLUME 9.1 FL (7.4-10.4); MONOCYTES # (AUTO) 0.8 X10'3 (0-0.9); MONOCYTES % (AUTO) 6.9 % (2-12); NEUTROPHILS # (AUTO) 7.1 X10'3 (1.8-7.7); NEUTROPHILS % (AUTO) 63.8 % (42-75); PLATELET COUNT 245 X10'3 (140-440); RED BLOOD COUNT 5.09 X10'6 (4.70-6.10); RED CELL DISTRIBUTION WIDTH 13.8 % (11.5-14.5); WHITE BLOOD COUNT 11.1 X10'3 (4.5-11.0)
[2021-09-29 08:11] LABS: ALANINE AMINOTRANSFERASE 80 U/L (12-78); ALBUMIN 3.7 G/DL (3.4-5.0); ALBUMIN/GLOBULIN RATIO 0.9 (1.1-1.5); ALKALINE PHOSPHATASE 91 IU/L (46-116); ANION GAP 11 (8-16); ASPARTATE AMINO TRANSFERASE 35 U/L (10-37); BILIRUBIN,TOTAL 0.3 MG/DL (0.1-1.0); BLOOD UREA NITROGEN 12 MG/DL (7-18); BUN/CREATININE RATIO 9.8 (5.4-32.0); CALCIUM 8.6 MG/DL (8.5-10.1); CHLORIDE 105 MMOL/L (99-107); CREATININE 1.23 MG/DL (0.60-1.10); GLUCOSE 123 MG/DL (70-104); POTASSIUM 3.8 MMOL/L (3.5-5.1); SODIUM 139 MMOL/L (135-145); TOTAL CARBON DIOXIDE 23.5 MMOL/L (24-32); TOTAL PROTEIN 7.6 G/DL (6.4-8.2); eGFR 70 ML/MIN
[2021-09-29 08:59] LABS: CLARITY,URINE CLEAR (Clear); GLUCOSE, URINE NEGATIVE (Neg); KETONES,URINE NEGATIVE (Neg); LEUKOCYTE ESTERASE ,URINE NEGATIVE (Neg); NITRITES, URINE NEGATIVE (Neg); OCCULT BLOOD,URINE NEGATIVE (Neg); PH,URINE 6.5 (4.8-8.0); PROTEIN,URINE NEGATIVE (Neg); UROBILINOGEN,URINE 0.2 E.U/dL (0.2-1.0)
[2021-09-29 09:14] LABS: COLOR,URINE STRAW (Yellow); UA COLLECTION TYPE CLN CATCH MIDSTREAM
== END 2021-09-29 11:00 | disposition home or self-care (01) ==
LOC: ER 07:02
DX: R10.9 Unspecified abdominal pain (principal); J45.909 Unspecified asthma, uncomplicated; K21.9 Gastro-esophageal reflux disease without esophagitis; F31.9 Bipolar disorder, unspecified; Z91.09 Other allergy status, other than to drugs and biological substances; Z56.0 Unemployment, unspecified
CPT/HCPCS: 36415; 80053; 81003; 85025; 99283

== ENCOUNTER 2021-11-07 19:54 | Emergency (ER) | payer BC, MEDICAID ==
[~2021-11-07] VITALS: Ht 170.2 cm; Wt 123.2 kg
[2021-11-07 20:07] VITALS: BP 169/87
== END 2021-11-07 20:14 | disposition left against medical advice (07) ==
LOC: ER 19:55
DX: R55 Syncope and collapse (principal); Z53.21 Procedure and treatment not carried out due to patient leaving prior to being seen by health care provider

== ENCOUNTER 2022-06-06 10:09 | Emergency (ER) | payer BC, MEDICAID ==
[~2022-06-06] VITALS: Ht 170.2 cm; Wt 125.0 kg
[2022-06-06] MEDS ORDERED: levetiracetam inj 1,000 MG in normal saline 100ml IV soln 90 ML IV STA (10:34)
[2022-06-06] MEDS ORDERED: magnesium 2GM in 50ml NS 50 ML IV ONE (10:35)
[2022-06-06] MEDS ORDERED: normal saline 1000ML IV soln IVB ONE (10:35)
[2022-06-06] MEDS ORDERED: LORazepam 2 mg/ml vial IV ONE (10:35)
[2022-06-06] MEDS ORDERED: levetiracetam inj 1,000 MG in normal saline 100ml IV soln 100 ML IV STA (10:41)
--- NOTE | 2022-06-06 10:54 | NUR ---
RN REQ PHARMACY MAKE KEPPRA AND BRING TO ED
[2022-06-06 11:16] LABS: BASOPHILS % (AUTO) 0.5 % (0-1); EOSINOPHILS # (AUTO) 0.3 X10'3 (0-0.9); EOSINOPHILS % (AUTO) 3.3 % (0-6); HEMATOCRIT 49.7 % (42.0-52.0); HEMOGLOBIN 16.5 g/dl (14.0-17.9); LYMPHOCYTES # (AUTO) 1.6 X10'3 (1.1-4.8); LYMPHOCYTES % (AUTO) 20.5 % (21-51); MEAN CORPUSCULAR HEMOGLOBIN 30.3 PG (27.0-31.0); MEAN CORPUSCULAR HGB CONC 33.1 g/dL (33.0-36.5); MEAN CORPUSCULAR VOLUME 91.6 FL (78-98); MEAN PLATELET VOLUME 8.9 FL (7.4-10.4); MONOCYTES # (AUTO) 0.6 X10'3 (0-0.9); MONOCYTES % (AUTO) 8.4 % (2-12); NEUTROPHILS # (AUTO) 5.2 X10'3 (1.8-7.7); NEUTROPHILS % (AUTO) 67.3 % (42-75); PLATELET COUNT 213 X10'3 (140-440); RED BLOOD COUNT 5.43 X10'6 (4.70-6.10); WHITE BLOOD COUNT 7.7 X10'3 (4.5-11.0)
[2022-06-06 11:25] LABS: ALANINE AMINOTRANSFERASE 79 U/L (12-78); ALBUMIN 3.5 G/DL (3.4-5.0); ALBUMIN/GLOBULIN RATIO 0.9 (1.1-1.5); ALKALINE PHOSPHATASE 85 IU/L (46-116); ANION GAP 11 (8-16); ASPARTATE AMINO TRANSFERASE 45 U/L (10-37); BILIRUBIN,TOTAL 0.3 MG/DL (0.1-1.0); BLOOD UREA NITROGEN 15 MG/DL (7-18); CALCIUM 8.7 MG/DL (8.5-10.1); CHLORIDE 106 MMOL/L (99-107); CREATINE KINASE 135 U/L (39-308); CREATININE 0.94 MG/DL (0.60-1.10); ETHANOL < 0.010 GM/DL (0.0-0.010); GLUCOSE 106 MG/DL (70-104); SODIUM 139 MMOL/L (135-145); TOTAL CARBON DIOXIDE 22.3 MMOL/L (24-32); TOTAL PROTEIN 7.6 G/DL (6.4-8.2); eGFR > 90 ML/MIN
[2022-06-06 12:51] LABS: CLARITY,URINE CLEAR (Clear); COLOR,URINE YELLOW (Yellow); GLUCOSE, URINE NEGATIVE (Neg); KETONES,URINE NEGATIVE (Neg); LEUKOCYTE ESTERASE ,URINE NEGATIVE (Neg); NITRITES, URINE NEGATIVE (Neg); OCCULT BLOOD,URINE NEGATIVE (Neg); PH,URINE 7.5 (4.8-8.0); PROTEIN,URINE NEGATIVE (Neg)
[2022-06-06 12:53] LABS: UA COLLECTION TYPE CLN CATCH MIDSTREAM
[2022-06-06 13:00] LABS: URINE AMPHETAMINE SCREEN NEGATIVE (Neg); URINE BARBITUATE SCREEN NEGATIVE (Neg); URINE BENZODIAZEPINES SCREEN NEGATIVE (Neg); URINE CANNABINOID SCREEN NEGATIVE (Neg); URINE COCAINE SCREEN NEGATIVE (Neg); URINE METHADONE SCREEN NEGATIVE (Neg); URINE OPIATE SCREEN NEGATIVE (Neg); URINE PHENCYCLIDINE SCREEN NEGATIVE (Neg)
[2022-06-06 13:38] VITALS: BP 151/92
== END 2022-06-06 14:08 | disposition home or self-care (01) ==
LOC: ER 10:10
DX: G40.909 Epilepsy, unspecified, not intractable, without status epilepticus (principal); J45.909 Unspecified asthma, uncomplicated; K21.9 Gastro-esophageal reflux disease without esophagitis; F31.9 Bipolar disorder, unspecified; F12.90 Cannabis use, unspecified, uncomplicated; F15.20 Other stimulant dependence, uncomplicated; Z88.8 Allergy status to other drugs, medicaments and biological substances; Z56.0 Unemployment, unspecified
CPT/HCPCS: 36415; 80053; 80305; 80320; 81003; 82550; 85025; 96365; 96366; 96368; 96375; 99284; J1953; J2060; J3475; J3490; J7030

== ENCOUNTER 2022-07-25 16:48 | Emergency (ER) | payer BC, MEDICAID ==
[~2022-07-25] VITALS: Ht 170.2 cm; Wt 122.0 kg
[~2022-07-25 16:48] MED LIST changes: +BUSP30TA3 PO; +CEPH-585 PO; +DIVA500T9 PO; +FLO0.4C PO; +HYDR-3686 PO; +LACT1CAP26 PO; -METH20TA PO; +NICO-687 TD; +NICO-907 BC; -OLAN5TAB5 PO; -ONDA4TAB6 PO; -PALI234D IM; +PROP20TA6 PO; +RISP2TAB85 PO; +TOP100T PO; -TOPI25TA15 PO
[2022-07-25 17:08] VITALS: BP 111/77
--- NOTE | 2022-07-25 19:31 | NUR ---
LABS DRAWN BY THIS NURSE AT 1923 RIGHT HAND.
[2022-07-25 19:49] LABS: ALANINE AMINOTRANSFERASE 53 U/L (12-78); ALBUMIN 3.7 G/DL (3.4-5.0); ALBUMIN/GLOBULIN RATIO 1.1 (1.1-1.5); ALKALINE PHOSPHATASE 100 IU/L (46-116); ANION GAP 11 (8-16); ASPARTATE AMINO TRANSFERASE 17 U/L (10-37); BILIRUBIN,TOTAL 0.3 MG/DL (0.1-1.0); BLOOD UREA NITROGEN 12 MG/DL (7-18); BUN/CREATININE RATIO 10.9 (10.0-20.0); CALCIUM 9.1 MG/DL (8.5-10.1); CHLORIDE 106 MMOL/L (99-107); GLUCOSE 111 MG/DL (70-104); POTASSIUM 4.1 MMOL/L (3.5-5.1); SODIUM 140 MMOL/L (135-145); TOTAL CARBON DIOXIDE 23.5 MMOL/L (24-32); TOTAL PROTEIN 7.1 G/DL (6.4-8.2); eGFR 79 ML/MIN
== END 2022-07-25 20:04 | disposition home or self-care (01) ==
LOC: ER 16:49
DX: R47.81 Slurred speech (principal); F31.9 Bipolar disorder, unspecified; F20.9 Schizophrenia, unspecified; K21.9 Gastro-esophageal reflux disease without esophagitis; F12.10 Cannabis abuse, uncomplicated; F15.10 Other stimulant abuse, uncomplicated; Z88.8 Allergy status to other drugs, medicaments and biological substances; Z79.899 Other long term (current) drug therapy
CPT/HCPCS: 36415; 80053; 99283

== ENCOUNTER 2022-09-07 15:40 | Emergency (ER) | payer BC, MEDICAID ==
[~2022-09-07] VITALS: Ht 170.2 cm; Wt 136.0 kg
[2022-09-07 15:44] VITALS: BP 160/82
[2022-09-07 17:50] LABS: CLARITY,URINE CLOUDY (Clear); COLOR,URINE YELLOW (Yellow); GLUCOSE, URINE NEGATIVE (Neg); KETONES,URINE TRACE mg/dl (Neg); LEUKOCYTE ESTERASE ,URINE NEGATIVE (Neg); NITRITES, URINE NEGATIVE (Neg); OCCULT BLOOD,URINE NEGATIVE (Neg); PROTEIN,URINE TRACE mg/dl (Neg); UROBILINOGEN,URINE 0.2 E.U/dL (0.2-1.0)
[2022-09-07 17:53] LABS: UA COLLECTION TYPE CLN CATCH MIDSTREAM
[2022-09-07 18:08] LABS: MUCUS STRANDS MODERATE /LPF (Neg); SQUAMOUS EPITHELIAL CELL,UR FEW /LPF (FEW); URINE AMPHETAMINE SCREEN NEGATIVE (Neg); URINE BARBITUATE SCREEN NEGATIVE (Neg); URINE BENZODIAZEPINES SCREEN NEGATIVE (Neg); URINE CANNABINOID SCREEN NEGATIVE (Neg); URINE COCAINE SCREEN NEGATIVE (Neg); URINE METHADONE SCREEN NEGATIVE (Neg); URINE OPIATE SCREEN NEGATIVE (Neg); URINE PHENCYCLIDINE SCREEN NEGATIVE (Neg)
[2022-09-07 18:09] LABS: AMORPHOUS PHOSPHATES 2+; BACTERIA,URINE 1+ /HPF (Neg); RBC,URINE 0-2 /HPF (0-2); WBC,URINE 0-4 /HPF (0-4)
--- NOTE | 2022-09-07 18:43 | NUR ---
[facility] CALLED FOR PATIENT.
== END 2022-09-07 18:39 | disposition home or self-care (01) ==
LOC: ER 15:40
DX: F41.9 Anxiety disorder, unspecified (principal); J45.909 Unspecified asthma, uncomplicated; F31.9 Bipolar disorder, unspecified; Z87.442 Personal history of urinary calculi; Z86.14 Personal history of Methicillin resistant Staphylococcus aureus infection; F20.9 Schizophrenia, unspecified; F12.10 Cannabis abuse, uncomplicated; F15.10 Other stimulant abuse, uncomplicated
CPT/HCPCS: 80305; 81001; 99283

== ENCOUNTER 2023-02-17 15:25 | Emergency (ER) | payer BC, MEDICAID ==
[~2023-02-17] VITALS: Ht 170.2 cm; Wt 122.7 kg
[2023-02-17 16:50] VITALS: RESP 17; TEMP 98.1
[2023-02-17 17:36] LABS: BASOPHILS % (AUTO) 0.4 % (0-1); EOSINOPHILS # (AUTO) 0.2 X10'3 (0-0.9); EOSINOPHILS % (AUTO) 1.4 % (0-6); HEMATOCRIT 45.4 % (42.0-52.0); HEMOGLOBIN 15.3 g/dl (14.0-17.9); LYMPHOCYTES # (AUTO) 2.6 X10'3 (1.1-4.8); LYMPHOCYTES % (AUTO) 23.9 % (21-51); MEAN CORPUSCULAR HEMOGLOBIN 30.3 PG (27.0-31.0); MEAN CORPUSCULAR HGB CONC 33.7 g/dL (33.0-36.5); MEAN CORPUSCULAR VOLUME 90.1 FL (78-98); MEAN PLATELET VOLUME 9.3 FL (7.4-10.4); MONOCYTES # (AUTO) 0.6 X10'3 (0-0.9); NEUTROPHILS # (AUTO) 7.4 X10'3 (1.8-7.7); NEUTROPHILS % (AUTO) 68.3 % (42-75); PLATELET COUNT 251 X10'3 (140-440); RED BLOOD COUNT 5.04 X10'6 (4.70-6.10); RED CELL DISTRIBUTION WIDTH 14.2 % (11.5-14.5); WHITE BLOOD COUNT 10.8 X10'3 (4.5-11.0)
[2023-02-17 17:48] LABS: ALANINE AMINOTRANSFERASE 68 U/L (12-78); ALBUMIN 3.6 G/DL (3.4-5.0); ALBUMIN/GLOBULIN RATIO 0.9 (1.1-1.5); ALKALINE PHOSPHATASE 72 IU/L (46-116); ANION GAP 12 (8-16); ASPARTATE AMINO TRANSFERASE 37 U/L (10-37); BILIRUBIN,TOTAL 0.5 MG/DL (0.1-1.0); BLOOD UREA NITROGEN 9 MG/DL (7-18); BUN/CREATININE RATIO 10.1 (10.0-20.0); CHLORIDE 106 MMOL/L (99-107); CREATININE 0.89 MG/DL (0.60-1.10); GLUCOSE 91 MG/DL (70-104); LIPASE 22 U/L (16-77); POTASSIUM 3.6 MMOL/L (3.5-5.1); SODIUM 139 MMOL/L (135-145); TOTAL CARBON DIOXIDE 21.4 MMOL/L (24-32); TOTAL PROTEIN 7.4 G/DL (6.4-8.2); eCRCL 113 ML/MIN; eGFR > 90 ML/MIN
[2023-02-17 18:08] LABS: BILIRUBIN,URINE NEGATIVE (Neg); CLARITY,URINE CLOUDY (Clear); COLOR,URINE YELLOW (Yellow); GLUCOSE, URINE NEGATIVE (Neg); KETONES,URINE NEGATIVE (Neg); LEUKOCYTE ESTERASE ,URINE NEGATIVE (Neg); NITRITES, URINE NEGATIVE (Neg); OCCULT BLOOD,URINE NEGATIVE (Neg); PH,URINE 6.5 (4.8-8.0); PROTEIN,URINE NEGATIVE (Neg)
[2023-02-17 18:21] LABS: UA COLLECTION TYPE CLN CATCH MIDSTREAM
[2023-02-17 18:22] LABS: BACTERIA,URINE FEW /HPF (Neg); MUCUS STRANDS MANY /LPF (Neg); RBC,URINE 0-2 /HPF (0-2); SQUAMOUS EPITHELIAL CELL,UR FEW /LPF (FEW); WBC,URINE 0-4 /HPF (0-4)
[2023-02-17] MEDS ORDERED: PANT20TA18 PO (18:40)
[2023-02-17 19:08] VITALS: BP 144/94; PULSE 84; O2SAT 97
== END 2023-02-17 19:10 | disposition home or self-care (01) ==
LOC: ER 15:26
DX: K92.2 Gastrointestinal hemorrhage, unspecified (principal)
CPT/HCPCS: 36415; 74176; 80053; 81001; 83690; 85025; 99284

== ENCOUNTER 2023-09-15 17:56 | Emergency (ER) | payer BC, MEDICAID ==
[~2023-09-15] VITALS: Ht 170.2 cm; Wt 116.8 kg
[~2023-09-15 17:56] MED LIST changes: +PANT20TA18 PO; +RISP-32 PO; -RISP2TAB85 PO
[2023-09-15 18:32] VITALS: BP 140/83; PULSE 82; RESP 18; TEMP 99.3; O2SAT 95
== END 2023-09-15 19:32 | disposition left against medical advice (07) ==
LOC: ER 17:56
DX: T62.0X1A Toxic effect of ingested mushrooms, accidental (unintentional), initial encounter (principal); Z53.21 Procedure and treatment not carried out due to patient leaving prior to being seen by health care provider; Y92.89 Other specified places as the place of occurrence of the external cause

== ENCOUNTER 2024-01-05 18:36 | Emergency (ER) | payer BC, MEDICAID ==
[~2024-01-05] VITALS: Ht 175.3 cm; Wt 95.5 kg
[2024-01-05 18:41] VITALS: BP 158/84; PULSE 74; TEMP 98.1; O2SAT 97
[2024-01-05 20:17] VITALS: RESP 18
== END 2024-01-05 20:18 | disposition home or self-care (01) ==
LOC: ER 18:37
DX: F22 Delusional disorders (principal); R00.2 Palpitations; J45.909 Unspecified asthma, uncomplicated; K21.9 Gastro-esophageal reflux disease without esophagitis; G47.30 Sleep apnea, unspecified; F31.9 Bipolar disorder, unspecified; F20.9 Schizophrenia, unspecified; F12.90 Cannabis use, unspecified, uncomplicated; F15.90 Other stimulant use, unspecified, uncomplicated; Z88.8 Allergy status to other drugs, medicaments and biological substances; Z79.899 Other long term (current) drug therapy
CPT/HCPCS: 99283

== ENCOUNTER 2024-05-05 00:40 | Emergency (ER) | payer BC, MEDICAID ==
[~2024-05-05] VITALS: Ht 170.2 cm; Wt 105.7 kg
[2024-05-05 01:10] LABS: BASOPHILS % (AUTO) 0.4 % (0-1); EOSINOPHILS # (AUTO) 0.2 X10'3 (0-0.9); EOSINOPHILS % (AUTO) 2.9 % (0-6); HEMATOCRIT 46.8 % (42.0-52.0); LYMPHOCYTES # (AUTO) 2.9 X10'3 (1.1-4.8); LYMPHOCYTES % (AUTO) 35.6 % (21-51); MEAN CORPUSCULAR HEMOGLOBIN 30.3 PG (27.0-31.0); MEAN CORPUSCULAR HGB CONC 34.1 g/dL (33.0-36.5); MEAN CORPUSCULAR VOLUME 88.9 FL (78-98); MEAN PLATELET VOLUME 9.4 FL (7.4-10.4); MONOCYTES # (AUTO) 0.5 X10'3 (0-0.9); MONOCYTES % (AUTO) 6.1 % (2-12); NEUTROPHILS # (AUTO) 4.5 X10'3 (1.8-7.7); PLATELET COUNT 311 X10'3 (140-440); RED BLOOD COUNT 5.27 X10'6 (4.70-6.10); RED CELL DISTRIBUTION WIDTH 13.3 % (11.5-14.5); WHITE BLOOD COUNT 8.2 X10'3 (4.5-11.0)
[2024-05-05 01:24] LABS: ALANINE AMINOTRANSFERASE 43 U/L (12-78); ALBUMIN 4.1 G/DL (3.4-5.0); ALKALINE PHOSPHATASE 85 IU/L (46-116); ANION GAP 10 (8-16); ASPARTATE AMINO TRANSFERASE 20 U/L (10-37); BILIRUBIN,TOTAL 0.4 MG/DL (0.1-1.0); BLOOD UREA NITROGEN 15 MG/DL (7-18); BUN/CREATININE RATIO 12.7 (10.0-20.0); CHLORIDE 103 MMOL/L (99-107); CREATININE 1.18 MG/DL (0.60-1.10); GLUCOSE 103 MG/DL (70-104); POTASSIUM 3.8 MMOL/L (3.5-5.1); SODIUM 137 MMOL/L (135-145); TOTAL PROTEIN 8.2 G/DL (6.4-8.2); eCRCL 85 ML/MIN; eGFR 72 ML/MIN
[2024-05-05 01:32] LABS: PRO BRAIN NATRIURETIC PEPTIDE < 30 PG/ML (0-125)
[2024-05-05] MEDS ORDERED: buprenorphine/naloxone 8MG-2MG SUBlingual film SL SCH (04:00)
[2024-05-05] MEDS: buprenorphine/naloxone 2-0.5mg sublingual tablet SL ONE (04:18)
[2024-05-05 04:19] VITALS: BP 116/73; PULSE 97; RESP 16; TEMP 99.8; O2SAT 95
== END 2024-05-05 04:25 | disposition home or self-care (01) ==
LOC: ER 00:40
DX: Z00.00 Encounter for general adult medical examination without abnormal findings (principal); R11.0 Nausea; R42 Dizziness and giddiness; F20.9 Schizophrenia, unspecified; F31.9 Bipolar disorder, unspecified; G47.30 Sleep apnea, unspecified; J45.909 Unspecified asthma, uncomplicated; K21.9 Gastro-esophageal reflux disease without esophagitis; F12.90 Cannabis use, unspecified, uncomplicated; F15.90 Other stimulant use, unspecified, uncomplicated; F10.90 Alcohol use, unspecified, uncomplicated; Z88.8 Allergy status to other drugs, medicaments and biological substances; Y90.9 Presence of alcohol in blood, level not specified
CPT/HCPCS: 36415; 71045; 80053; 83880; 84484; 85025; 93005; 99285

== ENCOUNTER 2024-05-13 20:41 | Emergency (ER) | payer BC, MEDICAID ==
[~2024-05-13] VITALS: Ht 170.2 cm; Wt 105.0 kg
[2024-05-13] MEDS ORDERED: buprenorphine/naloxone 8MG-2MG SUBlingual film SL ONE (22:45)
[2024-05-13] MEDS: buprenorphine/naloxone 8MG-2MG SUBlingual film SL ONE (22:49)
[2024-05-13 22:54] VITALS: BP 130/76; PULSE 99; RESP 18; TEMP 98.6; O2SAT 99
== END 2024-05-13 22:55 | disposition home or self-care (01) ==
LOC: ER 20:42
DX: F11.23 Opioid dependence with withdrawal (principal); J45.909 Unspecified asthma, uncomplicated; K21.9 Gastro-esophageal reflux disease without esophagitis; F20.9 Schizophrenia, unspecified; G47.30 Sleep apnea, unspecified; F41.9 Anxiety disorder, unspecified; F32.A Depression, unspecified; F12.90 Cannabis use, unspecified, uncomplicated; F15.90 Other stimulant use, unspecified, uncomplicated; Z56.0 Unemployment, unspecified; Z88.8 Allergy status to other drugs, medicaments and biological substances; Z79.899 Other long term (current) drug therapy; Z87.442 Personal history of urinary calculi
CPT/HCPCS: 99283

== ENCOUNTER 2024-05-16 20:44 | Emergency (ER) | payer BC, MEDICAID ==
[~2024-05-16] VITALS: Ht 170.2 cm; Wt 106.8 kg
[2024-05-16] MEDS: buprenorphine/naloxone 8MG-2MG SUBlingual film SL SCH (22:05)
[2024-05-16] MEDS ORDERED: BUPR1FIL3 SL ×2 (22:07→22:09)
[2024-05-16 22:17] VITALS: BP 146/84; PULSE 88; RESP 16; TEMP 98.4; O2SAT 98
== END 2024-05-16 22:27 | disposition home or self-care (01) ==
LOC: ER 20:45
DX: F11.23 Opioid dependence with withdrawal (principal); J45.909 Unspecified asthma, uncomplicated; G47.30 Sleep apnea, unspecified; F20.9 Schizophrenia, unspecified; F41.9 Anxiety disorder, unspecified; F32.A Depression, unspecified; K21.9 Gastro-esophageal reflux disease without esophagitis; F15.90 Other stimulant use, unspecified, uncomplicated; F12.90 Cannabis use, unspecified, uncomplicated; Z87.442 Personal history of urinary calculi; Z56.0 Unemployment, unspecified; Z88.8 Allergy status to other drugs, medicaments and biological substances; Z79.899 Other long term (current) drug therapy
CPT/HCPCS: 99283

== ENCOUNTER 2024-05-29 21:05 | Emergency (ER) | payer BC, MEDICAID ==
[~2024-05-29] VITALS: Ht 170.2 cm; Wt 106.8 kg
[2024-05-29 21:07] VITALS: BP 150/101; PULSE 90; RESP 14; O2SAT 98
[2024-05-29] MEDS: methylnaltrexone br 12mg/0.6ml inj***SubQ only SQ ONE (22:30)
[2024-05-29 22:43] VITALS: TEMP 98.5
== END 2024-05-29 22:49 | disposition home or self-care (01) ==
LOC: ER 21:06
DX: K59.03 Drug induced constipation (principal); T40.2X5A Adverse effect of other opioids, initial encounter; J45.909 Unspecified asthma, uncomplicated; K21.9 Gastro-esophageal reflux disease without esophagitis; F32.A Depression, unspecified; F12.90 Cannabis use, unspecified, uncomplicated; F15.90 Other stimulant use, unspecified, uncomplicated; F41.9 Anxiety disorder, unspecified; G47.30 Sleep apnea, unspecified; F20.9 Schizophrenia, unspecified; Z88.8 Allergy status to other drugs, medicaments and biological substances; Z79.899 Other long term (current) drug therapy; Z87.442 Personal history of urinary calculi; Z56.0 Unemployment, unspecified; Y92.89 Other specified places as the place of occurrence of the external cause
CPT/HCPCS: 96372; 99283; J2212

== ENCOUNTER 2024-07-01 04:05 | Emergency (ER) | payer BC, MEDICAID ==
[~2024-07-01] VITALS: Ht 170.2 cm; Wt 104.5 kg
[~2024-07-01 04:05] MED LIST changes: -FLO0.4C PO; +TAMS-55 PO
--- NOTE | 2024-07-01 04:24 | Physician Documentation ---
HPI ~ General Chief Complaint: Medication Request Stated Complaint: MED REQ Time Seen by MD: 04:16 Primary Medical Doctor: [facility] History of Present Illness HPI Comments Patient presents to the emergency room requesting medication refill for risperidone and Depakote. He reports he has been out for about a month. He has been trying to get refills from his primary care however due to some insurance issues he was run into problems. He does have a follow up appointment tomorrow in his attempt to get medication. Medication Reconciliation Allergies: Coded Allergies: lithium (Verified Allergy, Severe, 07/01/24) Scheduled Buspirone HCl (Buspirone HCl), 1 TAB PO BID, (Reported) Cephalexin*Monohydrate* (Keflex*), 500 MG PO Q8H Divalproex ER* (Depakote ER*), 1,000 MG PO HS, (Reported) Lactobacillus Rhamnosus (Culturelle), 10,000 MMU PO BID Nicotine 21 MG Patch* (Habitrol 21 MG Patch*), 1 PATCH TD DAILY Omeprazole (Prilosec), 20 MG PO QAM, (Reported) Pantoprazole Sodium (Protonix), 1 TAB PO DAILY Propranolol Hcl (Propranolol Hcl), 1 TAB PO BID, (Reported) Risperidone (Risperidone), 2 MG PO HS Tamsulosin Hcl* (Flomax*), 0.4 MG PO DAILY, (Reported) Topiramate (Topamax), 1 TAB PO DAILY AT 4PM, (Reported) Topiramate (Topamax), 100 MG PO DAILY, (Reported) Scheduled PRN Hydroxyzine Hcl* (Atarax*), 50 MG PO TID PRN for for anxiety/agitation Nicotine Polacrilex (Nicotine Lozenge), 2 MG BC Q2H PRN for NICOTINE CRAVING Past Medical History Past Medical History: Seizures, Asthma, Sleep Apnea, *GI/HEPATOBILIARY*, GERD, Kidney Stones, MRSA Abscess, *PSYCH*, Anxiety, Bipolar, Depression, Psychosis, Schizophrenia Past Surgical History: no surgical history Patient History: Cirrhosis of liver FH: lung cancer paternal grandfather Hepatitis C Alcohol Use: Sober Drug Use: marijuana, methamphetamine Lives with: Other Lives In: Other Occupation: unemployed Review of Systems ROS All review of systems negative except as per HPI Physical Exam Physical Exam Vital Signs: Temperature: 98.0, Source: Oral, Heart Rate: 112, Respiratory Rate: 16, BP: 111/87, Pulse Oximetry: 98, Weight: 104.500 Oxygen Flow Rate: 0 Physical Exam General: Patient is awake, alert, oriented x4 in no acute distress Head: Normocephalic and atraumatic. Eyes: Conjunctival normal. EOMI. PERRL. ENT: Mucous membranes moist. Neck: Supple, trachea is midline. Chest: Clear to auscultation bilaterally without rales, rhonchi, or wheezes. There is no accessory muscle use or retractions. Cardiac: Tachycardic and regular without murmurs, gallops, or rubs. Progress Results/Orders Results/Orders Vital Signs 07/01/24 04:07 Temp 98.0 Pulse 112 Resp 16 B/P (MAP) 111/87 Pulse Ox 98 O2 Flow Rate 0 Medical Decision Making Findings Patient presents to the emergency room for medication refill. Differentials include but are not limited to medication refill, malingering, medication noncompliance. Patient noted to have tachycardia however he was history of this. We will give him a small amount of medication until he was able to follow up with his doctor. Departure Disposition: HOME / SELF CARE / HOMELESS Impression: Primary Impression: Medication refill Condition: Fair Discharge Instructions: Medicine Refill at the Emergency Department Additional Instructions: Follow up with your doctor today for additional refills Referrals: NO PRIMARY CARE PROVIDER (PCP) Prescriptions Risperidone (Risperidone) 1 Mg Tab.rapdis 1 TAB PO HS, #10 TAB 0 Refills Prov: ALEJANDRO RAMIREZ MD 07/01/24 Divalproex ER* (Depakote ER*) 500 Mg Tab.sr.24h 2 TAB PO HS, #10 TAB Prov: ALEJANDRO RAMIREZ MD 07/01/24 Education Educated: Patient Educated regarding: diagnosis, treatment, need for follow up Signature Scribe Signature: No scribe Attestation: The note accurately reflects work and decisions made by me.Alejandro Ramirez MD 07/01/24 04:28 ALEJANDRO RAMIREZ MD July 01, 2024 04:24
[2024-07-01] MEDS ORDERED: RISP1TAB69 PO (04:28)
[2024-07-01] MEDS ORDERED: DIVA500T9 PO (04:28)
[2024-07-01] MEDS ORDERED: risperiDONE 2mg tablet PO ONE (04:30)
[2024-07-01] MEDS: divalproex sodium 500mg tablet.DR PO ONE (04:41)
[2024-07-01] MEDS: risperiDONE 0.5mg tablet PO ONE (04:41)
[2024-07-01 04:42] VITALS: BP 119/83; PULSE 82; RESP 16; TEMP 98.2; O2SAT 95
== END 2024-07-01 04:44 | disposition home or self-care (01) ==
LOC: ER 04:06
DX: Z00.8 Encounter for other general examination (principal); Z76.0 Encounter for issue of repeat prescription; F20.9 Schizophrenia, unspecified; F31.9 Bipolar disorder, unspecified; F41.9 Anxiety disorder, unspecified; G47.30 Sleep apnea, unspecified; J45.909 Unspecified asthma, uncomplicated; Z88.8 Allergy status to other drugs, medicaments and biological substances
CPT/HCPCS: 99283

== ENCOUNTER 2024-07-11 19:05 | Inpatient (IN) | payer BC, MEDICAID ==
[~2024-07-11] VITALS: Ht 170.2 cm; Wt 100.5 kg
[~2024-07-11 19:05] MED LIST changes: +RISP1TAB69 PO
[2024-07-11 19:58] LABS: BASOPHILS % (AUTO) 0.4 % (0-1); EOSINOPHILS # (AUTO) 0.2 X10'3 (0-0.9); EOSINOPHILS % (AUTO) 2.2 % (0-6); HEMATOCRIT 52.3 % (42.0-52.0); HEMOGLOBIN 17.7 g/dl (14.0-17.9); LYMPHOCYTES # (AUTO) 2.1 X10'3 (1.1-4.8); LYMPHOCYTES % (AUTO) 24.9 % (21-51); MEAN CORPUSCULAR HEMOGLOBIN 30.4 PG (27.0-31.0); MEAN CORPUSCULAR HGB CONC 33.9 g/dL (33.0-36.5); MEAN CORPUSCULAR VOLUME 89.7 FL (78-98); MONOCYTES # (AUTO) 0.6 X10'3 (0-0.9); MONOCYTES % (AUTO) 6.8 % (2-12); NEUTROPHILS # (AUTO) 5.6 X10'3 (1.8-7.7); NEUTROPHILS % (AUTO) 65.7 % (42-75); PLATELET COUNT 282 X10'3 (140-440); RED BLOOD COUNT 5.82 X10'6 (4.70-6.10); RED CELL DISTRIBUTION WIDTH 13.9 % (11.5-14.5); WHITE BLOOD COUNT 8.6 X10'3 (4.5-11.0)
[2024-07-11 20:05] LABS: BILIRUBIN,URINE NEGATIVE (Neg); CLARITY,URINE CLOUDY (Clear); COLOR,URINE YELLOW (Yellow); GLUCOSE, URINE NEGATIVE (Neg); KETONES,URINE TRACE mg/dl (Neg); LEUKOCYTE ESTERASE ,URINE NEGATIVE (Neg); NITRITES, URINE NEGATIVE (Neg); OCCULT BLOOD,URINE NEGATIVE (Neg); PH,URINE 7.5 (4.8-8.0); PROTEIN,URINE 30 mg/dl (Neg)
[2024-07-11 20:08] LABS: UA COLLECTION TYPE CLN CATCH MIDSTREAM
[2024-07-11 20:16] LABS: ANION GAP 14 (8-16); BLOOD UREA NITROGEN 14 MG/DL (7-18); BUN/CREATININE RATIO 13.1 (10.0-20.0); CALCIUM 9.1 MG/DL (8.5-10.1); CHLORIDE 105 MMOL/L (99-107); CREATININE 1.07 MG/DL (0.60-1.10); GLUCOSE 89 MG/DL (70-104); POTASSIUM 3.8 MMOL/L (3.5-5.1); SODIUM 139 MMOL/L (135-145); TOTAL CARBON DIOXIDE 20.4 MMOL/L (24-32); eCRCL 100 ML/MIN; eGFR 81 ML/MIN
[2024-07-11 20:18] LABS: URINE AMPHETAMINE SCREEN POSITIVE (Neg); URINE BARBITUATE SCREEN NEGATIVE (Neg); URINE BENZODIAZEPINES SCREEN POSITIVE (Neg); URINE CANNABINOID SCREEN POSITIVE (Neg); URINE COCAINE SCREEN NEGATIVE (Neg); URINE METHADONE SCREEN NEGATIVE (Neg); URINE OPIATE SCREEN NEGATIVE (Neg); URINE PHENCYCLIDINE SCREEN NEGATIVE (Neg)
[2024-07-11 20:20] LABS: WBC,URINE 0-4 /HPF (0-4)
[2024-07-11 20:21] LABS: AMORPHOUS URATES 3+; BACTERIA,URINE FEW /HPF (Neg); MUCUS STRANDS FEW /LPF (Neg); RBC,URINE NONE SEEN /HPF (0-2); SQUAMOUS EPITHELIAL CELL,UR FEW /LPF (FEW)
[2024-07-11 20:23] LABS: CAL OXALATE CRYSTALS 1+ /HPF (NEGATIVE)
[2024-07-11 20:47] LABS: THYROID STIMULATING HORMONE 0.74 ulU/ml (0.34-4.50)
[2024-07-11 20:49] LABS: ETHANOL < 10 MG/DL (<10)
--- NOTE | 2024-07-11 21:49 | Physician Documentation ---
History of Present Illness ~ Chief Complaint: Hallucinations Stated Complaint: MENTAL HEALTH ISSUES Time Seen by MD: 21:41 Primary Medical Doctor: [facility] Patient is seen today with complaints of hallucinations and is concerned for hurting himself. Patient denies any homicidal ideation but does admit to suicidal ideation. Patient denies any chest pain or shortness of breath or abdominal pain or nausea, vomiting, diarrhea. Patient has no other concern or complaint at this time. Medication Reconciliation Allergies: Coded Allergies: lithium (Verified Allergy, Severe, 07/11/24) Scheduled Buspirone HCl (Buspirone HCl), 1 TAB PO BID, (Reported) Cephalexin*Monohydrate* (Keflex*), 500 MG PO Q8H Divalproex ER* (Depakote ER*), 1,000 MG PO HS, (Reported) Divalproex ER* (Depakote ER*), 2 TAB PO HS Lactobacillus Rhamnosus (Culturelle), 10,000 MMU PO BID Nicotine 21 MG Patch* (Habitrol 21 MG Patch*), 1 PATCH TD DAILY Omeprazole (Prilosec), 20 MG PO QAM, (Reported) Pantoprazole Sodium (Protonix), 1 TAB PO DAILY Propranolol Hcl (Propranolol Hcl), 1 TAB PO BID, (Reported) Risperidone (Risperidone), 2 MG PO HS Risperidone (Risperidone), 1 TAB PO HS Tamsulosin Hcl* (Flomax*), 0.4 MG PO DAILY, (Reported) Topiramate (Topamax), 1 TAB PO DAILY AT 4PM, (Reported) Topiramate (Topamax), 100 MG PO DAILY, (Reported) Scheduled PRN Hydroxyzine Hcl* (Atarax*), 50 MG PO TID PRN for for anxiety/agitation Nicotine Polacrilex (Nicotine Lozenge), 2 MG BC Q2H PRN for NICOTINE CRAVING Past Medical History Past Medical History: Seizures, Asthma, Sleep Apnea, *GI/HEPATOBILIARY*, GERD, Kidney Stones, MRSA Abscess, *PSYCH*, Anxiety, Bipolar, Depression, Psychosis, Schizophrenia Past Surgical History: no surgical history Patient History: Cirrhosis of liver FH: lung cancer paternal grandfather Hepatitis C Alcohol Use: Sober Drug Use: marijuana, methamphetamine Lives with: Other Lives In: Other Occupation: unemployed Review of Systems Constitutional: Denies: chills, fever, weakness Eyes: Denies: pain, blurred vision ENT: Denies: ear pain, nose pain, throat pain, mouth pain Respiratory: Denies: cough, shortness of breath Cardiovascular: Denies: chest pain, palpitations Gastrointestinal: Denies: abdominal pain, nausea, vomiting Genitourinary: Denies: burning, dysuria Male Genitalia: Denies: penile discharge, testicular pain Neurological: Denies: headache, dizziness Musculoskeletal: Denies: pain, swelling Integumentary: Denies: rash, lesions Allergic/Immunologic: Denies: hives, itching Hematologic/Lymphatic: Denies: no symptoms reported Psychiatric: Denies: depression, anxiety Physical Exam Vital Signs: Temperature: 98.2, Source: Oral, Heart Rate: 110, Respiratory Rate: 16, BP: 132/86, Pulse Oximetry: 97, Weight: 90.910 Physical Exam General: Awake and Alert, no acute distress. HEENT: Conjunctiva pink, Sclera clear, Mucus Membranes moist. Neck: Supple without masses and tenderness. Resp: Unlabored. Lungs clear to auscultation bilaterally. Heart: Regular Rate and rhythm, normal S1 and S2 without murmur, rub or gallop. Abdomen: Soft and non tender no organomegaly Extremities: No cyanosis,clubbing or edema. Skin: Warm and Dry. Progress Results/Orders Results/Orders Vital Signs 07/11/24 07/11/24 19:09 19:28 Temp 98.2 Pulse 110 Resp 16 16 B/P (MAP) 132/86 Pulse Ox 97 Laboratory Tests Test 07/11/24 19:33 07/11/24 19:42 Urine Specimen Description Cln catch midstream Urine Color Yellow Urine Clarity Cloudy Urine pH 7.5 Urine Specific [place] 1.015 Urine Protein 30 H Urine Glucose (UA) Negative Urine Ketones Trace H Urine Occult Blood Negative Urine Nitrite Negative Urine Bilirubin Negative Urine Urobilinogen 1.0 Urine Leukocyte Esterase Negative Urine RBC None seen Urine WBC 0-4 Urine Squamous Epithelial Cells Few Urine Calcium Oxalate Crystals 1+ Urine Amorphous Urates 3+ Urine Bacteria Few Urine Mucus Few Volume Urine Centrifuged 10 ml Urine Comment Urine Opiates Screen Negative Urine Methadone Screen Negative Urine Fentanyl Screen Negative Urine Barbiturates Screen Negative Urine Phencyclidine Screen Negative Urine Amphetamines Screen Positive Urine Benzodiazepines Screen Positive Urine Cocaine Screen Negative Urine Cannabinoids Screen Positive Drug Screen Comment White Blood Count 8.6 Red Blood Count 5.82 Hemoglobin 17.7 Hematocrit 52.3 H Mean Corpuscular Volume 89.7 Mean Corpuscular Hemoglobin 30.4 Mean Corpuscular Hemoglobin Concent 33.9 Red Cell Distribution Width 13.9 Platelet Count 282 Mean Platelet Volume 10.0 Neutrophils (%) (Auto) 65.7 Lymphocytes (%) (Auto) 24.9 Monocytes (%) (Auto) 6.8 Eosinophils (%) (Auto) 2.2 Basophils (%) (Auto) 0.4 Neutrophils # (Auto) 5.6 Lymphocytes # (Auto) 2.1 Monocytes # (Auto) 0.6 Eosinophils # (Auto) 0.2 Basophils # (Auto) 0.0 CBC Comment Sodium Level 139 Potassium Level 3.8 Chloride Level 105 Carbon Dioxide Level 20.4 L Anion Gap 14 Blood Urea Nitrogen 14 Creatinine 1.07 Estimated GFR/1.73 m2 81 BUN/Creatinine Ratio 13.1 Glucose Level 89 Calcium Level 9.1 Albumin 4.0 Thyroid Stimulating Hormone (TSH) 0.74 Chemistry Comments Ethyl Alcohol Level < 10 Medical Decision Making Findings Patient is seen today with complaints of hallucinations and is concerned for hurting himself. Patient denies any homicidal ideation but does admit to suicidal ideation. Patient denies any chest pain or shortness of breath or abdominal pain or nausea, vomiting, diarrhea. Patient has no other concern or complaint at this time. Patient is medically cleared for psychiatric evaluation. Departure Disposition: 30 STILL A PATIENT Impression: Primary Impression: Hallucinations Additional Impressions: Mental disorder Suicidal thoughts Condition: Stable Discharge Instructions: Schizophrenia Additional Instructions: Transfer orders for [facility]: At this time there is no evidence of an emergent medical condition that would preclude (admission/transfer) to a psychiatric unit via [facility] protocol for further psychiatric, as well as medical evaluation and treatment. At this time I have no reason to believe that transfer via [facility] protocol would have serious medical compromise in the patient's health. Patient is medically cleared for psychiatric evaluation. Referrals: NO PRIMARY CARE PROVIDER (PCP) Signature Scribe Signature: No scribe Attestation: No scribe [facility] July 11, 2024 21:48
[2024-07-11] MEDS: haloperidol 5mg tablet PO ONE (22:47)
[2024-07-12] MEDS ORDERED: ALBU18HF2 INH (07:40)
[2024-07-12] MEDS ORDERED: DOCU100C40 PO (07:40)
[2024-07-12] MEDS ORDERED: HYDR-3686 PO (07:40)
[2024-07-12] MEDS ORDERED: ATOM25CA6 PO (07:40)
[2024-07-12] MEDS ORDERED: RISP-32 PO (07:40)
[2024-07-12] MEDS ORDERED: NICO-687 TD (07:41)
[2024-07-12] MEDS ORDERED: albuterol 2.5 MG/3 ML nebule NEB PRN (09:05)
[2024-07-12] MEDS: topiramate 100mg tablet PO SCH (16:40)
[2024-07-12] MEDS: hydrOXYzine 25 MG tablet PO PRN (19:00)
[2024-07-12 20:11] VITALS: BP 119/82; PULSE 89; RESP 15; TEMP 97.1; O2SAT 96
[2024-07-12] MEDS ORDERED: acetaminophen 325mg tablet PO PRN (20:25)
[2024-07-12] MEDS ORDERED: loperamide 2mg capsule PO PRN (20:25)
[2024-07-12] MEDS ORDERED: magnesium hydroxide 30ml (MOM) UD suspension PO PRN (20:25)
[2024-07-12] MEDS ORDERED: chlorproMAZINE 25mg tablet PO PRN (20:25)
[2024-07-12] MEDS ORDERED: hydrOXYzine 25 MG tablet PO PRN (20:25)
[2024-07-12] MEDS: docusate sod 100mg capsule PO SCH (22:07)
[2024-07-12] MEDS: divalproex sod 250mg ER (24-hour) tablet PO SCH (22:07)
[2024-07-12] MEDS: traZODone 50mg tablet PO PRN (22:07)
[2024-07-12] MEDS: propranolol 10mg tablet PO SCH (22:07)
[2024-07-12] MEDS: acetaminophen 325mg tablet PO PRN (22:07)
[2024-07-12] MEDS: risperiDONE 2mg tablet PO SCH (22:08)
[2024-07-12] MEDS: diphenhydrAMINE 25mg capsule PO PRN (22:08)
[2024-07-12] MEDS: mag hydrox/Alum hydrox/simeth 30ml oral suspension PO PRN (23:27)
[2024-07-13] MEDS ORDERED: pantoprazole 40 MG vial IV ONE (01:50)
[2024-07-13] MEDS: pantoprazole 40mg Tablet.DR PO ONE (02:09)
[2024-07-13 03:58] VITALS: RESP 16; O2SAT 96
[2024-07-13 05:40] LABS: CHOL/HDL RATIO 5.9 (0.00-4.99); CHOLESTEROL 219 MG/DL (0-200); HDL CHOLESTEROL 37 MG/DL (35-60); LDL CHOLESTEROL 135 MG/DL (50-100); TRIGLYCERIDES 221 MG/DL (20-135)
[2024-07-13 05:41] LABS: HEMOGLOBIN A1C 4.8 % (4.5-6.2)
[2024-07-13] MEDS: ondansetron 4mg rapidly disintigrating tab PO PRN (05:52)
[2024-07-13 07:00] VITALS: RESP 20; O2SAT 98
[2024-07-13] MEDS: tamsulosin 0.4mg capsule PO SCH (07:59)
[2024-07-13 08:00] VITALS: BP 119/70; PULSE 71; RESP 20; TEMP 96.8; O2SAT 98
[2024-07-13] MEDS: nicotine 21mg patch - 24 hr TD SCH (08:00)
[2024-07-13] MEDS: pantoprazole 40mg Tablet.DR PO SCH (08:00)
[2024-07-13] MEDS ORDERED: pantoprazole 40mg Tablet.DR PO SCH (13:05)
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
[2024-07-13 16:10] LABS: ETHANOL < 10 MG/DL (<10)
[2024-07-13 16:53] LABS: LDL CHOLESTEROL 132 MG/DL (50-100)
[2024-07-13 19:00] VITALS: RESP 14; O2SAT 95
--- NOTE | 2024-07-13 19:02 | HISTORY AND PHYSICAL ---
History & Physical Providers to CC ~ History of Present Illness Reason for Admit\Complaint: 5150 hold for grave disability History of Present Illness Patient is 33-year-old male with known history of History of seizure disorder, obesity, sleep apnea, history of asthma, GERD, history of kidney stones, history of MRSA, history of schizophrenia. He is here in mental health unit for management of his auditory hallucination and paranoia. His urine drug screen is also positive for meth use and cannabinoids. Patient admitted that he drinks every couple of weeks alcohol beer or vodka. Patient denies having any acute medical issues at this point of time. Allergies: Coded Allergies: lithium (Verified Allergy, Severe, 07/11/24) Home Medications Home Medications Active Reported Habitrol 21 MG Patch* (Nicotine) 1 Each Patch.td24 1 Patch TD DAILY Atomoxetine HCl 25 Mg Capsule 1 Cap PO QAM Docusate Sodium 100 Mg Caps 1 Cap PO BID Ventolin Hfa (Albuterol Sulfate) 90 Mcg Hfa.aer.ad 2 Puffs INH Q4HPRN PRN 30 Days Risperidone 2 Mg Tablet 1 Tab PO HS Atarax* (Hydroxyzine HCl) 25 Mg Tablet 2 Tab PO BID PRN Topamax (Topiramate) 100 Mg Tablet 1 Tab PO DAILY AT 4PM 30 Days Flomax* (Tamsulosin HCl) 0.4 Mg Cap.sr.24h 0.4 Mg PO DAILY Propranolol Hcl 20 Mg Tablet 1 Tab PO BID Depakote ER* (Divalproex Sodium) 500 Mg Tab.sr.24h 1,000 Mg PO HS Prilosec (Omeprazole) 40 Mg Capsule 20 Mg PO QAM Past Medical History Past Medical History History of seizure disorder, obesity, sleep apnea, history of asthma, GERD, history of kidney stones, history of MRSA, history of schizophrenia Past Surgical History Surgical History Comment Patient had surgery on his tailbone Family History Family History: Cirrhosis of liver FATHER (liver cirrhosis, hep C), , Age: 50, Cause: ALC (alcoholic liver cirrhosis), Onset:50's - 60 FH: colon cancer MOTHER (Behavioral health issues, Hep C), Age: 46, Onset:40's - 50 FH: lung cancer paternal grandfather Hepatitis C MOTHER (Behavioral health issues, Hep C), Age: 46 Past Social History Social History Comment He does drink alcohol couple of times in a week usually drinks beer or vodka. Patient has history of substance abuse ROS ROS Review of system as mentioned above in HPI rest of the review of system unremarkable. Exam Vitals: Vital Signs Date Time Temp Pulse Resp B/P (MAP) Pulse Ox O2 Delivery O2 Flow Rate FiO2 07/13/24 08:00 96.8 71 20 119/70 (86) 98 Room Air General: General-patient not in any acute distress, alert awake oriented, obese, chronically ill-appearing HEENT-atraumatic normocephalic, neck supple without elevated JVD, no thyromegaly or carotid bruit. No lymphadenopathy bilaterally. Oropharynx normal no signs of enlarged lymph node in neck Eyes-no icterus or pallor seen in eyes Chest-clear to auscultation bilaterally, breathing nonlabored no tachypnea, no wheezing, no crepitation, no crackles. Heart-S1-S2 normal, regular heart rate no murmur Abdomen bowel sounds positive on auscultation, soft nondistended nontender no guarding, no rigidity Skin no active skin rash Neurology-grossly intact, nonfocal alert awake Extremity- no pedal edema able to move all 4 extremities, ambulates Psychiatry - patient is not confused or agitated cooperated during physical examination Diagnostic Data Last Recorded Lab Results: 07/11/24194107/11/241941 Additional Plan This is a 33year-old male admitted to the mental health under the care of psychiatrist for: * Schizoaffective disorder, grave disability and management per psychiatrist. History of seizure disorder. * Benign prostatic hyperplasia, on tamsulosin. * Anxiety, propranolol. * Gastroesophageal reflux disease, pantoprazole 40 mg started * substance abuse with meth, history of alcohol use * hyperlipidemia- lipid levels reviewed, started on atorvastatin today. Further management per psychiatrist. Reviewed patient's labs and diagnostic workup and old records. Will Continue to follow patient as needed or as per protocol Date of Service: July 13, 2024 Billing Provider: ALIDA SIERRA MD Common Visit Codes: [id number] INP/OBS CARE (LOW) ALIDA SIERRA MD July 13, 2024 19:02
[2024-07-13 20:00] VITALS: BP 94/73; PULSE 73; RESP 14; TEMP 97.9; O2SAT 95
[2024-07-13] MEDS: risperiDONE 2mg tablet PO SCH (20:27)
[2024-07-14 07:00] VITALS: RESP 16; O2SAT 97
[2024-07-14] MEDS: atorvastatin 20mg tablet PO SCH (07:53)
[2024-07-14 08:00] VITALS: BP 108/65; PULSE 68; RESP 16; TEMP 97.9; O2SAT 97
--- NOTE | 2024-07-14 13:44 | PROGRESS NOTE ---
Progress Note Dictate Providers to CC ~ Central Line/PICC still needed: N\\A Antibiotic Ordered?: No MRSA Education MRSA Education Provided to pt: No Objective Vitals Vital Signs Date Time Temp Pulse Resp B/P (MAP) Pulse Ox O2 Delivery O2 Flow Rate FiO2 07/14/24 08:00 97.9 68 16 108/65 (79) 97 Room Air Lab Results: 07/11/24194107/11/241941 Counseling Services Smoking & Tobacco Cessation: > 10 Minutes Problem\\Assessment\\Plan Problems/Diagnosis: (1) Schizoaffective disorder (2) Major depression, recurrent (3) Seizure disorder (4) Hallucinations (5) Methamphetamine use disorder, moderate, dependence (6) Cannabis abuse Psychiatrist's Progress Note Date of Service: July 14, 2024 Notes CHART REVIEW Pt was admitted on a 5150 for GD. Pt. reports previous admissions to [facility]. Pt. endorses SI and command AH, but contracts for safety on the unit. Per 5150, patient is GD and unable to plan for his own needs. Pt reports smoking 1 pack of cigarettes a day and occasional abuse of Adderall. Pt. tox screen was positive for amphetamines and cannabis. Pt. reports history of anxiety, bipolar disorder, depression and schizoaffective disorder. Pt also reported hx of seizures, asthma, GERD and "recent neck and back pain". Pt stated that one week ago he received a long acting injection of Risperdal and "it made me worse". Pt. lives alone in an apartment. Pt has an [facility] worker that comes to his house 2 hours a day 5 days a week ASSESSMENT The patient was interviewed in observation room. The patient was actively sitting in rec room. The patient endorses "I am alright; hanging in there." "I am eager to get home because it rides on my relationship with my [facility] worker because he will not be able to get paid anymore if I am here." "I have not felt like hurting myself since I came in." "The voices I hear occasionally just depends on when I get the meds at the right time; actually tolerable." "I can stand my own thoughts and it do not seem like it is someone else in my head." Denies SI. Denies HI. Denies VH. The patient is stable no acute distress noted. The patient is less depressed, less anxious, and engaged during session. Per staff report patient is medication compliant. Will continue daily assessment and adjusting treatment as needed. Closely monitor behavior and response to medication during hospitalization. Results Of any Diagn. Testing REVIEW OF LABS URINE TOX SCREEN POSITIVE AMPHETAMINES BENZODIAZEPINES AND CANNABIS URINALYSIS NEGATIVE SODIUM 139 POTASSIUM 3.8 CHLORIDE 105 ANION GAP 14 BUN 14 CREATININE 1.07 CALCIUM 9.1 ALBUMIN 4.0 WBC 8.6 RBC 5.82 HEMOGLOBIN 17.7 HEMATOCRIT 52.3 PLATELET 282 Appearnace: Other (APPROPRIATE. WEARING GREEN SCRUBS.BROWN HAIR.FULL FACIAL HAIR.BILATERAL ARM TATTOOS.) Speech: Other (CIRCUMSTANTIAL) Eye Contact: Normal Motor Activity: Normal Affect: Constricted Orientation Impairment: None Memory Impairment: None Attention: Normal Hallucinations: Auditory Other: None Suicidality: None Homicidality: None Delusions: None Behavior: Cooperative Insight: Fair, Poor Judgment: Poor Treatment PROPRANOLOL 20 MG P.O. BID Increase RISPERIDONE 4 MG P.O. Q.H.S. TRAZODONE 50 MG P.O. Q.H.S. PRN DEPAKOTE ER A 1000 MG P.O. Q.H.S. BENADRYL 50 MG P.O. Q.6 PRN THORAZINE 50 MG P.O. Q.6 PRN HYDROXYZINE 50 MG P.O. B.I.D. PRN HYDROXYZINE 50 MG P.O. Q.6 PRN Monitoring by Staff, Milieu, Group, and Individual counseling as needed -- According to the [place] Suicide Assessment the above named patient is on Q15 MINUTE CHECKS. [id number]- We are still titrating medications to an effective dose while maintaining a therapeutic environment to prevent decompensation and readmission. REVIEW OF Clinical notes [X ] RN notes [X] PCT documentation [X] SW notes Labs [ X] Medications [X] Care trends/care activity [X] Vitals [X] DISCUSSION WITH driving school instructor [X] Staff SW [X] Treatment Team [X] Discharge UNSURE AT THIS TIME. DISCHARGE HOME ONCE STABLE. CODING VISIT-PSYCHIATRY Date of Service: July 14, 2024 Billing Provider: ALICE GOLDSTEIN APRN Psych Common Visit Codes: [id number] INP/OBS CARE(Low) ALICE GOLDSTEIN APRN July 14, 2024 13:44
[2024-07-14] MEDS: NICOTINE POLACRILEX 2 MG LOZENGE BC PRN (17:40)
[2024-07-14 19:00] VITALS: RESP 14; O2SAT 99
[2024-07-14 20:00] VITALS: BP 95/54; PULSE 65; RESP 14; TEMP 98.3; O2SAT 99
[2024-07-15] MEDS ORDERED: RISP-32 PO (07:17)
[2024-07-15] MEDS ORDERED: ATOR20TA66 PO (07:17)
[2024-07-15 08:00] VITALS: BP 122/80; PULSE 72; RESP 16; TEMP 98.4; O2SAT 98
[2024-07-15 08:54] LABS: CHOL/HDL RATIO 4.9 (0.00-4.99); CHOLESTEROL 165 MG/DL (0-200); HDL CHOLESTEROL 34 MG/DL (35-60); LDL CHOLESTEROL 101 MG/DL (50-100); TRIGLYCERIDES 180 MG/DL (20-135)
--- NOTE | 2024-07-15 13:29 | DISCHARGE SUMMARY ---
Discharge Summary Providers to ~ Discharge Summary Admission Diagnosis: SCHIZOAFFECTIVE DISORDER.MAJOR DEPRESSIVE RECURRENT.CANNABIS AND METH ABUSE Hospital Course DATE OF ADMISSION: DATE OF DISCHARGE: Discharge Diagnosis\\Comment: SCHIZOAFFECTIVE DISORDER. MAJOR DEPRESSIVE RECURRENT. CANNABIS AND METH ABUSE Operations\\Procedures: NONE Consultants: MEDICAL TEAM Complications: NONE Condition on DC: Stable 2 or more antipsychotic used: No 2/more antipsychotic addressed: No Does Patient smoke: Yes Smoking education given.: Yes New Medications: Atorvastatin Calcium (Atorvastatin Calcium) 20 Mg Tablet 20 MG PO DAILY for 14 Days, #14 TAB Risperidone (Risperidone) 2 Mg Tablet 4 MG PO HS for 14 Days, #28 TAB Continued Medications: Albuterol Sulfate (Ventolin Hfa) 90 Mcg Hfa.aer.ad 2 PUFFS INH Q4HPRN PRN for wheezing for 30 Days, #18 GM 0 Refills Atomoxetine HCl (Atomoxetine HCl) 25 Mg Capsule 1 CAP PO QAM, CAP 0 Refills Divalproex ER* (Depakote ER*) 500 Mg Tab.sr.24h 1000 MG PO HS Docusate Sodium (Docusate Sodium) 100 Mg Caps 1 CAP PO BID, #60 CAP Hydroxyzine Hcl* (Atarax*) 25 Mg Tablet 2 TAB PO BID PRN for for anxiety/agitation, TAB Nicotine 21 MG Patch* (Habitrol 21 MG Patch*) 1 Each Patch.td24 1 PATCH TD DAILY, PATCH Omeprazole (Prilosec) 40 Mg Capsule 20 MG PO QAM, CAP Propranolol Hcl (Propranolol Hcl) 20 Mg Tablet 1 TAB PO BID Tamsulosin Hcl* (Flomax*) 0.4 Mg Cap.sr.24h 0.4 MG PO DAILY Topiramate (Topamax) 100 Mg Tablet 1 TAB PO DAILY AT 4PM for 30 Days, #60 TAB 0 Refills Discontinued Medications: Risperidone (Risperidone) 2 Mg Tablet 1 TAB PO HS, TAB 0 Refills Discharge Summary: CHART REVIEW Pt was admitted on a 5150 for GD. Pt. reports previous admissions to [facility]. Pt. endorses and command , but contracts for safety on the unit. Per 5150, patient is GD and unable to plan for his own needs. Pt reports smoking 1 pack of cigarettes a day and occasional abuse of Adderall. Pt. tox screen was positive for amphetamines and cannabis. Pt. reports history of anxiety, bipolar disorder, depression and schizoaffective disorder. Pt also reported hx of seizures, asthma, GERD and "recent neck and back pain". Pt stated that one week ago he received a long acting injection of Risperdal and "it made me worse". Pt. lives alone in an apartment. Pt has an [facility] worker that comes to his house 2 hours a day 5 days a week Patient actively seen and examined on day of discharge 07/15/2024, by myself, TRENTON Cruz. The patient is interviewed in observation room. The patient endorses "Good." Denies SI. Denies HI. Denies AVH. Amanda was able to formulate a safety plan which includes going to the emergency room if symptoms return or worsen. Call [phone] or [phone] for immediate assistance if necessary. During his hospital stay, Amanda receive multidisciplinary treatment he adhered to his medication regimen and has been pleasant and cooperative. He denies any suicidal ideation (SI), homicidal ideation (HI), auditory/visual hallucination (HI). Staff has reported no behavioral issues, and the patient has been sleeping well, adequate food intake, with no mood or behavioral changes noted. The decision to discharge Amanda was made in consensus with the treatment team, including the social services designee, hospital unit clerk, and dehydration unit operator on duty. Patient was E scribed a 14 day supply of medications to preferred pharmacy. MENTAL STATUS EXAM APPEARANCE: APPROPRIATELY. DRESSED IN STREET CLOTHING. SPEECH: CIRCUMSTANCE EYE CONTACT: NORMAL AFFECT: CONGRUENT WITH MOOD MOOD: "GOOD" ORIENTATION IMPAIRMENT: NONE MEMORY IMPAIRMENT: NONE ATTENTION: NORMAL HALLUCINATIONS: NONE SUICIDALITY: NONE HOMICIDALITY: NONE DELUSIONS: NONE BEHAVIOR: COOPERATIVE, PLEASANT JUDGMENT: FAIR INSIGHT: FAIR Continue Current Inpatient Psychotropic Regimen @ home Follow-Up with Psychiatric Provider Safety Plan Discussed DISCHARGE CONDITION: His readiness for discharge is supported by his stable mental status, adherence to treatment, and proactive approach to managing his mental health. Denies SI. Denies HI. Denies A/V/H. The patient has been informed to continue follow-up care to ensure ongoing support and monitoring. Patient discharged home. *Problems/Diagnosis: (1) Schizoaffective disorder Status: Chronic (2) Major depression, recurrent (3) Seizure disorder Status: Acute (4) Hallucinations Status: Acute (5) Methamphetamine use disorder, moderate, dependence Status: Acute (6) Cannabis abuse Total Time Spent on D/C: > 30 Minutes Counseling Services Smoking & Tobacco Cessation: > 10 Minutes CODING VISIT-PSYCHIATRY Date of Service: July 15, 2024 Billing Provider: ALICE GOLDSTEIN APRN Psych Common Visit Codes: [id number] DISCH DAY >30min ALICE GOLDSTEIN APRN July 15, 2024 13:26
--- NOTE | 2024-07-15 17:00 | PROGRESS NOTE ---
Daily Progress Note Providers to CC ~ Antibiotic Timeout Antibiotic Ordered?: No Subjective Patient was seen today in his room he looks comfortable still noticed off and on pain over abdomen. He mentioned that he will be discharged today which I confirmed with nursing staff in mental health unit. Objective Vital Signs Date Time Temp Pulse Resp B/P (MAP) Pulse Ox O2 Delivery O2 Flow Rate FiO2 07/15/24 08:00 16 98 Room Air 07/15/24 08:00 98.4 72 122/80 (94) Result Diagram: 07/11/24194107/11/241941 General-patient not in any acute distress, alert awake oriented, obese, chronically ill-appearing HEENT-atraumatic normocephalic, neck supple without elevated JVD, no thyromegaly or carotid bruit. No lymphadenopathy bilaterally. Oropharynx normal no signs of enlarged lymph node in neck Eyes-no icterus or pallor seen in eyes Chest-clear to auscultation bilaterally, breathing nonlabored no tachypnea, no wheezing, no crepitation, no crackles. Heart-S1-S2 normal, regular heart rate no murmur Abdomen bowel sounds positive on auscultation, soft nondistended nontender no guarding, no rigidity Skin no active skin rash Neurology-grossly intact, nonfocal alert awake Extremity- no pedal edema able to move all 4 extremities, ambulates Psychiatry - patient is not confused or agitated cooperated during physical examination Problem\Assessment\Plan This is a 33year-old male admitted to the mental health under the care of psychiatrist for: * Schizoaffective disorder, grave disability and management per psychiatrist. History of seizure disorder. * Benign prostatic hyperplasia, on tamsulosin. * Anxiety, propranolol. * Gastroesophageal reflux disease, pantoprazole 40 mg started * substance abuse with meth, history of alcohol use * hyperlipidemia- lipid levels reviewed, started on atorvastatin today. Further management per psychiatrist. As per mental health nursing staff patient will be discharged today Date of Service: July 15, 2024 Billing Provider: ALIDA SIERRA MD Common Visit Codes: [id number] INP/OBS CARE(LOW) ALIDA SIERRA MD July 15, 2024 17:00
== END 2024-07-15 14:07 | disposition home or self-care (01) | DRG 885 ==
LOC: ER 19:06 → ADULT MH 07-12 18:00 → UNDOADMIN 07-12 18:00 → ADULT MH 07-12 20:11
PROVIDERS: ADMIT Psychiatry & Neurology Psychiatry; ATTEND Psychiatry & Neurology Psychiatry
PROC: GZHZZZZ Group Psychotherapy (ICD-10-PCS; principal; 2024-07-13)
PROC: GZ51ZZZ Individual Psychotherapy, Behavioral (ICD-10-PCS; 2024-07-13)
DX: F25.9 Schizoaffective disorder, unspecified (principal); F15.20 Other stimulant dependence, uncomplicated; R45.851 Suicidal ideations; F33.9 Major depressive disorder, recurrent, unspecified; F41.9 Anxiety disorder, unspecified; K74.60 Unspecified cirrhosis of liver; Z20.822 Contact with and (suspected) exposure to COVID-19; F17.210 Nicotine dependence, cigarettes, uncomplicated; J45.909 Unspecified asthma, uncomplicated; N40.0 Benign prostatic hyperplasia without lower urinary tract symptoms; K21.9 Gastro-esophageal reflux disease without esophagitis; G47.30 Sleep apnea, unspecified; G40.909 Epilepsy, unspecified, not intractable, without status epilepticus; Z88.8 Allergy status to other drugs, medicaments and biological substances; Z79.899 Other long term (current) drug therapy
CPT/HCPCS: 36415; 80048; 80061; 80305; 80320; 81001; 83036; 83721; 84443; 85025; 87081; 87811; 99285; Q0163; Q0177